=== PATIENT | male | born 1950 | race Caucasian/White ===

== ENCOUNTER 2018-07-13 06:16 | Inpatient (IN) ==
--- NOTE | 2018-06-08 15:59 | PAT Medication Instructions ---
Medication Instructions Date of Service June 08, 2018 Home Medications lisinopril 10 mg PO QAM DO NOT take the morning of surgery lisinopril 10 mg PO QAM Other Notes If you have any questions please call us at [phone] or [phone] or [phone] or [phone]
--- NOTE | 2018-06-11 10:12 | Anesthesiology Consultation ---
Date of Service June 11, 2018 Assessment & Plan (1) Encounter for pre-operative examination: Chart Review Chart Review: Acceptable Risk for Surgery and Patient seen in Pre Admission Testing Teaching & Discussion Pre-Anesthesia Teaching/Discussion Notes: Instructed NPO after midnight before surgery,except medications with 15 cc of water. Medication instructions provided according to the PAT guidelines. History Surgery Operation Date: 07/13/18 08:30 Proposed Procedures p Right Reverse Total Shoulder Arthroplasty - Baljit Murphy DO Height/Weight Height: 5 ft 9 in Weight: 106 kg Allergies Allergy/AdvReac Type Severity Reaction Status Date / Time Penicillins Allergy Mild UNKNOWN Unverified 06/11/18 10:29 REACTION Medications Home Medications Medication Instructions Recorded Confirmed Last Taken lisinopril 10 mg PO QAM 06/06/18 06/06/18 Unknown Past Medical History Medical History DJD (degenerative joint disease) Hypertension Obesity Past Family History Family History Mother Family history of diabetes mellitus Past Surgical History Surgical History Hx of tonsillectomy Hx of total knee replacement RIGHT Past Anesthesia History No Hx of Anesthesia Complications and No Family Hx of Anesthesia Complications History of PONV No Motion Sickness Screening History of Motion Sickness: No Social History Smoking Status: Former smoker Do You Dip or Chew Tobacco: Yes (REMOTE) Smoking End Date: QUIT 30+ YEARS AGO Hx Alcohol Use: Yes Alcohol type: beer alcohol intake frequency: holidays/special occasions only Hx Substance Use: No Exercise / Class Metabolic Activity II 4-5 Yardwork/Stairs/Walk up hill Review of Systems Right shoulder pain with RUE radiculopathy. Patient denies chest pain, shortness of breath, dyspnea on exertion, cough, wheezing, palpitations. Physical Exam Vital Signs VITALS BP 130/81 P 56 TEMP 97.8 SP02 93%RA RESP 18 Full neck and c-spine range of motion. Short neck. Full TMJ range of motion. TMD 3.5 finger breaths Mallampati Score 1 Dentition: intact Lungs: clear throughout to auscultation Cardiac: regular rate and rhythm, no murmurs noted Spine: normal Carotid arteries: negative bruit Extremities: no edema Testing Electrocardiogram Date: 06/11/18 SB at 55bpm. Chest X-Ray Date: 06/11/18 Findings: + NAD The heart is at the upper limits of normal in size. There is mild aortic tortuosity/ectasia. Echocardiogram Date: 12/29/15 EF 60-65%. No RWMA. No significant valvular disease. Laboratory Results 06/11/18 10:43 06/11/18 10:43 Blood Type A Positive 06/11/18 10:43 Antibody Screen NEGATIVE 06/11/18 10:43 PT 10.8 Seconds (9.0-12.0) 06/11/18 10:43 INR 1.1 (0.9-1.1) 06/11/18 10:43 APTT 28.0 Seconds (21.0-31.0) 06/11/18 10:43
--- NOTE | 2018-06-11 11:25 | XRay Report ---
XR chest Pre-admission PA/Lat CLINICAL HISTORY: Preoperative chest COMPARISON STUDY: 02/03/2015 FINDINGS: The heart is at the upper limits of normal in size. There is mild aortic tortuosity/ectasia . There is no failure. There is no focal pulmonary consolidation. There are no pleural effusions.[ IMPRESSION: No active disease in the chest. Electronically signed by: Alec Kumar M.D. 06/11/2018 11:24 AM
[2018-06-11 12:01] LABS: Basophils # (auto) 0.03 K/uL (0-0.2); Basophils % (auto) 0.5 %; Eosinophils # (auto) 0.27 K/uL (0-0.5); Eosinophils % (auto) 4.1 %; Hematocrit (blood only) 44.5 % (42-52); Hemoglobin 14.6 g/dL (14.0-18.0); Immature Granulocytes # (auto) 0.02 K/uL (0.00-0.02); Immature Granulocytes % (auto) 0.3 %; Lymphocytes # (auto) 1.97 K/uL (1.2-3.4); Lymphocytes % (auto) 30.2 %; Mean Corpuscular Hgb Conc 32.8 g/dL (32-36); Mean Platelet Volume 9.9 fL (7.4-10.4); Monocytes # (auto) 0.59 K/uL (0.11-0.59); Neutrophils # (auto) 3.65 K/uL (1.4-6.5); Neutrophils % (auto) 55.9 %; Platelet Count 274 K/uL (130-400); RDW Coefficient of Variation 13.9 % (11.5-14.5); RDW Standard Deviation 45.5 fL (36.4-46.3); White Blood Count 6.53 K/uL (4.8-10.8)
[2018-06-11 12:11] LABS: BUN Creatinine Ratio 24.4 (10-20); Calcium 9.1 mg/dl (8.5-10.1); Creatinine Clr Calc Pharmacy 72.7 ml/min; Est GFR (African American) 74.8; Est GFR (Non-African American) 64.6; Potassium 4.5 mmol/L (3.5-5.1)
[2018-06-11 12:12] LABS: INR 1.1 (0.9-1.1); Partial Thromboplastin Ratio 1.1; Prothrombin Time 10.8 Seconds (9.0-12.0)
--- NOTE | 2018-07-12 20:24 | History & Physical Report ---
Date of Service July 12, 2018 Assessment & Plan (1) Rotator cuff arthropathy of right shoulder: We will proceed with a right reverse shoulder arthroplasty. Postoperatively he will be placed in a sling and kept overnight for postoperative medical management. He plans to use [facility] upon discharge. Present on Admission?: Yes History of Present Illness Chief Complaint: Rotator cuff arthropathy of the right shoulder Primary Care Provider: Baljit Hutson is a pleasant 67-year-old male who is been having right shoulder pain for some time. He was diagnosed with a right rotator cuff tear in [address] Bowman with an MRI. He did not have surgery at that time. Over the past several months, his pain is gotten progressively worse. He is having a hard time lifting his arm above shoulder height. X-rays and clinical examination were diagnostic for rotator cuff arthropathy of the right shoulder. After failing conservative treatment, he has elected to proceed with a right reverse shoulder arthroplasty. Allergies Allergy/AdvReac Type Severity Reaction Status Date / Time Penicillins Allergy Mild UNKNOWN Unverified 06/11/18 10:29 REACTION Home Medications Home Medications Medication Instructions Recorded Confirmed Type lisinopril 10 mg PO QAM 06/06/18 06/06/18 History Past Med/Surg History Medical History DJD (degenerative joint disease) Hypertension Obesity Surgical History Hx of tonsillectomy Hx of total knee replacement RIGHT Family History Mother Family history of diabetes mellitus Social History Current Living Situation: Spouse Other Information That Helps Us Care for You: No Feels Safe at Home: Yes Safety Concerns: Feels Safe At This Time Smoking Status: Former smoker Do You Dip or Chew Tobacco: Yes (REMOTE) Smoking End Date: QUIT 30+ YEARS AGO Hx Alcohol Use: Yes Alcohol type: beer Alcohol Intake Frequency: holidays/ special occasions only Hx Substance Use: No Beliefs That Will Affect Care: None Preferred Language: Stateless Communication Ability: Effective Review of Systems All systems reviewed & are unremarkable except as noted in HPI & below Physical Exam 2 Constitutional: WD/WN, vitals as above Eyes: PERRL, conjunctivae normal, anicteric sclerae ENMT: external ear and nose normal, oropharynx normal Neck: trachea midline, no thyromegaly Respiratory: normal respiratory effort Cardiovascular: RRR, no murmur, no edema Gastrointestinal (Abdomen): normal bowel sounds, soft, nontender, no hepatosplenomegaly Musculoskeletal: Physical examination of the right shoulder reveals decreased range of motion and significant weakness. There is tenderness palpation along the anterior glenohumeral joint line. The right upper extremity is neurovascularly intact. Psychiatric: A+Ox3, euthymic affect Results & Data Diagnostic Findings Radiographs of the right shoulder show some signs of osteoarthritis with blunting of the greater tuberosity and some superior migration of the humeral head on the glenoid.
[~2018-07-13 06:16] MED LIST: ACETAMINOPHEN 500 MG TAB PO SCH; CEFAZOLIN - ALLERGY NOTED TO ORDERED MEDICATION SCH; CEFAZOLIN 2000MG 2,000 MG/15 ML SYR IV SCH; FAMOTIDINE 20 MG TAB PO SCH; GABAPENTIN 300 MG PO SCH; LR 15ML/HR IV SCH; LR 60ML/HR IV SCH; ROPIVACAINE 0.5% 5 MG/ML 30 ML VIAL ONE; ROPIVACAINE 0.5% HCL/PF 150 MG, BUPIVACAINE 0.5% MPF 30 ML, EPINEPHrine 30MG/30ML (OR U... INFIL SCH; TRANEXAMIC ACID 1,000 MG **IV Pre-op IV SCH
[2018-07-13] MEDS ORDERED: TRANEXAMIC ACID 1,000 MG **IV Intra-op IV SCH (06:30)
--- NOTE | 2018-07-13 06:50 | History & Physical Bridge Note ---
Date of Service July 13, 2018 History & Physical Bridge Note I have examined the patient, reviewed the History & Physical and in the interval since the performance of the History & Physical I have noted the following changes of clinical significance: no changes noted
[2018-07-13] MEDS ORDERED: POVIDONE-IODINE OP SOLN 30 ML BTL ONE (07:07)
[2018-07-13] MEDS ORDERED: ORTHO JOINT ANESTHETIC ONE (07:07)
[2018-07-13] MEDS ORDERED: BACITRACIN INJ 50,000 UNIT VIAL ONE (07:12)
[2018-07-13] MEDS ORDERED: MIDAZOLAM HCL 1 MG/ML 2ML VIAL ONE ×2 (07:22→07:23)
[2018-07-13] MEDS ORDERED: fentaNYL citrate 100 MCG/2 ML VIAL ONE (07:22)
[2018-07-13] MEDS ORDERED: ONDANSETRON INJ 2 MG/ML 2 ML VIAL ONE (07:22)
[2018-07-13] MEDS ORDERED: GLYCOPYRROLATE 0.2 MG/ML VIAL ONE (07:22)
[2018-07-13] MEDS ORDERED: LARYING-O-JET KIT (LTA) ONE (07:22)
[2018-07-13] MEDS ORDERED: DEXAMETHASONE SOD INJ 4 MG/ML VIAL ONE (07:22)
[2018-07-13] MEDS ORDERED: PROPOFOL IV EMULSION 10 MG/ML 20 ML VIAL IV ONE (07:22)
[2018-07-13] MEDS ORDERED: LIDOCAINE HCL 2% 2 ML VIAL/AMP(20MG/ML) INFIL ONE (07:22)
[2018-07-13] MEDS ORDERED: NEOSTIGMINE METHYLSULFATE 5 MG/5 ML SYR ONE (07:22)
[2018-07-13] MEDS ORDERED: BUPIVACAINE 0.5 % 5 MG/1 ML MPF 30ML VIAL ONE (07:51)
[2018-07-13] MEDS ORDERED: ATROPINE SULFATE 0.1 MG/ML 10ML SYR IV PRN (08:11)
[2018-07-13] MEDS ORDERED: LABETALOL HCL IV 5 MG/ML 20ML IV PRN (08:11)
[2018-07-13] MEDS ORDERED: ONDANSETRON INJ 2 MG/ML 2 ML VIAL IV PRN ×2 (08:11→12:17)
[2018-07-13] MEDS ORDERED: HYDROmorphone INJ 1 MG/ML SYRINGE IV PRN (08:11)
[2018-07-13] MEDS ORDERED: KETOROLAC TROMETHAMINE 15 MG/ML VIAL IV PRN (08:11)
[2018-07-13] MEDS ORDERED: ePHEDrine sulfate 50 MG/ML SYR ONE (08:53)
[2018-07-13] MEDS ORDERED: PHENYLEPHRINE 100MCG/ML 5ML SYR ONE (08:53)
[2018-07-13] MEDS ORDERED: ROCURONIUM BROMIDE 10 MG/ML 5 ML VIAL ONE (09:51)
--- NOTE | 2018-07-13 10:14 | Operative Report ---
Post Operative Report Pre & Post Diagnosis Operation Date: 07/13/18 08:30 Pre-Op Diagnosis: Chronic Rotator Cuff Tear Right Shoulder Post-Op Diagnosis: Chronic Rotator Cuff Tear Right Shoulder Procedure Operation Date: 07/13/18 08:30 Actual Procedures p Right Reverse Total Shoulder Arthroplasty(Right) - Baljit Murphy DO Surgeon Baljit Murphy DO Graphic Design Manager None Estimated Blood Loss 200 Findings Consistent with Post-Op Diagnosis Specimens Right humeral head Complications none Disposition Disposition: Recovery Room Indications Haresh is a pleasant 67-year-old male who is been dealing with chronic increasing right shoulder pain and weakness. MRI and clinical examination of the right shoulder have been diagnostic for rotator cuff arthropathy. After failing conservative treatment, he is elected proceed with a reverse right shoulder arthroplasty. Description of Procedure Implants used: I used a [employer] Comprehensive reverse total shoulder arthroplasty system with a size 11 press fit mini humeral stem, a standard humeral tray and a standard humeral bearing, a 25 mm mini baseplate with a 6.5 mm central screw and superior and inferior locking screws, and a size 36 mm eccentric glenosphere. The patient arrived at [facility] for the above procedure. There were seen in the preoperative holding area and the operative extremity was identified and signed. They were given a preoperative antibiotic and an interscalene nerve block. They were taken back to the operating room, laid on table in supine position, and put under general anesthesia. They were then put into the beachchair position. The shoulder was then prepped and draped in sterile fashion. A timeout was done and the patient in the operative extremity was properly identified. A deltopectoral approach was used. Dissection was taken down through the fascia and the deltoid was retracted laterally and the conjoined tendon was retracted medially. The anterior shoulder was exposed. The long head of the biceps tendon was tenodesed to the upper border of the pectoralis major. The subscapularis was then released off the lesser tuberosity with a centimeter of cuff tissue remaining. The inferior capsule was released and the humeral head was dislocated. A canal finding reamer was sent down the center of the humeral canal. Sequential reaming up to a size 11 reamer was done. Off that reamer, a proximal humeral resection guide was placed. The proximal humerus was resected at 135� of inclination and 25� of retroversion. Osteophytes were then removed and the glenoid was exposed. Time was spent doing a complete capsular and labral release. The glenoid guide was then placed in the inferior aspect of the glenoid. A 3.2 mm Steinmann pin was then placed into the glenoid vault at 10� of inclination. The glenoid baseplate was then reamed. The final size 25 mm mini baseplate was then impacted in the place. A 6.5 mm central screw was then placed followed by superior and inferior locking screws. A 36 mm eccentric glenoid sphere was then impacted into place. Surrounding soft tissues were then injected with 100 cc an orthopedic pain control cocktail. The proximal humerus was then exposed. Sequential broaching of the humerus up to a size 11 broach was done. Off that broach a standard humeral tray was trialed. The shoulder was then reduced , brought through a full range of motion and felt to be stable. The shoulder was then dislocated and the broach was removed. The final size 11 mini press- fit humeral stem was then impacted into place. A standard humeral bearing was then snapped onto a standard humeral tray and the ring-lock mechanism was engaged. The humeral tray was then impacted onto the humeral stem. The shoulder was once again reduced, brought through a full range of motion and felt to be stable. The subscapularis was then tenodesed back to the lesser tuberosity with transosseous FiberWire sutures and side to side sutures with the arm in 45� of external rotation. A dilute betadyne lavage was then done for 3 minutes. The joint was then irrigated with normal saline solution. Hemostasis was obtained. The skin was then closed with 2-0 Vicryl, 3-0V lock suture, and rick. A soft dressing and a regular arm sling was placed. The patient was then extubated and transferred to a hospital bed. They were taken to the postanesthesia care unit in stable condition. They tolerated the procedure well. I attest to the content of the Intraoperative Record and any orders documented therein. Any exceptions are noted below.
--- NOTE | 2018-07-13 11:27 | XRay Report ---
XR shoulder RT min 2V routine CLINICAL HISTORY: Post shoulder surgery postoperative evaluation COMPARISON: None. DISCUSSION: Right shoulder arthroplasty. Good contact between prosthetic and underlying bone. Expecte d soft tissue postoperative change. IMPRESSION: Anatomic alignment post right shoulder arthroplasty. The above report was generated using voice recognition software. It may contain grammatical, syntax or spelling errors. Electronically signed by: Peng Do M.D. 07/13/2018 11:25 AM
[2018-07-13] MEDS ORDERED: HYDROmorphone INJ 0.5 MG/0.5 ML SYR IV PRN (12:17)
[2018-07-13] MEDS ORDERED: BISACODYL 10 MG SUPP PR PRN (12:17)
[2018-07-13] MEDS ORDERED: METOCLOPRAMIDE HCL INJ 5 MG/ML 2 ML VIAL IV PRN (12:17)
[2018-07-13] MEDS ORDERED: MAGNESIUM HYDROXIDE SUSP 30 ML UDC PO PRN (12:17)
[2018-07-13] MEDS ORDERED: NALOXONE HCL 0.4 MG/1 ML VIAL/CARP IV PRN (12:17)
[2018-07-13] MEDS ORDERED: OXYCODONE HCL IR 5 MG TAB (IMMEDIATE RELEASE) PO PRN (12:17)
--- NOTE | 2018-07-13 12:35 | Anesthesiology Progress Note ---
Date of Service July 13, 2018 Anesthesia Post Procedure Vital Signs Vital Signs: Temp Pulse Pulse Resp BP BP Pulse Ox 07/13/18 11:45 70 13 129/73 95 07/13/18 11:35 36.6 C 68 17 133/73 93 07/13/18 11:25 58 L 16 142/72 H 93 07/13/18 11:15 67 16 142/75 H 97 07/13/18 11:05 66 14 162/77 H 97 07/13/18 10:55 67 17 145/78 H 98 07/13/18 10:45 71 22 148/94 H 97 07/13/18 10:35 58 L 19 146/73 H 100 07/13/18 10:27 36.0 C L 63 18 162/77 H 100 07/13/18 06:48 36.7 C 60 22 127/75 98 Pain Intensity Right Shoulder: Pain Intensity: 0 Notes Mental Status: alert / awake / arousable Patient Amnestic to Procedure: Yes Nausea / Vomiting: adequately controlled Pain: adequately controlled Airway Patency, RR, SpO2: stable & adequate BP & HR: stable & adequate Hydration State: stable & adequate Anesthetic Complications: no major complications apparent
[2018-07-13] MEDS: ACETAMINOPHEN 500 MG TAB PO SCH ×2 (14:24→21:53)
[2018-07-13] MEDS: KETOROLAC TROMETHAMINE 15 MG/ML VIAL IV SCH ×2 (14:25→19:35)
[2018-07-13] MEDS: CEFAZOLIN 2000MG 2,000 MG/15 ML SYR IV SCH (17:12)
[2018-07-13] MEDS: SODIUM CHLORIDE 0.9% 1000ML 1,000 ML IV SCH (17:25)
[2018-07-13] MEDS: DOCUSATE SODIUM 100 MG CAP PO SCH (20:44)
[2018-07-13] MEDS ORDERED: SENNA 8.6 MG TAB PO SCH (21:00)
[2018-07-14] MEDS: CEFAZOLIN 2000MG 2,000 MG/15 ML SYR IV SCH (00:55)
[2018-07-14] MEDS: KETOROLAC TROMETHAMINE 15 MG/ML VIAL IV SCH ×2 (00:55→07:35)
[2018-07-14] MEDS: SODIUM CHLORIDE 0.9% 1000ML 1,000 ML IV SCH (01:53)
[2018-07-14] MEDS: ACETAMINOPHEN 500 MG TAB PO SCH (05:49)
[2018-07-14 07:08] LABS: Hematocrit (blood only) 38.4 % (42-52); Hemoglobin 12.5 g/dL (14.0-18.0); Immature Granulocytes # (auto) 0.04 K/uL (0.00-0.02); Immature Granulocytes % (auto) 0.3 %; Lymphocytes # (auto) 0.64 K/uL (1.2-3.4); Lymphocytes % (auto) 5.2 %; Mean Corpuscular Hgb Conc 32.6 g/dL (32-36); Mean Corpuscular Volume 87.9 fL (80-100); Mean Platelet Volume 9.5 fL (7.4-10.4); Monocytes # (auto) 1.02 K/uL (0.11-0.59); Monocytes % (auto) 8.3 %; Neutrophils # (auto) 10.59 K/uL (1.4-6.5); Neutrophils % (auto) 86.2 %; Platelet Count 263 K/uL (130-400); RDW Coefficient of Variation 13.9 % (11.5-14.5); RDW Standard Deviation 45.1 fL (36.4-46.3); Red Blood Count 4.37 M/uL (4.7-6.1); White Blood Count 12.29 K/uL (4.8-10.8)
[2018-07-14 07:37] LABS: BUN Creatinine Ratio 16.7 (10-20); Creatinine Clr Calc Pharmacy 63.8 ml/min; Est GFR (African American) 65.1; Est GFR (Non-African American) 56.2; Potassium 4.7 mmol/L (3.5-5.1)
[2018-07-14] MEDS ORDERED: MULTIVITAMIN TAB PO SCH (09:00)
[2018-07-14] MEDS ORDERED: LISINOPRIL 10 MG TAB PO SCH (09:00)
[2018-07-14] MEDS: DOCUSATE SODIUM 100 MG CAP PO SCH (09:19)
--- NOTE | 2018-07-14 09:24 | Orthopedic Progress Note ---
Date of Service July 14, 2018 Assessment & Plan (1) Rotator cuff arthropathy of right shoulder: Overall he is doing very well. Is not have any pain in the shoulder. He is happy with his progress at this point. He will be seen by physical therapy today for range of motion exercises. He can be discharged home later today with [facility]. Present on Admission?: Yes Subjective Haresh was seen and examined at bedside this morning. Overall is doing very well. Is not having any pain in the right shoulder. His motor functions already back. He has no complaints. Physical Exam 2 Vital Signs (Past 24 Hours): Last Vital Signs Temp 36.6 C 07/14/18 07:58 Pulse 67 07/14/18 07:58 Resp 18 07/14/18 07:58 BP 147/75 H 07/14/18 07:58 Pulse Ox 93 07/14/18 07:58 Musculoskeletal: On physical examination of the right shoulder, the dressing is clean and dry. His radial, median, and ulnar nerves are all checked and intact his wrist. His axillary nerve is not checked yet. His sensations back. He is wearing a sling as instructed. Results & Data Laboratory Results H & H 06/11/18 07/14/18 Range/Units 10:43 06:48 Hgb 14.6 12.5 L (14.0-18.0) g/dL Hct 44.5 38.4 L (42-52) % Coagulation 06/11/18 Range/Units 10:43 INR 1.1 (0.9-1.1) Diagnostic Findings Postoperative x-rays of the right shoulder show the prosthesis to be in anatomic alignment without any evidence of fracture, dislocation, or loosening.
--- NOTE | 2018-07-14 09:26 | Discharge Summary ---
Date of Service July 14, 2018 Admission HPI Per Admitting Provider Haresh is a pleasant 67-year-old male who is been having right shoulder pain for some time. He was diagnosed with a right rotator cuff tear in [address] Bowman with an MRI. He did not have surgery at that time. Over the past several months, his pain is gotten progressively worse. He is having a hard time lifting his arm above shoulder height. X-rays and clinical examination were diagnostic for rotator cuff arthropathy of the right shoulder. After failing conservative treatment, he has elected to proceed with a right reverse shoulder arthroplasty. Specialty Data Orthopedic H & H 06/11/18 07/14/18 Range/Units 10:43 06:48 Hgb 14.6 12.5 L (14.0-18.0) g/dL Hct 44.5 38.4 L (42-52) % Coagulation 06/11/18 Range/Units 10:43 INR 1.1 (0.9-1.1) Discharge Data Consultations 07/13/18 12:17 Consult Case Management - Discharge Planning Routine Procedures Performed Operation Date: 07/13/18 08:30 Actual Procedures p Right Reverse Total Shoulder Arthroplasty(Right) - Baljit Murphy DO Hospital Course (1) Rotator cuff arthropathy of right shoulder: On July 13, 2018 Haresh arrived at [facility] and underwent a right reverse shoulder arthroplasty without complication. He had a general anesthetic and a right interscalene nerve block. Postoperatively he was placed in a sling and discharged to general orthopedic floors. His hospital course is uneventful. On postop day #1 his H&H was stable and his pain was well controlled. He was seen by physical therapy and able to do range of motion exercises. He was then discharged home with [facility]. He will follow-up with orthopedics in 2 weeks. Discharge Instructions Home Medications Medication Instructions Recorded Confirmed lisinopril 10 mg PO QAM 06/06/18 07/13/18 Previous Rx's Medication Instructions Recorded oxycodone 5 - 10 mg PO Q4H PRN #30 tab 07/14/18
--- NOTE | 2018-07-14 10:52 | Anesthesiology Progress Note ---
Date of Service July 14, 2018 Anesthesia Post Procedure Vital Signs Vital Signs: Temp Pulse Pulse Resp BP Pulse Ox 07/14/18 07:58 36.6 C 67 18 147/75 H 93 07/14/18 04:00 36.5 C 67 18 152/81 H 94 07/13/18 23:40 36.5 C 75 18 156/78 H 91 07/13/18 21:48 36.6 C 74 18 123/76 93 07/13/18 15:05 36.3 C L 82 20 145/88 H 94 07/13/18 14:05 78 18 152/92 H 95 07/13/18 13:06 74 16 143/79 H 94 07/13/18 12:38 65 18 139/68 94 07/13/18 12:05 36.4 C L 68 18 124/68 93 07/13/18 11:45 70 13 129/73 95 07/13/18 11:35 36.6 C 68 17 133/73 93 07/13/18 11:25 58 L 16 142/72 H 93 07/13/18 11:15 67 16 142/75 H 97 07/13/18 11:05 66 14 162/77 H 97 07/13/18 10:55 67 17 145/78 H 98 Pain Intensity Right Shoulder: Pain Intensity: 0 Notes Mental Status: alert / awake / arousable Patient Amnestic to Procedure: Yes Nausea / Vomiting: adequately controlled Pain: adequately controlled Airway Patency, RR, SpO2: stable & adequate BP & HR: stable & adequate Hydration State: stable & adequate Anesthetic Complications: no major complications apparent and Pt Satisfied with anesthetic care
== END 2018-07-14 12:12 | disposition home or self-care (01) | DRG 483 ==
LOC: ASU 06:16 → 3W 10:16

== ENCOUNTER 2021-08-13 10:10 | Inpatient (IN) ==
[2021-08-13 11:46] LABS: Basophils # (auto) 0.01 K/uL (0-0.2); Basophils % (auto) 0.2 %; Eosinophils # (auto) 0.09 K/uL (0-0.5); Eosinophils % (auto) 1.4 %; Hematocrit (blood only) 37.3 % (42-52); Hemoglobin 12.6 g/dL (14.0-18.0); Immature Granulocytes # (auto) 0.03 K/uL (0.00-0.02); Immature Granulocytes % (auto) 0.5 %; Lymphocytes % (auto) 18.3 %; Mean Corpuscular Hemoglobin 29.4 pg (25-34); Mean Corpuscular Hgb Conc 33.8 g/dL (32-36); Mean Corpuscular Volume 86.9 fL (80-100); Mean Platelet Volume 9.3 fL (7.4-10.4); Monocytes # (auto) 0.67 K/uL (0.11-0.59); Monocytes % (auto) 10.2 %; Neutrophils # (auto) 4.56 K/uL (1.4-6.5); Neutrophils % (auto) 69.4 %; Platelet Count 272 K/uL (130-400); RDW Coefficient of Variation 15.2 % (11.5-14.5); RDW Standard Deviation 48.3 fL (36.4-46.3); Red Blood Count 4.29 M/uL (4.7-6.1); White Blood Count 6.56 K/uL (4.8-10.8)
--- NOTE | 2021-08-13 12:02 | XRay Report ---
XR chest 1V portable CLINICAL HISTORY: assess vol status. L sided end inspiratory crackle TECHNIQUE: Single frontal radiograph of the chest was obtained. Comparison: Comparison is made to chest one view 07/18/2021 FINDINGS: Right reverse shoulder arthroplasty is seen. The aorta is tortuous. The remainder of the cardiomedias tinal silhouette is unremarkable. The lungs are clear. No evidence of pleural effusion or pneumothora x. IMPRESSION: No acute chest disease. ACT 112: Negative or not required by law. Electronically signed by: Vinicio Hyatt M.D. 08/13/2021 12:01 PM
[2021-08-13 12:04] LABS: INR 1.1 (0.9-1.1); Partial Thromboplastin Ratio 1.1; Partial Thromboplastin Time 29.9 Seconds (21.0-31.0); Prothrombin Time 11.3 Seconds (9.0-12.0)
[2021-08-13 12:06] LABS: Alanine Aminotransferase 19 U/L (7-52); Albumin Globulin Ratio 1.7 (0.9-2); Alkaline Phosphatase 44 U/L (34-104); Anion Gap 7 (3-11); Aspartate Aminotransferase 12 U/L (13-39); BUN Creatinine Ratio 19.1 (10-20); Bilirubin,Total 0.7 mg/dl (0.2-1.0); Blood Urea Nitrogen 25 mg/dl (6-23); Calcium 9.2 mg/dl (8.5-10.1); Carbon Dioxide 26 mmol/L (21-32); Chloride 104 mmol/L (98-107); Creatinine Clr Calc Pharmacy 57.9 ml/min; Est GFR (African American) 62.6 ml/min; Globulin 2.4 gm/dl (2.5-4.0); Glucose 111 mg/dl (70-99(Fasting)); Lipase 22 U/L (11-82); Potassium 4.4 mmol/L (3.5-5.1); Sodium 137 mmol/L (136-145); Total Protein 6.4 gm/dl (6.0-8.3)
[2021-08-13 12:07] LABS: Troponin I < 0.03 ng/ml (0-0.04)
[2021-08-13] MEDS ORDERED: SODIUM CHLORIDE 0.9% 1000ML 1,000 ML IV ONE (12:46)
[2021-08-13] MEDS ORDERED: ACETAMINOPHEN 1,000 MG/100 ML VIAL IV STA (12:46)
[2021-08-13] MEDS ORDERED: OPTIRAY 320 100ml IV ONE (13:15)
--- NOTE | 2021-08-13 13:55 | CT Scan Report ---
CT OF THE ABDOMEN AND PELVIS WITH CONTRAST CLINICAL HISTORY: Hematochezia. COMPARISON STUDY: CT of the abdomen and pelvis December 21, 2015. MRI of the abdomen December 29, 2015. TECHNIQUE: Following IV administration of 94 mL of Optiray, axial images of the abdomen and pelvis we re obtained from the lung bases to the proximal femurs. Images were reviewed in the axial, sagittal, and coronal planes. IV contrast was administered without complication. Automated exposure control wa s utilized for the study. A dose lowering technique was utilized adhering to the principles of ALARA . CT DOSE: 665.62 mGy.cm FINDINGS: Coronary artery calcification is incidentally noted. Note is made of multiple airspace opac ities within the lower lungs, including a 2.4 cm right lower lobe airspace opacity. No pneumatosis, f ree air or portal venous gas is present. A few subcentimeter hepatic lesions are too small to charact erize. The spleen, adrenal glands and pancreas are unremarkable. No biliary or pancreatic ductal dila tation. Water attenuation bilateral renal lesions reflect cysts. Previously described hypodense lesio ns were shown to represent initial cysts on previous MRI. The largest is a 3.8 cm lesion within the m idpole of the left kidney. There is no hydronephrosis. There is no evidence for a bowel obstruction. Note is made of moderate circumferential wall thickening of the splenic flexure of the colon with mil d pericolonic infiltration. No free air or abscess. No additional sites of bowel wall thickening are present. Appendix is not visualized. No intraluminal contrast is noted on this examination to suggest active bleed by CT. Prostate is enlarged. No suspicious osseous lesions. IMPRESSION: 1. Moderate circumferential wall thickening of the splenic flexure of the colon with mild pericolonic infiltration. This favors a nonspecific colitis. A nonemergent colonoscopy once symptoms resolve is recommended to exclude the possibility of an underlying lesion. No intraluminal contrast to suggest a ctive bleed by CT. 2. Multiple airspace opacities within the lower lungs which favor an infectious process, possibly res olving. ACT 112: Negative or not required by law. Electronically signed by: Rodrigo Penn M.D. 08/13/2021 1:53 PM
--- NOTE | 2021-08-13 14:08 | History & Physical Report ---
Date of Service August 13, 2021 Assessment & Plan (1) GI bleed: Plan: -Patient is currently stable. -Suspect this is LGI bleed, in the setting of 4-5 episodes of painless hematochezia today. Internal hemorrhoids vs polyps vs diverticular bleed, cannot rule out malignancy given age, however no ALARM symptoms reported. CT showed intraluminal wall thickening of the colon suggestive of nonspecific colitis. No intraluminal contrast to suggest active bleed. -Initial Hgb today 12.6, recheck 4 hours later--> 10.8. Was 14.5 on 07/26. -Follow hemoglobin Q4h, transfuse for Hgb <7 or for indication of massive bleed (ie hemodynamic changes) -[facility], who recommend trending Hgb, Bentyl prn for diarrhea/abdominal cramping, PO protonix. Plan for colonoscopy Monday, 08/16. -Clear liquids for now. -LR at 75 cc/hr. (2) Hypertension: Plan: -Continue lisinopril 10 mg as long as BP can tolerate it. -No evidence of DUSTIN today, continue to monitor renal function on BMP. (3) COVID-19: Plan: -Positive on 07/25, patient reports full recovery, negative COVID test today. Plan: -Admit to PCU. -SCDs for DVT ppx, defer chemoppx in setting of acute bleed. -Full Code. History of Present Illness Chief Complaint: rectal bleeding x 1 day Primary Care Provider: Baljit Boateng Patient is 70-year-old male with past medical history of osteoarthritis, hypertension, and COVID-19 infection 3 weeks ago who presents today with acute episodes of rectal bleeding. Patient states he woke up this morning with crampy abdominal pain and felt like he had to move his bowels. When he did, he noticed formed stool with bright red blood in the toilet bowl. Had 2 more episodes of this at home before presenting to the ED. Since he has been here, his stools have become more liquid in consistency, continuing to have bloody bowel movements approximately 2 here. He notes notes approximately 1 week ago an episode nausea followed by emesis after eating spaghetti. He was without abdominal pain at this time and denies any blood in his vomit. No recent episodes of this and otherwise feels well, no fever/chills, night sweats, weight loss, dysphagia, fatigue, chest pain, palpitations, shortness of breath, abdominal pain, melena, hematemesis, syncope, dizziness, weakness. He is not on any blood thinners. Has a history of polyps that were removed on colonoscopy 5 years ago, denies knowledge of hemorrhoids. No personal or family history of esophageal, stomach, or colon cancer. Upon presentation to ED, patient is hemodynamically stable, vital signs within normal limits. Labs remarkable for Hgb 12.6, down from 14.5 on 07/26, BUN 25, glucose 111, stool occult positive, GI panel negative. All other labs within normal limits. CTAP showed moderate circumferential wall thickening of the splenic flexure of the colon with mild pericolonic infiltration. No intraluminal contrast to suggest active bleed. Patient was diagnosed with COVID-19 infection on 07/25 at [facility], presented to the [facility] ED on 07/26 and received monoclonal antibodies. He has since recovered from his COVID-19 infection. COVID negative today. Allergies Allergy/AdvReac Type Severity Reaction Status Date / Time Penicillins Allergy Mild UNKNOWN Verified 08/13/21 11:16 REACTION Home Medications Medication Instructions Recorded Confirmed Type lisinopril 10 mg tablet 10 mg PO QAM 06/06/18 08/13/21 History Past Med/Surg History Medical History DJD (degenerative joint disease) Hypertension Obesity Surgical History Hx of tonsillectomy Hx of total knee replacement RIGHT Family History Mother Family history of diabetes mellitus Social History Smoking Status: Former smoker Tobacco Type: Cigarettes Second Hand Exposure: No; Do You Dip or Chew Tobacco: Yes; Tobacco Cessation Education Requested by Patient: No Hx Alcohol Use: No Hx Substance Use: No Preferred Language: Hebrew Communication Ability: Effective Pharmacology Associate Required: No Beliefs That Will Affect Care: None marital status: Current Living Situation: Spouse Other Information That Helps Us Care for You: No Feels Safe at Home: Yes Safety Concerns: Feels Safe At This Time Assistive Devices: None Review of Systems Review of Systems: Constitutional: No fever, sweats or chills Eyes: No diplopia, no worsening or blurred vision ENT: normal hearing, no trouble swallowing Respiratory: No cough, sputum, dyspnea at rest or on exertion Cardiovascular: No chest pain, tightness or palpitations Abdomen: abdominal cramping this morning, 4-5 episodes of painless hematochezia today; nausea with nonbloody emesis x1 ~1 week ago Musculoskeletal: No joint pain, calf pain, swelling Neurologic: No weakness, numbness/tingling, or balance problems Psychiatric: No anxiety or depression Skin: No rash or itch Physical Exam Physical Exam: General: awake, alert, no apparent distress Head: Normocephalic, atraumatic ENT: PERRL, EOMI, no pharyngeal exudate, mucous membranes moist Chest: Clear to auscultation, on room air, no adventitious breath sounds Cardiac: Regular rate and rhythm, no murmur, no JVD, normal peripheral pulses, good capillary refill Abdominal: NABS x 4 quadrants, soft, nontender to palpation, no rebound, guarding or tenderness Extremities: Normal inspection, no peripheral edema or erythema, calfs nontender to palpation Psych: Normal mood and affect Neuro: AAO x 3, strength intact bilaterally and rated 5/5, no motor deficits, speech is clear, no peripheral sensory deficits Skin: no rash or erythema Results & Data Results & Data ([facility]) Vital Signs (Past 12 Hours) Vital Signs Temp Pulse Resp BP Pulse Ox 08/13/21 12:01 70 18 96 08/13/21 10:13 36.8 C 73 16 155/97 H 98 Laboratory Results Abnormal lab results 08/13/21 08/13/21 08/13/21 Range/Units 11:34 11:34 12:12 RBC 4.29 L (4.7-6.1) M/uL Hgb 12.6 L (14.0-18.0) g/dL Hct 37.3 L (42-52) % RDW Std Deviation 48.3 H (36.4-46.3) fL RDW Coeff of Karla 15.2 H (11.5-14.5) % [place] # (Auto) 0.67 H (0.11-0.59) K/uL Immature Gran # (Auto) 0.03 H (0.00-0.02) K/uL BUN 25 H (6-23) mg/dl Glucose 111 H (70-99(Fasting)) mg/dl AST 12 L (13-39) U/L Globulin 2.4 L (2.5-4.0) gm/dl POC Stool Occult Blood Positive A (Negative) Diagnostic Findings Chest X-Ray 08/13/21 11:10 XR chest 1V portable CLINICAL HISTORY: assess vol status. L sided end inspiratory crackle TECHNIQUE: Single frontal radiograph of the chest was obtained. Comparison: Comparison is made to chest one view 07/18/2021 FINDINGS: Right reverse shoulder arthroplasty is seen. The aorta is tortuous. The remainder of the cardiomediastinal silhouette is unremarkable. The lungs are clear. No evidence of pleural effusion or pneumothorax. IMPRESSION: No acute chest disease. ACT 112: Negative or not required by law. Electronically signed by: Vinicio Hyatt M.D. 08/13/2021 12:01 PM Abdomen/Pelvis CT 08/13/21 11:16 CT OF THE ABDOMEN AND PELVIS WITH CONTRAST CLINICAL HISTORY: Hematochezia. COMPARISON STUDY: CT of the abdomen and pelvis December 21, 2015. MRI of the abdomen December 29, 2015. TECHNIQUE: Following IV administration of 94 mL of Optiray, axial images of the abdomen and pelvis were obtained from the lung bases to the proximal femurs. Images were reviewed in the axial, sagittal, and coronal planes. IV contrast was administered without complication. Automated exposure control was utilized for the study. A dose lowering technique was utilized adhering to the principles of ALARA. CT DOSE: 665.62 mGy.cm FINDINGS: Coronary artery calcification is incidentally noted. Note is made of multiple airspace opacities within the lower lungs, including a 2.4 cm right lower lobe airspace opacity. No pneumatosis, free air or portal venous gas is present. A few subcentimeter hepatic lesions are too small to characterize. The spleen, adrenal glands and pancreas are unremarkable. No biliary or pancreatic ductal dilatation. Water attenuation bilateral renal lesions reflect cysts. Previously described hypodense lesions were shown to represent initial cysts on previous MRI. The largest is a 3.8 cm lesion within the midpole of the left kidney. There is no hydronephrosis. There is no evidence for a bowel obstruction. Note is made of moderate circumferential wall thickening of the splenic flexure of the colon with mild pericolonic infiltration. No free air or abscess. No additional sites of bowel wall thickening are present. Appendix is not visualized. No intraluminal contrast is noted on this examination to suggest active bleed by CT. Prostate is enlarged. No suspicious osseous lesions. IMPRESSION: 1. Moderate circumferential wall thickening of the splenic flexure of the colon with mild pericolonic infiltration. This favors a nonspecific colitis. A nonemergent colonoscopy once symptoms resolve is recommended to exclude the possibility of an underlying lesion. No intraluminal contrast to suggest active bleed by CT. 2. Multiple airspace opacities within the lower lungs which favor an infectious process, possibly resolving. ECG Additional Comments: NSR, 68 BPM, RBBB, no ST segment or T wave changes Code Status & VTE Plan Code Status Full Code. Supervising Physician Co-Signing Physician Notes I supervised Hansa Lemos PA-C on the care of this patient. I interviewed and examined the patient independently of her. The plan is as written in her note except for any following changes/exceptions: None 70yo M w/ hx of HTN who presents with acute onset, painless BRBPR this morning. At least 4-5 episodes of significant volume. Most recent colonoscopy in 2019 with only a few polps. No major NSAID use or other anticoagulation. As per Ms. Lemos's note, will trend vitals and hgb. Good IV access with large-bore IVs. Blood consent signed on chart. Clear liquid diet. GI consulted: Will see tomorrow and tentatively plan for colonoscopy on Monday. Hemoglobin stable over last 2 checks. Will check again early in the morning, but hopefully this is sign that bleeding is over and he is now just evacuating old blood. PG Care Time/CCT Total # of Minutes Spent Total Time Spent with Patient: Total time spent is greater than 50% in coordination of care (as documented) at patient's floor/unit and/or counseling patient: Coding Level of Care Code 32615 Initial Inpt Care Lvl 2 Diagnoses GI bleed K92.2 Hypertension I10 COVID-19 U07.1
--- NOTE | 2021-08-13 14:15 | Emergency Department Note ---
Impression & Plan GI bleed, Hematochezia, Anemia ED Provider Note NAME: NABILA MACHUCA AGE: 70 SEX: M ARRIVES VIA: Walk-In INFORMANT: Patient ED PROVIDER(S): Chi Pete MD CHIEF COMPLAINT: Blood per rectum PLAN: Disposition: Admit MEDICAL DECISION MAKING: The patient is a pleasant 70 gentleman with a past medical history of htn and recent covid (07/25/21 [facility]) and monoclonal ab treatment (07/26/21 [facility]) who presents to the emergency department for evaluation of episodes of bright red hematochezia since this AM. He notes blood streaking on wiping and moderate amount of blood mixed in to the toilet bowl. He notes that the BMs this AM were loose/diarrhea. Denies diarrhea on previous days. His BM this AM was preceded by periumbilical and L abd pain, since resolved. Patient notes that he had similar abdominal pains on 07/29/21 and 08/11/21, w/ those episodes being preceded by eating spaghetti. On 08/11/21, he had several hours of emesis. He denies prior hx of hematochezia, but notes he may have had hemorrhoid in the past. Patient denies family hx of colon malignancy. Per [facility] records, last colonoscopy on 01/05/16 w/ 2 benign adenomatous polyps w/ 5 year f/u recommended. Patient states he has felt at baseline this week and has had decent appetite. His covid symptoms have resolved. On arrival, the patient is fatigued and uncomfortable but no acute distress, afebrile with stable vital signs. He appears clinically dry. His mild lower a bdominal discomfort without discrete tenderness. Of note, he did have a moderate sized episode of hematochezia in the emergency department. EKG without overt acute ischemia WBC and platelets within normal limits. H/H 12.6/37.3 decreased from a month ago when his hemoglobin was 14.5 though he has been as low as 4.5 in 2019. Chemistry without metabolic acidosis. Electrolytes without significant abnormality. COVID-19 RNA, NILESH test is negative today. Stool PCR is pending. Chest x-ray negative for acute cardiopulmonary process. CT of the abdomen pelvis demonstrates findings suggestive of nonspecific colitis. Given the patient's active hematochezia he agrees with plan for admission. Patient was consented for transfusion of blood products if it were to be required. However given he is hemodynamically stable with hemoglobin of 12.6 no indication for transfusion at this moment. Case was discussed with Hansa ROB PAC with Dr. Hollis [facility] hospitalist, who will evaluate the patient for admission. This patient was managed with the assistance of resident, Dr. Burdick. I discussed t he case with the resident, examined the patient, and confirm the findings and plan as documented in this note. Triage Nursing notes reviewed and agree them. Prior medical records reviewed Vital Signs: reviewed and remarkable for no significant abnormalities Differential diagnosis: Diverticulosis, AVM, coagulopathy, colitis, inflammatory bowel disease, malignancy, Talia-Franks tear, esophagitis, peptic ulcer disease, variceal bleed, gastritis, epistaxis, fissure, hemorrhoids, as well as other pathologies. ER treatment provided: See below. Diagnostics interpreted by me: ECG: Normal sinus rhythm, 68 bpm, right bundle branch block, no overt ST elevation. QTc 433, QRS 144 Cardiac Monitoring: An order for continuous cardiac monitoring was placed and demonstrated Normal sinus rhythm, 68 bpm, no ectopy. Laboratory studies: See below Imaging studies: See below Consultation(s): Hansa ROB PAC with Dr. Hollis [facility] hospitalist HPI: The patient is a pleasant 70 gentleman with a past medical history of htn and recent covid (07/25/21 [facility]) and monoclonal ab treatment (07/26/21 [facility]) who presents to the emergency department for evaluation of episodes of bright red hematochezia since this AM. He notes blood streaking on wiping and moderate amount of blood mixed in to the toilet bowl. He notes that the BMs this AM were loose/diarrhea. Denies diarrhea on previous days. His BM this AM was preceded by periumbilical and L abd pain, since resolved. Patient notes that he had similar abdominal pains on 07/29/21 and 08/11/21, w/ those episodes being preceded by eating spaghetti. On 08/11/21, he had several hours of emesis. He denies prior hx of hematochezia, but notes he may have had hemorrhoid in the past. Patient denies family hx of colon malignancy. Per [facility] records, last colonoscopy on 01/05/16 w/ 2 benign adenomatous polyps w/ 5 year f/u recommended. Patient states he has felt at baseline this week and has had decent appetite. His covid symptoms have resolved. ROS: See above HPI for pertinent positives & negatives. A total of 10 systems reviewed and were otherwise negative. VITALS:See Below PHYSICAL EXAMINATION: GENERAL: Awake, alert, fatigued-appearing, in no distress HENT: Normocephalic, atraumatic. Oropharynx with dry mucous membranes and otherwise unremarkable. EYES: Normal conjunctiva. Sclera non-icteric. NECK: Supple. No nuchal rigidity. FROM. No JVD. RESPIRATORY: Clear to auscultation. CARDIAC: Regular rate, normal rhythm. Extremities warm and well perfused. Pulses equal. ABDOMEN: Soft, non-distended. Mild lower abdominal discomfort without discrete tenderness to palpation. No rebound or guarding. No masses. RECTAL: Maroon colored stool that is Hemoccult positive per resident exam. No melena. MUSCULOSKELETAL: Chest examination reveals no tenderness. The back is symmetrical on inspection without obvious abnormality. There is no CVA tenderness to palpation. No joint edema. LOWER EXTREMITIES: Calves are equal size bilaterally and non-tender. No edema. No discoloration. NEURO: Normal sensorium. No sensory or motor deficits noted. SKIN: No rash or jaundice noted. Chi Pete MD Past Med/Surg History Medical History COVID-19 DJD (degenerative joint disease) Hypertension Obesity Surgical History Hx of tonsillectomy Hx of total knee replacement RIGHT Family History Mother Family history of diabetes mellitus Social History Smoking Status: Former smoker Tobacco Type: Cigarettes Second Hand Exposure: No; Do You Dip or Chew Tobacco: Yes; Tobacco Cessation Education Requested by Patient: No Hx Alcohol Use: No Hx Substance Use: No Preferred Language: Ukrainian Communication Ability: Effective Layout Worker Required: No Beliefs That Will Affect Care: None marital status: Current Living Situation: Spouse Other Information That Helps Us Care for You: No Feels Safe at Home: Yes Safety Concerns: Feels Safe At This Time Assistive Devices: None Allergies Allergies Allergy/AdvReac Type Severity Reaction Status Date / Time Penicillins Allergy Mild UNKNOWN Verified 08/13/21 11:16 REACTION Home Meds Home Medications Medication Instructions Recorded Confirmed lisinopril 10 mg tablet 10 mg PO QAM 06/06/18 08/13/21 Results & Data (ED) Vital Signs Vital Signs - 24 hr 08/13/21 10:13 08/13/21 12:01 08/13/21 14:24 Temperature 36.8 C Temperature Source Temporal Artery Scan Pulse Rate 73 70 Pulse Rate [Radial] 76 Respiratory Rate 16 18 18 Blood Pressure 155/97 H Blood Pressure [Left Arm] 137/86 Blood Pressure Mean 116 Blood Pressure Mean [Left Arm] 103 Pulse Oximetry 98 96 99 Oxygen Delivery Method Room Air Room Air Sepsis Recent Fever Within 48 Hours No Sepsis New/Unexplained Change in Mental Status No Sepsis Action Taken by Nursing No Action Required Laboratory Data Attestation: I reviewed the patient's lab results. Result diagrams: 08/13/21 19:37 08/13/21 11:34 Lab Results 08/13/21 08/13/21 08/13/21 Range/Units 11:28 11:34 11:34 WBC 6.56 (4.8-10.8) K/uL RBC 4.29 L (4.7-6.1) M/uL Hgb 12.6 L (14.0-18.0) g/dL Hct 37.3 L (42-52) % MCV 86.9 (80-100) fL MCH 29.4 (25-34) pg MCHC 33.8 (32-36) g/dL RDW Std Deviation 48.3 H (36.4-46.3) fL RDW Coeff of Karla 15.2 H (11.5-14.5) % Plt Count 272 (130-400) K/uL MPV 9.3 (7.4-10.4) fL Immature Gran % (Auto) 0.5 % Neut % (Auto) 69.4 % Lymph % (Auto) 18.3 % Willacy % (Auto) 10.2 % Eos % (Auto) 1.4 % Baso % (Auto) 0.2 % Neut # (Auto) 4.56 (1.4-6.5) K/uL Lymph # (Auto) 1.20 (1.2-3.4) K/uL Willacy # (Auto) 0.67 H (0.11-0.59) K/uL Eos # (Auto) 0.09 (0-0.5) K/uL Baso # (Auto) 0.01 (0-0.2) K/uL Immature Gran # (Auto) 0.03 H (0.00-0.02) K/uL PT 11.3 (9.0-12.0) Seconds INR 1.1 (0.9-1.1) APTT 29.9 (21.0-31.0) Seconds PTT Ratio 1.1 Sodium (136-145) mmol/L Potassium (3.5-5.1) mmol/L Chloride (98-107) mmol/L Carbon Dioxide (21-32) mmol/L Anion Gap (3-11) BUN (6-23) mg/dl Creatinine (0.6-1.4) mg/dl Est Cr Clr Drug Dosing ml/min Est GFR ( Amer) ml/min Est GFR (Non-Af Amer) ml/min BUN/Creatinine Ratio (10-20) Glucose (70-99(Fasting)) mg/dl Calcium (8.5-10.1) mg/dl Total Bilirubin (0.2-1.0) mg/dl AST (13-39) U/L ALT (7-52) U/L Alkaline Phosphatase (34-104) U/L Troponin I (0-0.04) ng/ml Total Protein (6.0-8.3) gm/dl Albumin (3.4-5.0) gm/dl Globulin (2.5-4.0) gm/dl Albumin/Globulin Ratio (0.9-2) Lipase (11-82) U/L POC Stool Occult Blood (Negative) Stl C. cayetanensis PCR (NotDetected) Stool Rotavirus A PCR (NotDetected) Stl Adenov F 40/41 PCR (NotDetected) Stool Astrovirus (PCR) (NotDetected) Stool Campylobacter PCR (NotDetected) Stl C. diff Tox A/B PCR (NotDetected) Stool Cryptosporidium PCR (NotDetected) Stl E.coli Shiga Tox PCR (NotDetected) Stl Enterotoxigenic E PCR (NotDetected) Stool EPEC (PCR) (NotDetected) Stool EAEC (PCR) (NotDetected) Stl E. histolytica PCR (NotDetected) Stool Giardia Lamblia PCR (NotDetected) Stool Salmonella PCR (NotDetected) Stool Sapovirus (PCR) (NotDetected) Stl P. shigelloides PCR (NotDetected) Stl Shigella/EIEC PCR (NotDetected) St Y.enterocolitica PCR (NotDetected) Stool Vibrio (PCR) (NotDetected) Stl Vibrio cholerae PCR (NotDetected) Stl Norovirus GI/GII PCR (NotDetected) SARS-CoV-2, RNA, NAAT (NEGATIVE) Blood Type A Positive Antibody Screen NEGATIVE 08/13/21 08/13/21 08/13/21 Range/Units 11:34 12:12 12:14 WBC (4.8-10.8) K/uL RBC (4.7-6.1) M/uL Hgb (14.0-18.0) g/dL Hct (42-52) % MCV (80-100) fL MCH (25-34) pg MCHC (32-36) g/dL RDW Std Deviation (36.4-46.3) fL RDW Coeff of Karla (11.5-14.5) % Plt Count (130-400) K/uL MPV (7.4-10.4) fL Immature Gran % (Auto) % Neut % (Auto) % Lymph % (Auto) % Willacy % (Auto) % Eos % (Auto) % Baso % (Auto) % Neut # (Auto) (1.4-6.5) K/uL Lymph # (Auto) (1.2-3.4) K/uL Willacy # (Auto) (0.11-0.59) K/uL Eos # (Auto) (0-0.5) K/uL Baso # (Auto) (0-0.2) K/uL Immature Gran # (Auto) (0.00-0.02) K/uL PT (9.0-12.0) Seconds INR (0.9-1.1) APTT (21.0-31.0) Seconds PTT Ratio Sodium 137 (136-145) mmol/L Potassium 4.4 (3.5-5.1) mmol/L Chloride 104 (98-107) mmol/L Carbon Dioxide 26 (21-32) mmol/L Anion Gap 7 (3-11) BUN 25 H (6-23) mg/dl Creatinine 1.31 (0.6-1.4) mg/dl Est Cr Clr Drug Dosing 57.9 ml/min Est GFR ( Amer) 62.6 ml/min Est GFR (Non-Af Amer) 54.0 ml/min BUN/Creatinine Ratio 19.1 (10-20) Glucose 111 H (70-99(Fasting)) mg/dl Calcium 9.2 (8.5-10.1) mg/dl Total Bilirubin 0.7 (0.2-1.0) mg/dl AST 12 L (13-39) U/L ALT 19 (7-52) U/L Alkaline Phosphatase 44 (34-104) U/L Troponin I < 0.03 (0-0.04) ng/ml Total Protein 6.4 (6.0-8.3) gm/dl Albumin 4.0 (3.4-5.0) gm/dl Globulin 2.4 L (2.5-4.0) gm/dl Albumin/Globulin Ratio 1.7 (0.9-2) Lipase 22 (11-82) U/L POC Stool Occult Blood Positive A (Negative) Stl C. cayetanensis PCR (NotDetected) Stool Rotavirus A PCR (NotDetected) Stl Adenov F 40/41 PCR (NotDetected) Stool Astrovirus (PCR) (NotDetected) Stool Campylobacter PCR (NotDetected) Stl C. diff Tox A/B PCR (NotDetected) Stool Cryptosporidium PCR (NotDetected) Stl E.coli Shiga Tox PCR (NotDetected) Stl Enterotoxigenic E PCR (NotDetected) Stool EPEC (PCR) (NotDetected) Stool EAEC (PCR) (NotDetected) Stl E. histolytica PCR (NotDetected) Stool Giardia Lamblia PCR (NotDetected) Stool Salmonella PCR (NotDetected) Stool Sapovirus (PCR) (NotDetected) Stl P. shigelloides PCR (NotDetected) Stl Shigella/EIEC PCR (NotDetected) St Y.enterocolitica PCR (NotDetected) Stool Vibrio (PCR) (NotDetected) Stl Vibrio cholerae PCR (NotDetected) Stl Norovirus GI/GII PCR (NotDetected) SARS-CoV-2, RNA, NAAT NEGATIVE (NEGATIVE) Blood Type Antibody Screen 08/13/21 Range/Units 13:02 WBC (4.8-10.8) K/uL RBC (4.7-6.1) M/uL Hgb (14.0-18.0) g/dL Hct (42-52) % MCV (80-100) fL MCH (25-34) pg MCHC (32-36) g/dL RDW Std Deviation (36.4-46.3) fL RDW Coeff of Karla (11.5-14.5) % Plt Count (130-400) K/uL MPV (7.4-10.4) fL Immature Gran % (Auto) % Neut % (Auto) % Lymph % (Auto) % Willacy % (Auto) % Eos % (Auto) % Baso % (Auto) % Neut # (Auto) (1.4-6.5) K/uL Lymph # (Auto) (1.2-3.4) K/uL Willacy # (Auto) (0.11-0.59) K/uL Eos # (Auto) (0-0.5) K/uL Baso # (Auto) (0-0.2) K/uL Immature Gran # (Auto) (0.00-0.02) K/uL PT (9.0-12.0) Seconds INR (0.9-1.1) APTT (21.0-31.0) Seconds PTT Ratio Sodium (136-145) mmol/L Potassium (3.5-5.1) mmol/L Chloride (98-107) mmol/L Carbon Dioxide (21-32) mmol/L Anion Gap (3-11) BUN (6-23) mg/dl Creatinine (0.6-1.4) mg/dl Est Cr Clr Drug Dosing ml/min Est GFR ( Amer) ml/min Est GFR (Non-Af Amer) ml/min BUN/Creatinine Ratio (10-20) Glucose (70-99(Fasting)) mg/dl Calcium (8.5-10.1) mg/dl Total Bilirubin (0.2-1.0) mg/dl AST (13-39) U/L ALT (7-52) U/L Alkaline Phosphatase (34-104) U/L Troponin I (0-0.04) ng/ml Total Protein (6.0-8.3) gm/dl Albumin (3.4-5.0) gm/dl Globulin (2.5-4.0) gm/dl Albumin/Globulin Ratio (0.9-2) Lipase (11-82) U/L POC Stool Occult Blood (Negative) Stl C. cayetanensis PCR Not Detected (NotDetected) Stool Rotavirus A PCR Not Detected (NotDetected) Stl Adenov F 40/41 PCR Not Detected (NotDetected) Stool Astrovirus (PCR) Not Detected (NotDetected) Stool Campylobacter PCR Not Detected (NotDetected) Stl C. diff Tox A/B PCR Not Detected (NotDetected) Stool Cryptosporidium PCR Not Detected (NotDetected) Stl E.coli Shiga Tox PCR Not Detected (NotDetected) Stl Enterotoxigenic E PCR Not Detected (NotDetected) Stool EPEC (PCR) Not Detected (NotDetected) Stool EAEC (PCR) Not Detected (NotDetected) Stl E. histolytica PCR Not Detected (NotDetected) Stool Giardia Lamblia PCR Not Detected (NotDetected) Stool Salmonella PCR Not Detected (NotDetected) Stool Sapovirus (PCR) Not Detected (NotDetected) Stl P. shigelloides PCR Not Detected (NotDetected) Stl Shigella/EIEC PCR Not Detected (NotDetected) St Y.enterocolitica PCR Not Detected (NotDetected) Stool Vibrio (PCR) Not Detected (NotDetected) Stl Vibrio cholerae PCR Not Detected (NotDetected) Stl Norovirus GI/GII PCR Not Detected (NotDetected) SARS-CoV-2, RNA, NAAT (NEGATIVE) Blood Type Antibody Screen Administered Medications Lactated Ringer's (Lr) 1,000 mls @ 75 mls/hr IV .[id number] GERTRUDIS Stop: 09/12/21 15:14 Last Infusion: 08/13/21 21:03 Dose: 75 mls/hr Documented by: [id number] Admin: 08/13/21 16:18 Dose: 125 mls/hr Documented by: [id number] Pantoprazole Sodium (Pantoprazole 40 Mg Tab) 40 mg PO DAILY GERTRUDIS Stop: 09/12/21 16:29 Last Admin: 08/13/21 16:47 Dose: 40 mg Documented by: [id number] Discontinued Medications Sodium Chloride (Nss 1000ml) 1,000 mls @ 999 mls/hr IV .[id number] ONE Stop: 08/13/21 13:46 Last Infusion: 08/13/21 14:25 Dose: 0 mls/hr Documented by: [id number] Admin: 08/13/21 13:00 Dose: 999 mls/hr Documented by: [id number] Acetaminophen (Ofirmev) 1,000 mg in 100 mls @ 400 mls/hr IV NOW STA Stop: 08/13/21 13:00 Last Admin: 08/13/21 13:01 Dose: Not Given Documented by: [id number] Ioversol (Optiray 320 100ml) 94 ml IV ONCE ONE Stop: 08/13/21 13:16 Last Admin: 08/13/21 13:15 Dose: 94 ml Documented by: [id number] Lisinopril (Lisinopril 10 Mg Tab) 10 mg PO NOW ONE Stop: 08/13/21 15:16 Last Admin: 08/13/21 16:11 Dose: Not Given Documented by: [id number] Imaging Data Radiologist's Impression: Chest X-Ray 08/13/21 11:10 XR chest 1V portable CLINICAL HISTORY: assess vol status. L sided end inspiratory crackle TECHNIQUE: Single frontal radiograph of the chest was obtained. Comparison: Comparison is made to chest one view 07/18/2021 FINDINGS: Right reverse shoulder arthroplasty is seen. The aorta is tortuous. The remainder of the cardiomediastinal silhouette is unremarkable. The lungs are clear. No evidence of pleural effusion or pneumothorax. IMPRESSION: No acute chest disease. ACT 112: Negative or not required by law. Electronically signed by: Vinicio Hyatt M.D. 08/13/2021 12:01 PM Abdomen/Pelvis CT 08/13/21 11:16 CT OF THE ABDOMEN AND PELVIS WITH CONTRAST CLINICAL HISTORY: Hematochezia. COMPARISON STUDY: CT of the abdomen and pelvis December 21, 2015. MRI of the abdomen December 29, 2015. TECHNIQUE: Following IV administration of 94 mL of Optiray, axial images of the abdomen and pelvis were obtained from the lung bases to the proximal femurs. Im ages were reviewed in the axial, sagittal, and coronal planes. IV contrast was administered without complication. Automated exposure control was utilized for the study. A dose lowering technique was utilized adhering to the principles of ALARA. CT DOSE: 665.62 mGy.cm FINDINGS: Coronary artery calcification is incidentally noted. Note is made of multiple airspace opacities within the lower lungs, including a 2.4 cm right lower lobe airspace opacity. No pneumatosis, free air or portal venous gas is present. A few subcentimeter hepatic lesions are too small to characterize. The spleen, adrenal glands and pancreas are unremarkable. No biliary or pancreatic ductal dilatation. Water attenuation bilateral renal lesions reflect cysts. Previously described hypodense lesions were shown to represent initial cysts on previous MRI. The largest is a 3.8 cm lesion within the midpole of the left kidney. There is no hydronephrosis. There is no evidence for a bowel obstruction. Note is made of moderate circumferential wall thickening of the splenic flexure of the colon with mild pericolonic infiltration. No free air or abscess. No additional sites of bowel wall thickening are present. Appendix is not visualized. No intraluminal contrast is noted on this examination to suggest active bleed by CT. Prostate is enlarged. No suspicious osseous lesions. IMPRESSION: 1. Moderate circumferential wall thickening of the splenic flexure of the colon with mild pericolonic infiltration. This favors a nonspecific colitis. A nonemergent colonoscopy once symptoms resolve is recommended to exclude the possibility of an underlying lesion. No intraluminal contrast to suggest active bleed by CT. 2. Multiple airspace opacities within the lower lungs which favor an infectious process, possibly resolving. ACT 112: Negative or not required by law. Electronically signed by: Rodrigo Penn M.D. 08/13/2021 1:53 PM Discharge Plan Visit Data Chief Complaint: Rectal Bleed Stated Complaint: RECTAL BLEED ED Provider: Chi Pete ED Midlevel Provider: Luc Burdick Discharge Problem: GI bleed, Hematochezia, Anemia Patient Disposition: Admitted As Inpatient Discharge Instructions Interventions: ED Discharge Assessment Last Done: 08/13/21 17:13 Resident Activity Tracking Resident Involvement: Resident Care Provided Care Provided: Adult ED Addendum August 13, 2021 20:11 Resident attestation: I participated in the care of this patient. Please see attending documentation.
[2021-08-13 14:34] LABS: Adenovirus F 40/41 PCR Not Detected (NotDetected); Astrovirus PCR Not Detected (NotDetected); Campylobacter PCR Not Detected (NotDetected); Clostridium diff Toxin A/B PCR Not Detected (NotDetected); Cryptosporidium PCR Not Detected (NotDetected); Cyclospora cayetanensis PCR Not Detected (NotDetected); Entamoeba histolytica PCR Not Detected (NotDetected); Enteroaggregative E.coli(EAEC) Not Detected (NotDetected); Enteropathogenic E.coli (EPEC) Not Detected (NotDetected); Enterotoxigenic E.coli (ETEC) Not Detected (NotDetected); Giardia lamblia PCR Not Detected (NotDetected); Norovirus GI/GII PCR Not Detected (NotDetected); Plesiomonas shigelloides PCR Not Detected (NotDetected); Rotavirus A PCR Not Detected (NotDetected); Salmonella PCR Not Detected (NotDetected); Sapovirus PCR Not Detected (NotDetected); Shiga-like Toxin E.coli (STEC) Not Detected (NotDetected); Shigella/Enteroinvasive E.coli Not Detected (NotDetected); Vibrio cholerae PCR Not Detected (NotDetected); Vibrio species PCR Not Detected (NotDetected); Yersinia enterocolitica PCR Not Detected (NotDetected)
[2021-08-13] MEDS ORDERED: lisinopril 10 MG TAB PO ONE (15:15)
[2021-08-13 15:43] LABS: Basophils # (auto) 0.01 K/uL (0-0.2); Basophils % (auto) 0.2 %; Eosinophils % (auto) 1.7 %; Hematocrit (blood only) 32.2 % (42-52); Hemoglobin 10.8 g/dL (14.0-18.0); Immature Granulocytes # (auto) 0.04 K/uL (0.00-0.02); Immature Granulocytes % (auto) 0.7 %; Lymphocytes # (auto) 1.76 K/uL (1.2-3.4); Mean Corpuscular Hemoglobin 28.9 pg (25-34); Mean Corpuscular Hgb Conc 33.5 g/dL (32-36); Mean Corpuscular Volume 86.1 fL (80-100); Mean Platelet Volume 9.2 fL (7.4-10.4); Monocytes # (auto) 0.52 K/uL (0.11-0.59); Monocytes % (auto) 8.6 %; Neutrophils # (auto) 3.63 K/uL (1.4-6.5); Neutrophils % (auto) 59.8 %; Platelet Count 237 K/uL (130-400); RDW Coefficient of Variation 15.3 % (11.5-14.5); RDW Standard Deviation 48.7 fL (36.4-46.3); Red Blood Count 3.74 M/uL (4.7-6.1); White Blood Count 6.06 K/uL (4.8-10.8)
[2021-08-13] MEDS: LACTATED RINGER'S 1,000 ML IV SCH (16:18)
[2021-08-13] MEDS ORDERED: DICYCLOMINE HCL 10 MG CAP PO PRN (16:20)
[2021-08-13] MEDS: PANTOprazole 40 MG TAB PO SCH (16:47)
[2021-08-13] MEDS ORDERED: POLYETHYLENE (MIRALAX) 17 GM PACK PO PRN (17:19)
[2021-08-13] MEDS ORDERED: ONDANSETRON INJ 2 MG/ML 2 ML VIAL IV PRN (17:19)
[2021-08-13] MEDS ORDERED: ACETAMINOPHEN 325 MG TAB PO PRN (17:19)
[2021-08-13 19:58] LABS: Basophils # (auto) 0.01 K/uL (0-0.2); Basophils % (auto) 0.2 %; Eosinophils # (auto) 0.17 K/uL (0-0.5); Eosinophils % (auto) 3.3 %; Hematocrit (blood only) 32.5 % (42-52); Hemoglobin 10.6 g/dL (14.0-18.0); Immature Granulocytes # (auto) 0.04 K/uL (0.00-0.02); Immature Granulocytes % (auto) 0.8 %; Lymphocytes # (auto) 1.68 K/uL (1.2-3.4); Lymphocytes % (auto) 32.3 %; Mean Corpuscular Hemoglobin 28.5 pg (25-34); Mean Corpuscular Hgb Conc 32.6 g/dL (32-36); Mean Corpuscular Volume 87.4 fL (80-100); Mean Platelet Volume 9.4 fL (7.4-10.4); Monocytes # (auto) 0.63 K/uL (0.11-0.59); Monocytes % (auto) 12.1 %; Neutrophils # (auto) 2.67 K/uL (1.4-6.5); Neutrophils % (auto) 51.3 %; Platelet Count 240 K/uL (130-400); RDW Coefficient of Variation 15.4 % (11.5-14.5); Red Blood Count 3.72 M/uL (4.7-6.1)
--- NOTE | 2021-08-13 22:39 | Electrocardiogram Report ---
Test Reason : Blood Pressure : / mmHG Vent. Rate : 068 BPM Atrial Rate : 068 BPM P-R Int : 184 ms QRS Dur : 154 ms QT Int : 408 ms P-R-T Axes : 016 -07 -01 degrees QTc Int : 433 ms Poor data quality, interpretation may be adversely affected Normal sinus rhythm Right bundle branch block Inferior infarct , age undetermined Abnormal ECG When compared with ECG of 26-JUL-2021 21:09, Right bundle branch block has replaced Non-specific intra-ventricular conduction delay Inferior infarct is now Present Confirmed by Fili Devries ([id number]) on 08/13/2021 10:39:15 PM Referred By: Baljit Boateng Confirmed By:Fili Devries
[2021-08-14 01:56] LABS: Basophils # (auto) 0.02 K/uL (0-0.2); Basophils % (auto) 0.5 %; Eosinophils # (auto) 0.18 K/uL (0-0.5); Eosinophils % (auto) 4.1 %; Hematocrit (blood only) 30.4 % (42-52); Hemoglobin 9.8 g/dL (14.0-18.0); Immature Granulocytes # (auto) 0.03 K/uL (0.00-0.02); Immature Granulocytes % (auto) 0.7 %; Lymphocytes # (auto) 1.54 K/uL (1.2-3.4); Lymphocytes % (auto) 34.7 %; Mean Corpuscular Hemoglobin 27.9 pg (25-34); Mean Corpuscular Hgb Conc 32.2 g/dL (32-36); Mean Corpuscular Volume 86.6 fL (80-100); Mean Platelet Volume 8.9 fL (7.4-10.4); Monocytes # (auto) 0.61 K/uL (0.11-0.59); Monocytes % (auto) 13.7 %; Neutrophils # (auto) 2.06 K/uL (1.4-6.5); Neutrophils % (auto) 46.3 %; Platelet Count 216 K/uL (130-400); RDW Coefficient of Variation 15.3 % (11.5-14.5); RDW Standard Deviation 48.4 fL (36.4-46.3); Red Blood Count 3.51 M/uL (4.7-6.1); White Blood Count 4.44 K/uL (4.8-10.8)
[2021-08-14 02:16] LABS: BUN Creatinine Ratio 16.8 (10-20); Creatinine Clr Calc Pharmacy 66.9 ml/min; Est GFR (African American) 74.8 ml/min; Est GFR (Non-African American) 64.6 ml/min
[2021-08-14] MEDS: LACTATED RINGER'S 1,000 ML IV SCH (02:41)
[2021-08-14] MEDS: lisinopril 10 MG TAB PO SCH (09:14)
[2021-08-14] MEDS: PANTOprazole 40 MG TAB PO SCH (09:14)
--- NOTE | 2021-08-14 14:01 | Gastrointestinal Consultation ---
Date of Consultation August 14, 2021 Assessment & Plan (1) Hematochezia: (2) GI bleed: (3) Anemia: acute GI bleed with hematochezia suspect diverticular bleeding vs. AVM recs: supportive care, clear liquid diet --prep with golytely starting tomorrow night at 6 pm --NPO post midnight monday night except for prep --colonoscopy monday to further evaluate Thank you for allowing me to participate in the care of this patient History of Present Illness Attending Physician: Arturo Escobar MD History of Present Illness 70 yo male with hx covid, HTN here with hematochezia. Started yesterday with abdominal pains then had painless hematochezia multiple episodes and came to ER.Currently no abd pains or other issues. Last colonoscopy 5 years ago with polyps removed. No family hx colon cancer. CBC and CMP reviewed. Allergies Allergy/AdvReac Type Severity Reaction Status Date / Time Penicillins Allergy Mild UNKNOWN Verified 08/13/21 11:16 REACTION Home Medications Medication Instructions Recorded Confirmed Type lisinopril 10 mg tablet 10 mg PO QA 06/06/18 08/13/21 History Patient History Medical History COVID-19 DJD (degenerative joint disease) Hypertension Obesity Surgical History Hx of tonsillectomy Hx of total knee replacement RIGHT Family History Mother Family history of diabetes mellitus Social History Smoking Status: Former smoker Tobacco Type: Cigarettes Second Hand Exposure: No; Do You Dip or Chew Tobacco: Yes; Tobacco Cessation Education Requested by Patient: No Hx Alcohol Use: No Hx Substance Use: No Preferred Language: Togolese Communication Ability: Effective Steam Plant Records Clerk Required: No Beliefs That Will Affect Care: None marital status: Current Living Situation: Spouse Other Information That Helps Us Care for You: No Feels Safe at Home: Yes Safety Concerns: Feels Safe At This Time Assistive Devices: None Review of Systems Constitutional: no fever, no chills and no weight loss Eyes: as per Subjective / HPI Ear, Nose, Mouth, Throat: as per Subjective / HPI Respiratory: no dyspnea and no dyspnea on exertion Cardiovascular: no chest pain and no palpitations Gastrointestinal: as per Subjective / HPI Musculoskeletal: no joint pain and no swelling Integumentary: no rash and no lesions Neurologic: no numbness and no paresthesia Psychiatric: no depression and no anxiety Endocrine: no fatigue Hematologic / Lymphatic: no easy bleeding and no easy bruising Physical Exam Constitutional: WD/WN, vitals as above Eyes: EOM intact bilaterally Neck: normal visual inspection Respiratory: normal respiratory effort, lungs clear to auscultation Cardiovascular: RRR, no murmur, no edema Gastrointestinal (Abdomen): Inspection/Auscultation: abdomen normal to inspection; abdomen not distended Percussion/Palpation: abdomen soft; abdomen nontender and no hepatosplenomegaly Musculoskeletal: Extremities: no cyanosis Gait: normal gait Skin: no rashes, warm and dry Neurologic: moves all extremities Psychiatric: A+Ox3, euthymic affect Results & Data ([facility]) Vital Signs (Past 12 Hours) Vital Signs Temp Pulse Resp BP Pulse Ox 08/14/21 11:45 36.6 C 53 L 18 141/76 H 97 08/14/21 07:48 36.8 C 58 L 20 149/79 H 96 08/14/21 03:22 36.7 C 56 L 18 137/74 95 PG Care Time/CCT Total # of Minutes Spent Total Time Spent with Patient: Total time spent is greater than 50% in coordination of care (as documented) at patient's floor/unit and/or counseling patient: Coding Level of Care Code 34885 Initial Inpt Care Lvl 3 Diagnoses Hematochezia K92.1 GI bleed K92.2 GI bleed type/associated pathology: unspecified gastrointestinal hemorrhage type Anemia D64.9 Anemia type: unspecified type (1) GI bleed GI bleed type/associated pathology: unspecified gastrointestinal hemorrhage type Qualified Code(s): K92.2 - Gastrointestinal hemorrhage, unspecified (2) Anemia Anemia type: unspecified type Qualified Code(s): D64.9 - Anemia, unspecified
--- NOTE | 2021-08-14 15:13 | Hospitalist Progress Note ---
Date of Service August 14, 2021 Assessment & Plan (1) GI bleed: Plan: -Patient is currently hemodynamically stable. -Suspect this is LGI bleed, in the setting of 4-5 episodes of painless hematochezia on day of admission. Internal hemorrhoids vs polyps vs diverticular bleed, cannot rule out malignancy given age, however no ALARM symptoms reported. CT showed intraluminal wall thickening of the colon suggestive of nonspecific colitis. No intraluminal contrast to suggest active bleed. -Initial Hgb 12.6 -> 9.8 with IV fluids. -CBC daily, stable for downgrade to med/tele -Appreciate GI consult planning on colonoscopy on Monday -Full liquids today, clears tomorrow, NPO @ midnight on Monday night -Stop IV fluids as drinking well. (2) Acute blood loss anemia: Plan: As above (3) Hypertension: Plan: -Continue lisinopril 10 mg daily (4) COVID-19: Plan: -Positive on 07/25, patient reports full recovery, negative COVID test on admission Plan: VTE prophylaxis - SCDs, no chemical prophylaxis in setting of acute GI bleed Code status - Full Code. Disposition - stable for downgrade to med/tele Admission and Anticipated Discharge Date Admission Date: August 13, 2021 Subjective No significant melena or bright red blood stool since admission. No abdominal pain, nausea or vomiting. Feels at his baseline. Drinking clear liquids well. With regards to anemia he denies any chest pain, shortness of breath or dizziness. Review of Systems Review of Systems: All systems reviewed & are unremarkable except as noted in Subjective Physical Exam Constitutional: WD/WN, vitals as above Eyes: + anicteric sclerae; normal pupil size Respiratory: normal respiratory effort, lungs clear to auscultation Cardiovascular: RRR, no murmur, no edema Gastrointestinal (Abdomen): Inspection/Auscultation: normal bowel sounds Percussion/Palpation: abdomen soft; abdomen nontender Skin: no rashes, warm and dry Neurologic: moves all extremities and awake; not confused Psychiatric: A+Ox3, euthymic affect Results & Data Results & Data ([facility]) Vital Signs (Past 12 Hours) Vital Signs Temp Pulse Resp BP Pulse Ox 08/14/21 11:45 36.6 C 53 L 18 141/76 H 97 08/14/21 07:48 36.8 C 58 L 20 149/79 H 96 08/14/21 03:22 36.7 C 56 L 18 137/74 95 PG Care Time/CCT Total # of Minutes Spent Total Time Spent with Patient: Total time spent is greater than 50% in coordination of care (as documented) at patient's floor/unit and/or counseling patient: Coding Level of Care Code 73699 Subseq Hosp Care Lvl 2 Diagnoses GI bleed K92.2 GI bleed type/associated pathology: unspecified gastrointestinal hemorrhage type Hypertension I10 COVID-19 U07.1 Acute blood loss anemia D62 (1) GI bleed GI bleed type/associated pathology: unspecified gastrointestinal hemorrhage type Qualified Code(s): K92.2 - Gastrointestinal hemorrhage, unspecified
[2021-08-15 07:30] LABS: Hematocrit (blood only) 31.9 % (42-52); Hemoglobin 10.4 g/dL (14.0-18.0); Mean Corpuscular Hemoglobin 28.7 pg (25-34); Mean Corpuscular Hgb Conc 32.6 g/dL (32-36); Mean Corpuscular Volume 87.9 fL (80-100); Mean Platelet Volume 9.1 fL (7.4-10.4); Platelet Count 220 K/uL (130-400); RDW Coefficient of Variation 15.3 % (11.5-14.5); RDW Standard Deviation 49.2 fL (36.4-46.3); Red Blood Count 3.63 M/uL (4.7-6.1); White Blood Count 4.09 K/uL (4.8-10.8)
[2021-08-15 08:05] LABS: BUN Creatinine Ratio 9.2 (10-20); Calcium 8.4 mg/dl (8.5-10.1); Creatinine Clr Calc Pharmacy 63.8 ml/min; Est GFR (African American) 70.3 ml/min; Est GFR (Non-African American) 60.7 ml/min; Potassium 4.3 mmol/L (3.5-5.1)
[2021-08-15] MEDS: PANTOprazole 40 MG TAB PO SCH (09:20)
[2021-08-15] MEDS: lisinopril 10 MG TAB PO SCH (09:20)
--- NOTE | 2021-08-15 18:07 | Hospitalist Progress Note ---
Date of Service August 15, 2021 Assessment & Plan (1) GI bleed: Plan: -Patient is currently hemodynamically stable. -Suspect this is LGI bleed, in the setting of 4-5 episodes of painless hematochezia on day of admission. Internal hemorrhoids vs polyps vs diverticular bleed, cannot rule out malignancy given age, however no ALARM symptoms reported. CT showed intraluminal wall thickening of the colon suggestive of nonspecific colitis. No intraluminal contrast to suggest active bleed. -Initial Hgb 12.6 -> 10.4 with IV fluids. -CBC daily, stable for downgrade to med/surg -Appreciate GI consult planning on colonoscopy on Monday -Clear liquids, NPO @ midnight (2) Acute blood loss anemia: Plan: As above (3) Hypertension: Plan: -Continue lisinopril 10 mg daily (4) COVID-19: Plan: -Positive on 07/25, patient reports full recovery, negative COVID test on admiss ion Plan: VTE prophylaxis - SCDs, no chemical prophylaxis in setting of acute GI bleed Code status - Full Code. Disposition - stable for downgrade to med/tele Admission and Anticipated Discharge Date Admission Date: August 13, 2021 Subjective Reports old blood in stool. Otherwise no abdominal pain, nausea, vomiting, shortness of breath, chest pain. Review of Systems Review of Systems: All systems reviewed & are unremarkable except as noted in Subjective Physical Exam Constitutional: WD/WN, vitals as above Eyes: + anicteric sclerae; normal pupil size Respiratory: normal respiratory effort, lungs clear to auscultation Cardiovascular: RRR, no murmur, no edema Gastrointestinal (Abdomen): Inspection/Auscultation: normal bowel sounds Percussion/Palpation: abdomen soft; abdomen nontender Skin: no rashes, warm and dry Neurologic: moves all extremities and awake; not confused Psychiatric: A+Ox3, euthymic affect Results & Data Results & Data ([facility]) Vital Signs (Past 12 Hours) Vital Signs Temp Pulse Pulse Pulse Resp BP Pulse Ox 08/15/21 15:28 164/83 H 08/15/21 14:46 167/83 H 08/15/21 14:34 36.4 C L 87 16 188/81 H 100 08/15/21 07:57 36.4 C L 57 L 16 149/87 H 98 03/20/22 07:31 50 L PG Care Time/CCT Total # of Minutes Spent Total Time Spent with Patient: Total time spent is greater than 50% in coordination of care (as documented) at patient's floor/unit and/or counseling patient: Coding Level of Care Code 80902 Subseq Hosp Care Lvl 1 Diagnoses GI bleed K92.2 GI bleed type/associated pathology: unspecified gastrointestinal hemorrhage type Acute blood loss anemia D62 Hypertension I10 COVID-19 U07.1 (1) GI bleed GI bleed type/associated pathology: unspecified gastrointestinal hemorrhage type Qualified Code(s): K92.2 - Gastrointestinal hemorrhage, unspecified
[2021-08-15] MEDS: LAVAGE SOLUTION 4000ML PO SCH (19:26)
[2021-08-16 05:51] LABS: Hematocrit (blood only) 32.7 % (42-52); Hemoglobin 10.8 g/dL (14.0-18.0); Mean Corpuscular Hemoglobin 28.8 pg (25-34); Mean Corpuscular Volume 87.2 fL (80-100); Mean Platelet Volume 9.1 fL (7.4-10.4); Platelet Count 245 K/uL (130-400); RDW Coefficient of Variation 15.3 % (11.5-14.5); RDW Standard Deviation 48.4 fL (36.4-46.3); Red Blood Count 3.75 M/uL (4.7-6.1)
[2021-08-16] MEDS: LAVAGE SOLUTION 4000ML PO SCH (05:53)
[2021-08-16 06:35] LABS: BUN Creatinine Ratio 9.6 (10-20); Calcium 8.6 mg/dl (8.5-10.1); Creatinine Clr Calc Pharmacy 66.6 ml/min; Est GFR (African American) 74.1 ml/min; Est GFR (Non-African American) 63.9 ml/min; Potassium 4.6 mmol/L (3.5-5.1)
[2021-08-16] MEDS: PANTOprazole 40 MG TAB PO SCH (08:23)
[2021-08-16] MEDS: lisinopril 10 MG TAB PO SCH (09:17)
--- NOTE | 2021-08-16 14:59 | Gastroenterology Progress Note ---
Date of Service August 16, 2021 Assessment & Plan (1) Hematochezia: (2) Abnormal CT of the abdomen: Plan: Abdominal pain followed by rectal bleeding with CT scan suggesting splenic flexure wall thickening is suggestive of ischemic colitis versus infectious. Also considered other hemorrhoidal or diverticular bleeding. Colonoscopy this afternoon by Dr. Tesfaye. Further recommendations to follow Admission and Anticipated Discharge Date Admission Date: August 13, 2021 Supervising Physician Co-Signing Physician Notes I performed a history and physical examination of the patient today, including specifically on physical exam - soft abdomen. I have discussed the patient's management with the advanced practitioner. Please refer to the nurse practitioner's note for the documented findings and plan of care. Colonoscopy today Patient was explained in detail regarding risks, benefits, limitations and alternatives of the above endoscopic procedure. Risks of intravenous sedation used for procedure were also explained. Risks include, but not limited to perforation, bleeding, infection, respiratory distress, cardiac arrest and . Patient is also aware about the possibility of missed lesion. Patient's questions were answered. The patient verbalized understanding the information and agreed to undergo the procedure. Subjective Blood clear during the colonoscopy prep. Most recent bowel movements clear liquid. No abdominal pain though did have significant amount of abdominal pain in the periumbilical area just prior to his first bloody bowel movement before admission. Awake alert oriented, walking around in the room. Awaiting colonoscopy this afternoon Review of Systems Review of Systems: ROS: Gen: Denies weakness, fevers, weight loss Eyes: No eye redness, or pain, no recent vision changes Resp: No SOB, no cough Cardio: No palpitations/irregular beats, no chest pain GI: No abdominal pain, no nausea/vomiting : Denies pain on urination Skin: No jaundice, itching or new rashes Physical Exam Constitutional: well developed and cooperative Eyes: PERRL, conjunctivae normal, anicteric sclerae Respiratory: normal respiratory effort, lungs clear to auscultation Cardiovascular: RRR, no murmur, no edema Gastrointestinal (Abdomen): normal bowel sounds, soft, nontender, no hepatosplenomegaly Skin: no rashes, warm and dry normal turgor Neurologic: PERRL, EOMI, accommodation nl, no face palsy, no dysarthria awake; not confused Psychiatric: A+Ox3, euthymic affect Results & Data ([facility]) Vital Signs (Past 12 Hours) Vital Signs Temp Pulse Resp BP Pulse Ox 08/16/21 14:46 36.5 C 63 14 156/84 H 100 08/16/21 07:35 36.4 C L 59 L 16 163/91 H 98 Laboratory Results WBC 5, Hb 10, HCT 32, plts 245, Na 137, K 4.6, Cl 105, CO2 26, BUN 11, Cr 1.14, glucose 107, Diagnostic Findings CTAP 08/13 with IV contrast 1. Moderate circumferential wall thickening of the splenic flexure of the colon with mild pericolonic infiltration. This favors a nonspecific colitis. A nonemergent colonoscopy once symptoms resolve is recommended to exclude the possibility of an underlying lesion. No intraluminal contrast to suggest active bleed by CT. 2. Multiple airspace opacities within the lower lungs which favor an infectious process, possibly resolving.
--- NOTE | 2021-08-16 15:29 | Hospitalist Progress Note ---
Date of Service August 16, 2021 Assessment & Plan (1) GI bleed: Plan: -Patient is currently hemodynamically stable. -Suspect this is LGI bleed, in the setting of 4-5 episodes of painless hematochezia on day of admission. Internal hemorrhoids vs polyps vs diverticular bleed, cannot rule out malignancy given age, however no ALARM symptoms reported. CT showed intraluminal wall thickening of the colon suggestive of nonspecific colitis. No intraluminal contrast to suggest active bleed. -Initial Hgb 12.6 -> 10.8 with IV fluids, stable over the last few days -Appreciate GI consult planning on colonoscopy on this afternoon -NPO pending colonoscopy (2) Acute blood loss anemia: Plan: As above (3) Hypertension: Plan: -Continue lisinopril 10 mg daily (4) COVID-19: Plan: -Positive on 07/25, patient reports full recovery, negative COVID test on admission Plan: VTE prophylaxis - SCDs, no chemical prophylaxis in setting of acute GI bleed Code status - Full Code. Disposition - continue on med/surg pending colonoscopy results Admission and Anticipated Discharge Date Admission Date: August 13, 2021 Subjective Stools now clear with colonoscopy prep. Otherwise no abdominal pain, nausea, vomiting, shortness of breath, chest pain. Awaiting colonoscopy later today Review of Systems Review of Systems: All systems reviewed & are unremarkable except as noted in HPI & below Physical Exam Constitutional: WD/WN, vitals as above Eyes: + anicteric sclerae; normal pupil size Respiratory: normal respiratory effort, lungs clear to auscultation Cardiovascular: RRR, no murmur, no edema Gastrointestinal (Abdomen): Inspection/Auscultation: normal bowel sounds Percussion/Palpation: abdomen soft; abdomen nontender Skin: no rashes, warm and dry Neurologic: moves all extremities and awake; not confused Psychiatric: A+Ox3, euthymic affect Results & Data Results & Data ([facility]) Vital Signs (Past 12 Hours) Vital Signs Temp Pulse Resp BP Pulse Ox 08/16/21 14:46 36.5 C 63 14 156/84 H 100 08/16/21 07:35 36.4 C L 59 L 16 163/91 H 98 PG Care Time/CCT Total # of Minutes Spent Total Time Spent with Patient: Total time spent is greater than 50% in coordination of care (as documented) at patient's floor/unit and/or counseling patient: Coding Level of Care Code 88110 Subseq Hosp Care Lvl 1 Diagnoses GI bleed K92.2 GI bleed type/associated pathology: unspecified gastrointestinal hemorrhage type Acute blood loss anemia D62 Hypertension I10 COVID-19 U07.1 (1) GI bleed GI bleed type/associated pathology: unspecified gastrointestinal hemorrhage type Qualified Code(s): K92.2 - Gastrointestinal hemorrhage, unspecified
--- NOTE | 2021-08-16 15:50 | Anesthesiology Consultation ---
Date of Service August 16, 2021 Assessment & Plan (1) Encounter for pre-operative examination: Chart Review Chart Review: Acceptable Risk for Surgery History Surgery Operation Date: 08/16/21 17:15 Proposed Procedures p Colonoscopy Dr Tesfaye - Adilene Tesfaye MD Height/Weight Height: 5 ft 9 in Weight: 95 kg Allergies Allergy/AdvReac Type Severity Reaction Status Date / Time Penicillins Allergy Mild UNKNOWN Verified 08/13/21 11:16 REACTION Medications Home Medications Medication Instructions Recorded Confirmed Last Taken lisinopril 10 mg tablet 10 mg PO QAM 06/06/18 08/13/21 08/12/21 Active Medications Generic Name Dose Route Start Last Admin Trade Name Freq PRN Reason Stop Dose Admin Lisinopril 10 mg 08/14/21 09:00 08/16/21 09:17 Lisinopril 10 Mg Tab PO 09/13/21 08:59 10 mg QAM GERTRUDIS Administration Ondansetron HCl 4 mg 08/13/21 17:19 08/15/21 23:08 Ondansetron Inj 2 Mg/Ml 2 Ml Vial IV 09/12/21 17:18 4 mg Q6H PRN Administration Nausea Pantoprazole Sodium 40 mg 08/13/21 16:30 08/16/21 08:23 Pantoprazole 40 Mg Tab PO 09/12/21 16:29 40 mg DAILY GERTRUDIS Administration Past Medical History Medical History (Updated 08/16/21 @ 15:49 by Francisco J Ordonez MD) Acute blood loss anemia COVID-19 DJD (degenerative joint disease) Hypertension Obesity Vertigo Past Family History Family History Mother Family history of diabetes mellitus Past Surgical History Surgical History Hx of tonsillectomy Hx of total knee replacement RIGHT Social History Smoking Status: Former smoker tobacco type: cigarettes Do You Dip or Chew Tobacco: Yes Hx Alcohol Use: No Alcohol type: beer alcohol intake frequency: holidays/special occasions only Hx Substance Use: No Physical Exam Vital Signs Last Vital Signs Temp 36.5 C 08/16/21 14:46 Pulse 63 08/16/21 14:46 Resp 14 08/16/21 14:46 BP 156/84 H 08/16/21 14:46 Pulse Ox 100 08/16/21 14:46 Testing Laboratory Results 08/16/21 05:35 08/16/21 05:35 PT 11.3 Seconds (9.0-12.0) 08/13/21 11:34 INR 1.1 (0.9-1.1) 08/13/21 11:34 APTT 29.9 Seconds (21.0-31.0) 08/13/21 11:34 Blood Type A Positive 08/13/21 11:28 Antibody Screen NEGATIVE 08/13/21 11:28 Electrocardiogram Date: 08/13/21 Findings: + NSR @ (68), + RBBB and + VT (inferior)
[2021-08-16] MEDS ORDERED: PROPOFOL IV EMULSION 10 MG/ML 20 ML VIAL IV ONE ×3 (16:34→16:54)
[2021-08-16] MEDS ORDERED: LIDOCAINE 2% 2 ML VIAL/AMP(20MG/ML) INFIL ONE (16:34)
[2021-08-16] MEDS ORDERED: ENDOSCOPIC MARKER 5 ML SYR TOP ONE ×2 (16:35)
--- NOTE | 2021-08-16 17:10 | GI REPORT ---
Patient Name: Haresh Douglas Procedure Date: 08/16/2021 4:20 PM Date of : 1950 Admit Type: Inpatient Age: 70 Gender: Male Attending MD: Adilene Tesfaye MD Procedure: Colonoscopy Providers: Adilene Tesfaye MD Referring MD: Baljit Boateng, Arturo Escobar Md Indications: Rectal bleeding, Abnormal CT of the GI tract Medicines: Propofol per Anesthesia Complications: No immediate complications. Estimated Blood Loss: Estimated blood loss: none. Procedure: Pre-Anesthesia Assessment: - Prior to the procedure, a History and Physical was performed, and patient medications, allergies and sensitivities were reviewed. The patient's tolerance of previous anesthesia was reviewed. - The risks and benefits of the procedure and the sedation options and risks were discussed with the patient. All questions were answered and informed consent was obtained. - Patient identification and proposed procedure were verified prior to the procedure by the physician and the nurse. The procedure was verified in the procedure room. - Pre-procedure physical examination revealed no contraindications to sedation. After I obtained informed consent, the scope was passed under direct vision. Throughout the procedure, the patient's blood pressure, pulse, and oxygen saturations were monitored continuously. The Scope was introduced through the anus with the intention of advancing to the cecum. The scope was advanced to the splenic flexure before the procedure was aborted. Medications were given. The colonoscopy was performed without difficulty. The patient tolerated the procedure well. The quality of the bowel preparation was good. Findings: The perianal and digital rectal examinations were normal. A severe stenosis measuring more than 5 cm (in length) x 4 mm (inner diameter) was found at the splenic flexure and was non-traversed despite using XP scope and ultrathing colonoscope. Biopsies were taken with a cold forceps for histology. Verification of patient identification for the specimen was done by the physician and nurse using the patient's name and date. Area was tattooed with an injection of 2 mL of Spot (carbon black). Scattered small-mouthed diverticula were found in the sigmoid colon. Non-bleeding internal hemorrhoids were found during retroflexion. The hemorrhoids were small. 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 Biopsied. Tattooed. - Diverticulosis in the sigmoid colon. - Non-bleeding internal hemorrhoids. Recommendation: - Return patient to [facility] for ongoing care. - Await pathology results. - Clear liquid diet. Adilene Tesfaye MD 08/16/2021 5:09:49 PM This report has been signed electronically. Note Initiated On: 08/16/2021 4:20 PM Number of Addenda: 0 I attest to the content of the Intraoperative Record and orders documented therein, exceptions below {[id number]}
--- NOTE | 2021-08-16 17:35 | Anesthesiology Progress Note ---
Date of Service August 16, 2021 Anesthesia Post Procedure Vital Signs Vital Signs: Temp Pulse Resp BP Pulse Ox 08/16/21 17:27 51 L 20 155/74 H 96 08/16/21 17:11 46 L 18 127/75 96 08/16/21 16:56 51 L 16 105/70 97 08/16/21 16:04 36.7 C 58 L 18 194/90 H 97 08/16/21 14:46 36.5 C 63 14 156/84 H 100 08/16/21 07:35 36.4 C L 59 L 16 163/91 H 98 08/15/21 23:37 36.6 C 72 18 137/82 97 Transfer of Care Handoff Completed per policy Notes Mental Status: alert / awake / arousable Patient Amnestic to Procedure: Yes Nausea / Vomiting: adequately controlled Pain: adequately controlled Airway Patency, RR, SpO2: stable & adequate BP & HR: stable & adequate Hydration State: stable & adequate Anesthetic Complications: no major complications apparent
[2021-08-17 06:26] LABS: Hematocrit (blood only) 31.8 % (42-52); Hemoglobin 10.4 g/dL (14.0-18.0); Mean Corpuscular Hemoglobin 28.8 pg (25-34); Mean Corpuscular Hgb Conc 32.7 g/dL (32-36); Mean Corpuscular Volume 88.1 fL (80-100); Mean Platelet Volume 9.2 fL (7.4-10.4); Platelet Count 223 K/uL (130-400); RDW Coefficient of Variation 15.5 % (11.5-14.5); Red Blood Count 3.61 M/uL (4.7-6.1); White Blood Count 4.34 K/uL (4.8-10.8)
[2021-08-17 06:44] LABS: BUN Creatinine Ratio 8.1 (10-20); Calcium 8.4 mg/dl (8.5-10.1); Chol HDL Ratio 5.7 (0-5); Creatinine Clr Calc Pharmacy 61.7 ml/min; Est GFR (African American) 67.6 ml/min; Est GFR (Non-African American) 58.3 ml/min
[2021-08-17] MEDS: PANTOprazole 40 MG TAB PO SCH (08:20)
[2021-08-17] MEDS: lisinopril 10 MG TAB PO SCH (08:20)
--- NOTE | 2021-08-17 13:54 | Discharge Summary ---
Date of Service August 17, 2021 Admission HPI Per Admitting Provider Patient is 70-year-old male with past medical history of osteoarthritis, hypertension, and COVID-19 infection 3 weeks ago who presents today with acute episodes of rectal bleeding. Patient states he woke up this morning with crampy abdominal pain and felt like he had to move his bowels. When he did, he noticed formed stool with bright red blood in the toilet bowl. Had 2 more episodes of this at home before presenting to the ED. Since he has been here, his stools have become more liquid in consistency, continuing to have bloody bowel movements approximately 2 here. He notes notes approximately 1 week ago an ep isode nausea followed by emesis after eating spaghetti. He was without abdominal pain at this time and denies any blood in his vomit. No recent episodes of this and otherwise feels well, no fever/chills, night sweats, weight loss, dysphagia, fatigue, chest pain, palpitations, shortness of breath, abdominal pain, melena, hematemesis, syncope, dizziness, weakness. He is not on any blood thinners. Has a history of polyps that were removed on colonoscopy 5 years ago, denies knowledge of hemorrhoids. No personal or family history of esophageal, stomach, or colon cancer. Upon presentation to ED, patient is hemodynamically stable, vital signs within normal limits. Labs remarkable for Hgb 12.6, down from 14.5 on 07/26, BUN 25, glucose 111, stool occult positive, GI panel negative. All other labs within normal limits. CTAP showed moderate circumferential wall thickening of the splenic flexure of the colon with mild pericolonic infiltration. No intraluminal contrast to suggest active bleed. Patient was diagnosed with COVID-19 infection on 07/25 at [facility], presented to the [facility] ED on 07/26 and received monoclonal antibodies. He has since recovered from his COVID-19 infection. COVID negative today. Principal Diagnosis Acute GI Bleed Discharge Exam Constitutional: WD/WN, vitals as above Eyes: + anicteric sclerae; normal pupil size Respiratory: normal respiratory effort, lungs clear to auscultation Cardiovascular: RRR, no murmur, no edema Gastrointestinal (Abdomen): Inspection/Auscultation: normal bowel sounds Percussion/Palpation: abdomen soft; abdomen nontender Skin: no rashes, warm and dry Neurologic: moves all extremities and awake; not confused Psychiatric: A+Ox3, euthymic affect Discharge Data Allergies Allergy/AdvReac Type Severity Reaction Status Date / Time Penicillins Allergy Mild UNKNOWN Verified 08/16/21 16:03 REACTION Consultations 08/13/21 13:51 ED Decision to Admit Stat 08/13/21 17:19 Consult Gastroenterology Routine Procedures Performed Operation Date: 08/16/21 17:15 Actual Procedures p Colonoscopy Biopsy Cytology - Adilene Tesfaye MD Ordered Studies 08/13/21 11:16 CT abd pelvis IV con only Urgent Hospital Course (1) GI bleed: -Patient is currently hemodynamically stable. -Suspect this is LGI bleed, in the setting of 4-5 episodes of painless hematochezia on day of admission. Internal hemorrhoids vs polyps vs diverticular bleed, cannot rule out malignancy given age, however no ALARM symptoms reported. CT showed intraluminal wall thickening of the colon suggestive of nonspecific colitis. No intraluminal contrast to suggest active bleed. 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 Biopsied. Tattooed. - Diverticulosis in the sigmoid colon. - Non-bleeding internal hemorrhoids. Awaiting pathology. Dr. Tesfaye will contact patient regarding pathology. He recommended a soft diet. This was explained to the patient and his . Hemoglobin has been stable. (2) Acute blood loss anemia: As above (3) Hypertension: -Continue lisinopril 10 mg daily (4) COVID-19: -Positive on 07/25, patient reports full recovery, negative COVID test on admission VTE prophylaxis - SCDs, no chemical prophylaxis in setting of acute GI bleed Code status - Full Code. Disposition - continue on med/surg pending colonoscopy results Total Time Total Time Spent Total Time Spent (In Minutes): 32 Discharge Plan Discharge Items Patient Disposition: Home - Self-Care Reason For Visit: RECTAL BLEEDING Discharge Diagnosis: GI bleed Activity: Resume your previous activity Non-emergency contact: Primary Care Provider Call non-emergency contact if: you have any medication questions Follow-up/Referrals: Baljit Boateng [Primary Care Provider] - ('s office will call you with a follow up appointment) Diet: Low Fiber Diet Texture: Dental soft (bite-sized) Addtl Attending Provider Instructions: You had a colonoscopy completed by Dr. Adilene Tesfaye You were found to have severe stricture at the splenic flexure. This area was biopsied. He recommended for the next few days to continue with a soft diet. A low fiber diet will also help in the short term to to help food to pass your digestive tract. Nehemiah Tesfaye anticipates that the biopsied tissue should come back within the next 2-3 days. He will give you a call with the results and will inform you of any other recommendations at that time. Pending Studies at Discharge: No Stand-Alone Forms: My [facility], Smoking Cessation Medications and DC Order Prescriptions: New polyethylene glycol 3350 [Miralax] 17 gram Powder In Packet 17 g PO DAILY PRN (Reason: constipation) Qty: 30 RF: 0 Continued lisinopril 10 mg Tablet 10 mg PO QAM RF: 0 Discharge Orders: Discharge Order (Routine); Ordered 08/17/21 Ordered By: Garland Rai Admission Data Admit Date/Time: 08/13/21 15:03 Attending Provider: Garland Rai Admit Provider: Don Hollis Primary Care Provider: Baljit Boateng Other Providers: Adilene Tesfaye ; Chay June Other Interventions: Discharge Summary Assessment (RN) Last Done: 08/17/21 14:57 Coding Level of Care Code D/C DAY MANAGEMENT >30 MINS Diagnoses GI bleed K92.2 GI bleed type/associated pathology: unspecified gastrointestinal hemorrhage type Acute blood loss anemia D62 Hypertension I10 COVID-19 U07.1
--- NOTE | 2021-08-24 07:03 | Coding Query ---
PATHOLOGY To promote full compliance with coding requirements relating to patient care, physician participation is requested in all cases of laboratory apparatus glass blower uncertainty. Please assist us with the question(s) below: Please review the Pathology report and please document any relevant diagnosis(es) below: Diagnosis(es): Colon adenocarcinoma Thank you Katy PADILLA
== END 2021-08-17 16:17 | disposition home or self-care (01) | DRG 374 ==
LOC: ED 10:10 → 2S 15:03 → SUATTDRO 15:03 → 2S 17:13 → 3E 08-15 14:27

== ENCOUNTER 2024-10-01 21:12 | Inpatient (IN) ==
[2024-10-01 21:44] LABS: Basophils # (auto) 0.07 K/uL (0.00-0.20); Basophils % (auto) 0.6 %; Eosinophils # (auto) 0.15 K/uL (0.00-0.50); Eosinophils % (auto) 1.3 %; Hematocrit (blood only) 31.9 % (42.0-52.0); Hemoglobin 10.5 g/dl (14.0-18.0); Immature Granulocytes # (auto) 0.04 K/uL (0.01-0.20); Immature Granulocytes % (auto) 0.4 %; Lymphocytes # (auto) 2.66 K/uL (1.20-3.40); Lymphocytes % (auto) 23.8 %; Mean Corpuscular Hemoglobin 29.6 pg (25.0-34.0); Mean Corpuscular Hgb Conc 32.9 g/dL (32.0-36.0); Mean Corpuscular Volume 89.9 fL (80.0-100.0); Mean Platelet Volume 10.7 fL (9.4-12.4); Monocytes # (auto) 1.32 K/uL (0.11-0.59); Monocytes % (auto) 11.8 %; Neutrophils # (auto) 6.94 K/uL (1.40-6.50); Neutrophils % (auto) 62.1 %; Platelet Count 516 K/uL (130-400); RDW Coefficient of Variation 16.2 % (11.5-14.5); RDW Standard Deviation 53.3 fL (36.4-46.3); Red Blood Count 3.55 M/uL (4.70-6.10); White Blood Count 11.18 K/ul (4.8-10.8)
[2024-10-01] MEDS: SODIUM CHLORIDE 0.9% 1,000 ML IV ONE (21:49)
[2024-10-01] MEDS ORDERED: SODIUM CHLORIDE 0.9% 100 ML IV PRN ×2 (21:49→23:24)
[2024-10-01 21:53] LABS: iSTAT Creatinine 1.3 mg/dl (0.6-1.3); iSTAT Hemoglobin 11.2 g/dl (14.0-18.0); iSTAT Ionized Calcium 1.13 mmol/l (1.12-1.32); iSTAT Potassium 3.9 mmol/L (3.3-5.0)
[2024-10-01] MEDS: OPTIRAY 320 100ml IV ONE (21:57)
[2024-10-01 21:59] LABS: Albumin Globulin Ratio 1.6 (0.9-2); Albumin Level 3.9 gm/dl (3.4-5.0); BUN Creatinine Ratio 18.3 (10-20); Bilirubin,Total 0.6 mg/dl (0.2-1.0); Creatinine Clr Calc Pharmacy 51.5 ml/min; Globulin 2.4 gm/dl (2.5-4.0); Potassium 4.1 mmol/L (3.5-5.1); Total Protein 6.3 gm/dl (6.0-8.3)
[2024-10-01 22:07] LABS: Troponin I High Sensitivity 7.6 pg/ml (0-20)
[2024-10-01 22:16] LABS: INR 1.1 (0.9-1.1); Partial Thromboplastin Ratio 1.1; Partial Thromboplastin Time 29 Seconds (21-31); Prothrombin Time 11.5 Seconds (9.0-12.0)
--- NOTE | 2024-10-01 22:37 | Gastrointestinal Consultation ---
Date of Consultation October 01, 2024 Assessment & Plan (1) GI bleed: 74-year-old with history of splenic flexure signet cell positive adenocarcinoma who s/p resection at [facility] with a partial left hemicolectomy, splenectomy and a audrey-pancreatectomy who then opted for herbal therapy and presents now with hematochezia and GI bleeding with acute blood loss. He is at a 5 g drop in his hemoglobin and appears to have active bleeding. I evaluated the CT and I do not see an obvious source lighting up on the CT. He does have diffuse intrahepatic metastasis with colon cancer present. I suspect his bleeding is from diverticulosis in his left colon. He has been on some herbal therapy with number oh kinase which is a plasmin inhibitor and a fiber inhibitor. He does not take any other anticoagulants per 's report. At this point I would treat him with FFP to see if we can reverse him if he does not get better he will need to get transferred to [facility] or [facility] given need for more advanced therapy including IR guided embolization. History of Present Illness Reason for Consultation: hematochezia and rectal bleeding. 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 Episodes of hematochezia and rectal bleeding. Patient was diagnosed with a sigmoid stricture/signet cell adenocarcinoma in 2021 when he presented with rectal bleeding and abdominal pain. Dr. Rocha's colonoscopy which showed a sigmoid stricture biopsies were positive for signet cell positive adenocarcinoma. Patient underwent a surgical resection at [facility] which included a splenectomy partial pancreatic resection and a left hemicolectomy. He opted for alternative medicine therapy afterwards and did not receive chemotherapy. He reports that he presents with persistent rectal bleeding that started over 24 hours ago. He now presents with a 5 g hemoglobin drop from baseline 14 to 15- 10.4. Patient has active bleeding while here with clots and blood. I saw him with this. He has been on some outpatient herbal medications including lumbarokinase which is a fibrin inhibitor and it prevents clot formation. I suspect based on his colonoscopy in past where he had diffuse sigmoid and descending diverticulosis that it is bleeding from diverticulosis. CT here shows diffuse intrahepatic metastasis of colon cancer. No ductal dilation. NO Obvious bleeding source noted in the colon. Allergies Allergy/AdvReac Type Severity Reaction Status Date / Time Penicillins Allergy Unknown HAPPENED Verified 10/01/24 23:24 A SMALL CHILD Home Medications Medication Instructions Recorded Confirmed Type lisinopril 10 mg tablet 10 mg PO QAM 06/06/18 10/01/24 History [place] 1 tab PO DAILY 10/01/24 10/01/24 History Mistletoe Extract 1 dose INJ 3XWK 10/01/24 10/01/24 History Patient History Family History Mother Family history of diabetes mellitus Social History Smoking Status: Former smoker Tobacco Type: Cigarettes Second Hand Exposure: No; Do You Dip or Chew Tobacco: Yes; Hx Alcohol Use: No Hx Substance Use: No Preferred Language: Prydeinig Communication Ability: Effective Food Service Director Required: No Beliefs That Will Affect Care: None marital status: Current Living Situation: Spouse Feels Safe at Home: Yes Assistive Devices: Hearing Aid - Left Review of Systems Review of Systems: All systems reviewed & are unremarkable except as noted in HPI & below Physical Exam Physical Exam: Physical Exam: General: Well nourished and well developed in NAD HEENT: EOMI, PERRL Neck: trachea midline, no lad Lungs: CTA b, bilateral bs present Heart: RRR, no M and no edema Abd: soft, NT/ND, NABS Musculoskeletal: no c/c/e, normal strength B Neuro: CN2-12 intact, normal gait, normal strength Psych: normal affect and mood, euthymic. Results & Data Vital Signs (Past 12 Hours) Vital Signs Temp Pulse Pulse Resp BP BP Pulse Ox 10/01/24 21:44 61 18 151/88 H 98 10/01/24 21:41 68 10/01/24 21:19 60 17 97 10/01/24 21:17 36.8 C 75 17 156/90 H 98 O2 Del Method 10/01/24 21:44 Room Air 10/01/24 21:41 10/01/24 21:19 Room Air 10/01/24 21:17 Room Air PG Care Time/CCT Total # of Minutes Spent Total Time Spent with Patient: Total time spent is greater than 50% in coordination of care (as documented) at patient's floor/unit and/or counseling patient: Coding Level of Care Code 75493 IN/OBS CONSULT LVL 4,60M Diagnoses GI bleed K92.2 GI bleed type/associated pathology: unspecified gastrointestinal hemorrhage type (1) GI bleed GI bleed type/associated pathology: unspecified gastrointestinal hemorrhage type Qualified Code(s): K92.2 - Gastrointestinal hemorrhage, unspecified
--- NOTE | 2024-10-01 22:57 | Emergency Department Note ---
Impression & Plan Rectal bleeding, Anemia, History of colon cancer, H/O splenectomy ED Provider Note NAME: NABILA MACHUCA AGE: 74 SEX: M : 1950 ARRIVES VIA: Walk-In INFORMANT: [Patient][] ED PROVIDER(S): [Tony Hensley MD] CHIEF COMPLAINT: Rectal bleed HISTORY OF PRESENT ILLNESS: The patient is a 74-year-old male with a history of previous rectal bleeding as a result of a colonic malignancy. He has undergone surgery. The patient states that several hours ago, he noticed blood in his stool. He has had 5 episodes of venous blood rectally. No real stool with his bowel movements. He has not been dizzy or lightheaded. He has no abdominal pain. No chest pain or dyspnea. He is not on any prescribed blood thinning agents. The patient presents for evaluation. PMHx/PSHx/Social Hx: See Below PHYSICAL EXAM: GENERAL: Patient is in no acute distress. HEENT: No acute trauma, normocephalic atraumatic, mucous membranes moist, no nasal congestion. NECK: No stridor, no adenopathy, no meningismus, trachea is midline. LUNGS: Clear to auscultation bilaterally, no wheeze, no rhonchi, breath sounds equal. HEART: Without murmurs gallops or rubs, regular rate and rhythm. ABDOMEN: Soft, nontender, no peritonitis. EXTREMITIES: No cyanosis, full range of motion of all the joints without pain or difficulty. NEUROLOGIC: Oriented x 3, no acute motor or sensory deficits, no focal weakness. SKIN: No jaundice, no diaphoresis. Rectal: Venous appearing blood noted. Heme positive. DIFFERENTIAL DIAGNOSIS: Lower GI bleeding, diverticular bleeding, anastomotic bleeding, anemia, among others. EMERGENCY DEPARTMENT PROCEDURES: MEDICAL DECISION MAKING: There is a mild leukocytosis, this could be consistent with infection or the stress of his current situation. The patient is anemic with a hemoglobin of 10.5. This is about a 5 point drop from last month. Platelet count was actually a bit high at 516. No coagulopathy. No renal failure or significant electrolyte abnormality. No concerning liver enzyme elevation. ECG showed a normal sinus rhythm, no ischemia. Cardiac enzyme testing x 1 was not consistent with acute cardiac injury. Abdominal and pelvis CT showed multiple findings, some old, some new but no active source of GI bleeding. On exam, the patient was initially without complaints but, was having bouts of venous appearing blood rectally. Patient was given a 500 cc saline bolus. Patient received IV Zofran for nausea that was developed during his stay. I did consult GI. The patient was seen by GI here in the department. The patient began feeling nauseated and had more rectal bleeding. His blood pressure dropped some and he was pale in appearance. The patient was ordered for 2 units of packed red blood cells to be transfused. His a blood consent was filled out and signed by the primary admitting team. The patient is clearly in need of a hospital stay. He has active ongoing GI bleeding and is going to require close monitoring and observation. He may require more than just 2 units of packed red blood cells. I did speak with the patient and family, I spoke with case management, the on- call hospitalist was consulted. In short, at this point, the source of the GI bleeding is unclear but clearly, this appears to be a lower GI bleed. Prior/Outside records/notes reviewed: None ECG per my interpretation: Indication was GI bleeding. The ECG shows a normal sinus rhythm with a rate of 63. There is no acute ST elevation, no PVCs. The QTc is 440. Continuous Cardiac Monitoring per my interpretation: An order was placed for continuous cardiac monitoring. The monitor shows a rate of 61 with normal sinus rhythm. Imaging/x-ray results per my interpretation: Chronic Medical/Social conditions affecting care: Advanced age, history of previous GI bleeding and colon cancer. Care/Management discussed with: On-call GI-Dr. Painter. Case management and the on-call hospitalist. Level of care consideration(s): After review of the information above and other included data: --I believe the patient requires escalation of care to admission Critical Care Note: I have personally spent 56 minutes of critical care time in the direct management of this patient. This includes bedside care, interpretation of diagnostic studies, and testing, discussion with consultants, patient, and family members, and other required patient management activities. This 56 minutes is in excess of all separately billable procedures. DISPOSITION: Admission Past Med/Surg History Problem List Symptomatic hypotension Adenocarcinoma Acute lower GI bleeding Vertigo (Acute) Acute blood loss anemia Abnormal CT of the abdomen Anemia (Acute) COVID-19 (Acute) Hematochezia (Acute) GI bleed (Acute) Hypertension (Chronic) Chronic knee pain (Chronic) Medication reaction (Acute) Osteoarthritis of right knee (Acute) Synovial cyst of popliteal space [Barker], right knee (Acute) Encounter for pre-operative examination Rotator cuff arthropathy of right shoulder Hx of total knee replacement RIGHT Hypertension Hx of tonsillectomy DJD (degenerative joint disease) Obesity Family History Mother Family history of diabetes mellitus Social History Smoking Status: Former smoker Tobacco Type: Cigarettes Second Hand Exposure: No; Do You Dip or Chew Tobacco: Yes; Hx Alcohol Use: No Hx Substance Use: No Preferred Language: Ethiopian Communication Ability: Effective Safety Physician Required: No Beliefs That Will Affect Care: None marital status: Current Living Situation: Spouse Feels Safe at Home: Yes Assistive Devices: Hearing Aid - Left Allergies Allergies Allergy/AdvReac Type Severity Reaction Status Date / Time Penicillins Allergy Unknown HAPPENED Verified 10/01/24 23:24 A SMALL CHILD Home Meds Home Medications Medication Instructions Recorded Confirmed lisinopril 10 mg tablet 10 mg PO QAM 06/06/18 10/01/24 [place] 1 tab PO DAILY 10/01/24 10/01/24 Mistletoe Extract 1 dose INJ 3XWK 10/01/24 10/01/24 Results & Data (ED) Vital Signs Vital Signs - 24 hr 10/01/24 21:17 10/01/24 21:19 10/01/24 21:41 Temperature 36.8 C Temperature Source Temporal Artery Scan Pulse Rate 75 60 68 Pulse Rate [Apical] Pulse Rhythm Regular Pulse Rhythm [Apical] Pulse Strength Normal Respiratory Rate 17 17 Respiratory Effort / Characteristics Non-Labored Spontaneous Respiratory Depth Normal Respiratory Pattern Regular Blood Pressure 156/90 H Blood Pressure [Right Arm] Blood Pressure Mean 112 Blood Pressure Mean [Right Arm] Blood Pressure Position Sitting Pulse Oximetry 98 97 Oxygen Delivery Method Room Air Room Air Sepsis Recent Fever Within 48 Hours No Sepsis New/Unexplained Change in Mental Status N/A Sepsis Action Taken by Nursing No Action Required 10/01/24 21:44 10/01/24 23:13 10/01/24 23:20 Temperature Temperature Source Pulse Rate Pulse Rate [Apical] 61 66 75 Pulse Rhythm Pulse Rhythm [Apical] Regular Regular Regular Pulse Strength Respiratory Rate 18 17 22 Respiratory Effort / Characteristics Non-Labored Spontaneous Non-Labored Spontaneous Non-Labored Spontaneous Respiratory Depth Normal Normal Normal Respiratory Pattern Regular Regular Regular Blood Pressure Blood Pressure [Right Arm] 151/88 H 124/76 75/49 L Blood Pressure Mean Blood Pressure Mean [Right Arm] 109 92 57 Blood Pressure Position Pulse Oximetry 98 99 100 Oxygen Delivery Method Room Air Room Air Room Air Sepsis Recent Fever Within 48 Hours Sepsis New/Unexplained Change in Mental Status Sepsis Action Taken by Nursing 10/01/24 23:50 10/02/24 00:00 10/02/24 00:05 Temperature 36.4 C L 36.6 C Temperature Source Oral Oral Pulse Rate 58 L 60 Pulse Rate [Apical] 59 L Pulse Rhythm Pulse Rhythm [Apical] Regular Pulse Strength Respiratory Rate 16 20 19 Respiratory Effort / Characteristics Non-Labored Spontaneous Respiratory Depth Normal Respiratory Pattern Regular Blood Pressure 162/81 H 136/76 Blood Pressure [Right Arm] 141/76 H Blood Pressure Mean 108 96 Blood Pressure Mean [Right Arm] 97 Blood Pressure Position Pulse Oximetry 96 94 97 Oxygen Delivery Method Room Air Sepsis Recent Fever Within 48 Hours Sepsis New/Unexplained Change in Mental Status Sepsis Action Taken by Retirement Medications Current Medication List: was personally reviewed by me Laboratory Data Attestation: I reviewed the patient's lab results. 10/01/24 21:31 10/01/24 21:31 Lab Results 10/01/24 10/01/24 Range/Units 21:31 21:41 WBC 11.18 H (4.8-10.8) K/ul RBC 3.55 L (4.70-6.10) M/uL Hgb 10.5 L (14.0-18.0) g/dl POC Hgb 11.2 L (14.0-18.0) g/dl Hct 31.9 L (42.0-52.0) % POC Hct 33 L (42-52) % MCV 89.9 (80.0-100.0) fL MCH 29.6 (25.0-34.0) pg MCHC 32.9 (32.0-36.0) g/dL RDW Std Deviation 53.3 H (36.4-46.3) fL RDW Coeff of Karla 16.2 H (11.5-14.5) % Plt Count 516 H (130-400) K/uL MPV 10.7 (9.4-12.4) fL Immature Gran % (Auto) 0.4 % Neut % (Auto) 62.1 % Lymph % (Auto) 23.8 % [place] % (Auto) 11.8 % Eos % (Auto) 1.3 % Baso % (Auto) 0.6 % Neut # (Auto) 6.94 H (1.40-6.50) K/uL Lymph # (Auto) 2.66 (1.20-3.40) K/uL [place] # (Auto) 1.32 H (0.11-0.59) K/uL Eos # (Auto) 0.15 (0.00-0.50) K/uL Baso # (Auto) 0.07 (0.00-0.20) K/uL Immature Gran # (Auto) 0.04 (0.01-0.20) K/uL PT 11.5 (9.0-12.0) Seconds INR 1.1 (0.9-1.1) APTT 29 (21-31) Seconds PTT Ratio 1.1 POC Sodium 139 (135-144) mmol/L Sodium 140 (136-145) mmol/L POC Potassium 3.9 (3.3-5.0) mmol/L Potassium 4.1 (3.5-5.1) mmol/L POC Chloride 101 (101-112) mmol/L Chloride 104 (98-107) mmol/L Carbon Dioxide 31 (21-32) mmol/L POC Total CO2 25 (24-31) mmol/L Anion Gap 5 (3-11) POC Anion Gap 18.0 (16-25) mmol/L POC BUN 23 H (7-18) mg/dl BUN 22 (6-23) mg/dl Creatinine 1.20 (0.6-1.4) mg/dl POC Creatinine 1.3 (0.6-1.3) mg/dl Est Cr Clr Drug Dosing 51.5 ml/min eGFR 62.67 BUN/Creatinine Ratio 18.3 (10-20) Glucose 126 H (70-99(Fasting)) mg/dl POC Glucose (other) 128 H (70-99) mg/dl Calcium 9.0 (8.6-10.3) mg/dl POC Ioniz Calcium Peggy 1.13 (1.12-1.32) mmol/l Total Bilirubin 0.6 (0.2-1.0) mg/dl AST 18 (13-39) U/L ALT 12 (7-52) U/L Alkaline Phosphatase 79 (34-104) U/L Troponin I High Sens 7.6 (0-20) pg/ml Total Protein 6.3 (6.0-8.3) gm/dl Albumin 3.9 (3.4-5.0) gm/dl Globulin 2.4 L (2.5-4.0) gm/dl Albumin/Globulin Ratio 1.6 (0.9-2) Blood Type A Positive Antibody Screen NEGATIVE Crossmatch See Detail Administered Medications Discontinued Medications Sodium Chloride (Nss) 1,000 mls @ 999 mls/hr IV .Q1H1M ONE Stop: 10/01/24 22:37 Last Infusion: 10/01/24 22:50 Dose: Infused Documented By: Admin: 10/01/24 21:49 Dose: 999 mls/hr Documented By: DENISA Sodium Chloride (Nss) 500 mls @ 999 mls/hr IV .Q31M ONE Stop: 10/01/24 23:53 Last Infusion: 10/01/24 23:45 Dose: Infused Documented By: Admin: 10/01/24 23:23 Dose: 999 mls/hr Documented By: MISBAH Ioversol (Optiray 320 100ml) 90 ml IV ONCE ONE Stop: 10/01/24 21:58 Last Admin: 10/01/24 21:57 Dose: 90 ml Documented By: MESHA Ondansetron HCl (Ondansetron Inj 2 Mg/Ml 2 Ml Vial) Confirm Administered Dose 4 mg .ROUTE .STK-MED ONE Stop: 10/01/24 23:24 Last Admin: 10/01/24 23:45 Dose: Not Given Documented By: MISBAH Ondansetron HCl (Ondansetron Inj 2 Mg/Ml 2 Ml Vial) 4 mg IV NOW STA Stop: 10/01/24 23:24 Last Admin: 10/01/24 23:23 Dose: 4 mg Documented By: MISBAH Imaging Data Radiologist's Impression: Abdomen/Pelvis CT 10/01/24 21:37 Exam(s): CT ABDOMEN + PELVIS With Contrast IV Amt: 90 ml optiray 320 EXAM: CT Abdomen and Pelvis With Intravenous Contrast CLINICAL HISTORY: rectal bleeding. TECHNIQUE: Axial computed tomography images of the abdomen and pelvis with intravenous contrast. CTDI is 19.45 mGy and DLP is 1007.49 mGy-cm. Automated exposure control was utilized for the study. A dose lowering technique was utilized adhering to the principles of ALARA. CONTRAST: Patient received 90 ml optiray 320 of IV contrast COMPARISON: 08/13/2021. FINDINGS: Lung bases: Coronary artery calcifications. No mass. No consolidation. ABDOMEN: Liver: Interval development of multiple solid masses throughout the liver, largest in the right lobe 3.8 x 4.1 cm. Gallbladder and bile ducts: Unremarkable. No calcified stones. No ductal dilation. Pancreas: Unremarkable. No mass. No ductal dilation. Spleen: Interval splenectomy. Adrenals: Unremarkable. No mass. Kidneys and ureters: Moderate bilateral hydronephrosis with severe bilateral hydroureter. No obstructing calculus. No renal or ureteral calcifications. Multiple bilateral renal cortical cysts. Multiple intermediate density bilateral renal masses versus complex cyst measuring up to 3.2 cm in the midpole of the left kidney. Stomach and bowel: Interval midline abdominal pelvic incision scar with interval development of a wide-mouth nonobstructing small bowel containing hernia. No obstruction or ileus. Status post left colon resection with anastomotic sutures at the splenic flexure. Mid transverse colon wall thickening to the splenic flexure. Collapsed left and proximal sigmoid colon with mild wall thickening. Distal left and sigmoid colon wall thickening. Distal rectal wall thickening. Multiple small enhancing vessels adjacent to the rectum, possibly varicosities. No evidence for diverticulitis. PELVIS: Appendix: No findings to suggest acute appendicitis. Bladder: Partially contracted with diffuse wall thickening. No mass. Reproductive: Enlarged heterogeneous prostate gland 5.9 x 4.8 cm. ABDOMEN and PELVIS: Intraperitoneal space: No free air. Small amount of pelvic free fluid. Bones/joints: No acute fracture. Degenerative changes of the spine. Soft tissues: Unremarkable. Vasculature: Atherosclerotic vascular calcifications. No abdominal aortic aneurysm. Lymph nodes: Unremarkable. No enlarged lymph nodes. IMPRESSION: Interval resection the splenic flexure site of previously demonstrated thickening. Interval splenectomy. Wall thickening of the mid to distal transverse colon to the anastomotic sutures with collapse of the colon distally. Mild wall left and sigmoid colon wall thickening. Considerations include nonspecific colitis versus recurrent or residual neoplasm. Ventral abdominal pelvic incision scar with associated nonobstructing bowel containing hernia. Distal rectal wall thickening. Multiple small enhancing vessels adjacent to the rectum, possibly varicosities. Small amount of ascites. Interval development of numerous liver masses, most suspicious for metastatic disease. Redemonstrated multiple simple and complex cyst versus solid masses, similar to the prior study. Recommend correlation to prior images to determine stability. Interval development of severe bilateral hydronephrosis and diffuse hydroureter without obstructing calculus. Partially contracted urinary bladder with diffuse wall thickening, possibly related to enlarged prostate gland. Otherwise no change. Electronically signed by: Minor Smith M.D. 10/02/24 00:24 AM Discharge Plan Visit Data Chief Complaint: Rectal Bleed Stated Complaint: RECTAL BLEED ED Provider: Tony Hensley Discharge Problem: Rectal bleeding, Anemia, History of colon cancer, H/O splenectomy Patient Disposition: Admitted As Inpatient Condition: Serious Forms Stand Alone Forms: [employer] Prescriptions Prescriptions: No Action lisinopril 10 mg Tablet 10 mg PO QAM [place] 1 tab PO DAILY Rx Instructions: UNKNOWN STRENGTH, UNABLE TO VERIFY. [place] Extract 1 dose INJ 3XWK Rx Instructions: DOSE AND STRENGTH UNKNOWN, UNABLE TO VERIFY. Referrals Referrals: Baljit Boateng [Primary Care Provider] - Discharge Problem: Anemia Qualifiers: Anemia type: unspecified type Qualified Code(s): D64.9 - Anemia, unspecified
[2024-10-01] MEDS: ONDANSETRON INJ 2 MG/ML 2 ML VIAL IV STA (23:23)
[2024-10-01] MEDS: SODIUM CHLORIDE 0.9% 500 ML IV ONE (23:23)
--- NOTE | 2024-10-01 23:36 | History & Physical Report ---
Date of Service October 01, 2024 Assessment & Plan (1) Acute lower GI bleeding: (2) Adenocarcinoma: (3) Symptomatic hypotension: Plan Patient is a 74-year-old male with past medical history of hypertension, OA, and colon cancer presented due to significant rectal bleeding that began at 6 PM. 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 He is now s/p partial left hemicolectomy, splenectomy, and Julio Cesar pancreatectomy resection at [facility] who has since opted for homeopathic treatment rather than chemoradiation. He is on Boluoke, mistletoe, and vitamin C. Patient had approximately a 5 point drop in his hemoglobin after several episodes of diffuse rectal bleeding along with associated symptomatic hypotension. Blood pressure has improved after IV fluids and patient has 2 units PRBC ordered and currently transfusing this unit. Will trial FFP to reduce the bleeding given patient is on fibrinolytic supplement, and feels tired reduce bleeding, patient will need transfer to tertiary care center for IR guided embolization. #lower GI bleed/Hx adenocarcinoma - Suspected TIC. Hgb dropped from 15.3 to 10.5, PLT stable, coag panel WNL. Patient is on Boluoke which is a fibrinolytic supplement. APCT shows concern for nonspecific colitis vs residual neoplasm and liver masses and small amount of ascites, otherwise postsurgical changes. Patient was initially unstable with symptomatic hypotension, reported 77/48. Hypotension resolved after IVF in ED. - Hemoccult pending however diffuse bright red blood in stool - 2 units PRBC ordered and transfusing; blood consents signed at bedside - Check H&H in between units and every 4 hours - 1U FFP ordered - if patient does not improve will need transferred to tertiary care center for IR guided embolization - Bowel rest, n.p.o., hold p.o. medications #HTN hypotensive on arrival - Holding lisinopril with hypotension and bowel rest VTE ppx: SCDs, defer chemical PPx with active bleeding Dispo: PCU versus transfer Admission and Anticipated Discharge Date Admission Date: 10/02/24 History of Present Illness Chief Complaint: rectal bleed Primary Care Provider: Baljit Boateng Patient is a 74-year-old male with past medical history of hypertension, OA, and colon cancer presented due to significant rectal bleeding that began at 6 PM. 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 He is now s/p partial left hemicolectomy, splenectomy, and Julio Cesar pancreatectomy resection at [facility] who has since opted for homeopathic treatment rather than chemoradiation. He is on Bolu[place], mistletoe, and vitamin C. Patient had approximately a 5 point drop in his hemoglobin after several episodes of diffuse rectal bleeding along with associated symptomatic hypotension. Blood pressure has improved after IV fluids and patient has 2 units PRBC ordered and currently transfusing this unit. Will trial FFP to reduce the bleeding given patient is on fibrinolytic supplement, and feels tired reduce bleeding, patient will need transfer to tertiary care center for IR guided embolization. Patient seen at bedside with his present. He stated approximately 6 PM the rectal bleeding started. In the ED he had an episode of symptomatic hypotension which he developed dizziness, weakness, and nausea; this is since resolved and p ressures have improved to 136/76 after IV fluids. He denies any abdominal pain, nausea, vomiting, current lightheadedness or dizziness. After surgical procedure noted above, patient has opted for homeopathic treatment with supplements first chemo and radiation. He follows with [facility] and a functional medicine provider in [place]. Patient stated that he has been following with functional medicine provider receiving the supplements to treat his cancer, recent PET scan did show a liver metastasis which patient believed was okay. Patient is agreeable with above. He denies any nicotine or alcohol use. He took his home medications this morning. He wishes to be full code. Blood consent form signed at bedside. Allergies Allergy/AdvReac Type Severity Reaction Status Date / Time Penicillins Allergy Unknown HAPPENED Verified 10/01/24 23:24 A SMALL CHILD Home Medications Medication Instructions Recorded Confirmed Type lisinopril 10 mg tablet 10 mg PO QAM 06/06/18 10/01/24 History Boluoke 1 tab PO DAILY 10/01/24 10/01/24 History Mistletoe Extract 1 dose INJ [id number] 10/01/24 10/01/24 History Past Med/Surg History Problem List (Updated 10/02/24 @ 00:35 by Aleah Boyd PA-C) Symptomatic hypotension Adenocarcinoma Acute lower GI bleeding Vertigo (Acute) Acute blood loss anemia Abnormal CT of the abdomen Anemia (Acute) COVID-19 (Acute) Hematochezia (Acute) GI bleed (Acute) Hypertension (Chronic) Chronic knee pain (Chronic) Medication reaction (Acute) Osteoarthritis of right knee (Acute) Synovial cyst of popliteal space [Barker], right knee (Acute) Encounter for pre-operative examination Rotator cuff arthropathy of right shoulder Hx of total knee replacement RIGHT Hypertension Hx of tonsillectomy DJD (degenerative joint disease) Obesity Family History Mother Family history of diabetes mellitus Social History Smoking Status: Former smoker Tobacco Type: Cigarettes Second Hand Exposure: No; Do You Dip or Chew Tobacco: Yes; Hx Alcohol Use: No Hx Substance Use: No Preferred Language: Israeli Communication Ability: Effective Loss Mitigation Specialist Required: No Beliefs That Will Affect Care: None marital status: Current Living Situation: Spouse Feels Safe at Home: Yes Assistive Devices: Hearing Aid - Left Review of Systems Review of Systems: see HPI Physical Exam Physical Exam: The patient is awake, alert and oriented 3, pale. HEENT- EOMI, mucous membranes dry. Hearing grossly intact. Heart-normal S1 and S2. No murmurs, rubs or gallops. Lungs-clear bilaterally, no respiratory distress, no accessory muscle use. Abdomen-normal bowel sounds and soft. No ascites noted. Non-tender. Extremities- no clubbing, cyanosis, or edema. Rheumatologic-normal range of motion. Psychiatric-anxious affect. Results & Data Results & Data Vital Signs (Past 12 Hours) Vital Signs Temp Pulse Pulse Resp BP BP Pulse Ox 10/01/24 23:13 66 17 124/76 99 10/01/24 21:44 61 18 151/88 H 98 10/01/24 21:41 68 10/01/24 21:19 60 17 97 10/01/24 21:17 36.8 C 75 17 156/90 H 98 O2 Del Method 10/01/24 23:13 Room Air 10/01/24 21:44 Room Air 10/01/24 21:41 10/01/24 21:19 Room Air 10/01/24 21:17 Room Air Laboratory Results reviewed CBC, CMP, PT/INR, type and screen, occult stool Diagnostic Findings reviewed AP CT Medications Administered ED1.5 mL NSS bolus, Zofran 4 Mg IV, 2 units PRBC ordered AdmissionFFP 1 unit ordered ECG Additional Comments: NSR, RBBB B Rate 63 QTc 440 Code Status & VTE Plan Code Status full code VTE Prophylaxis Plan VTE Prophylaxis will be ordered: Yes PG Care Time/CCT Total # of Minutes Spent Total Time Spent with Patient: Total time spent is greater than 50% in coordination of care (as documented) at patient's floor/unit and/or counseling patient: Coding Level of Care Code 33525 INT INP/OBS CARE 3/75MIN Diagnoses Acute lower GI bleeding K92.2 Adenocarcinoma C80.1 Symptomatic hypotension I95.9
[2024-10-01] MEDS: ONDANSETRON INJ 2 MG/ML 2 ML VIAL ONE (23:45)
[2024-10-02] MEDS ORDERED: SODIUM CHLORIDE 0.9% 100 ML IV PRN (00:02)
--- NOTE | 2024-10-02 00:25 | CT Scan Report ---
Exam(s): CT ABDOMEN + PELVIS With Contrast IV Amt: 90 ml optiray 320 EXAM: CT Abdomen and Pelvis With Intravenous Contrast CLINICAL HISTORY: rectal bleeding. TECHNIQUE: Axial computed tomography images of the abdomen and pelvis with intravenous contrast. CTDI is 19.45 mGy and DLP is 1007.49 mGy-cm. Automated exposure control was utilized for the study. A dose lowering technique was utilized adhering to the principles of ALARA. CONTRAST: Patient received 90 ml optiray 320 of IV contrast COMPARISON: 08/13/2021. FINDINGS: Lung bases: Coronary artery calcifications. No mass. No consolidation. ABDOMEN: Liver: Interval development of multiple solid masses throughout the liver, largest in the right lobe 3.8 x 4.1 cm. Gallbladder and bile ducts: Unremarkable. No calcified stones. No ductal dilation. Pancreas: Unremarkable. No mass. No ductal dilation. Spleen: Interval splenectomy. Adrenals: Unremarkable. No mass. Kidneys and ureters: Moderate bilateral hydronephrosis with severe bilateral hydroureter. No obstructing calculus. No renal or ureteral calcifications. Multiple bilateral renal cortical cysts. Multiple intermediate density bilateral renal masses versus complex cyst measuring up to 3.2 cm in the midpole of the left kidney. Stomach and bowel: Interval midline abdominal pelvic incision scar with interval development of a wide-mouth nonobstructing small bowel containing hernia. No obstruction or ileus. Status post left colon resection with anastomotic sutures at the splenic flexure. Mid transverse colon wall thickening to the splenic flexure. Collapsed left and proximal sigmoid colon with mild wall thickening. Distal left and sigmoid colon wall thickening. Distal rectal wall thickening. Multiple small enhancing vessels adjacent to the rectum, possibly varicosities. No evidence for diverticulitis. PELVIS: Appendix: No findings to suggest acute appendicitis. Bladder: Partially contracted with diffuse wall thickening. No mass. Reproductive: Enlarged heterogeneous prostate gland 5.9 x 4.8 cm. ABDOMEN and PELVIS: Intraperitoneal space: No free air. Small amount of pelvic free fluid. Bones/joints: No acute fracture. Degenerative changes of the spine. Soft tissues: Unremarkable. Vasculature: Atherosclerotic vascular calcifications. No abdominal aortic aneurysm. Lymph nodes: Unremarkable. No enlarged lymph nodes. IMPRESSION: Interval resection the splenic flexure site of previously demonstrated thickening. Interval splenectomy. Wall thickening of the mid to distal transverse colon to the anastomotic sutures with collapse of the colon distally. Mild wall left and sigmoid colon wall thickening. Considerations include nonspecific colitis versus recurrent or residual neoplasm. Ventral abdominal pelvic incision scar with associated nonobstructing bowel containing hernia. Distal rectal wall thickening. Multiple small enhancing vessels adjacent to the rectum, possibly varicosities. Small amount of ascites. Interval development of numerous liver masses, most suspicious for metastatic disease. Redemonstrated multiple simple and complex cyst versus solid masses, similar to the prior study. Recommend correlation to prior images to determine stability. Interval development of severe bilateral hydronephrosis and diffuse hydroureter without obstructing calculus. Partially contracted urinary bladder with diffuse wall thickening, possibly related to enlarged prostate gland. Otherwise no change. Electronically signed by: Minor Smith M.D. 10/02/24 00:24 AM
[2024-10-02 01:19] LABS: Hemoglobin 8.5 g/dl (14.0-18.0)
[2024-10-02] MEDS ORDERED: MELATONIN 3 MG TAB PO PRN (02:40)
[2024-10-02] MEDS ORDERED: ACETAMINOPHEN 325 MG TAB PO PRN (02:40)
[2024-10-02] MEDS ORDERED: ONDANSETRON INJ 2 MG/ML 2 ML VIAL IV PRN (02:40)
[2024-10-02 03:21] LABS: Basophils # (auto) 0.03 K/uL (0.00-0.20); Basophils % (auto) 0.3 %; Eosinophils # (auto) 0.02 K/uL (0.00-0.50); Eosinophils % (auto) 0.2 %; Hematocrit (blood only) 30.5 % (42.0-52.0); Hemoglobin 10.1 g/dl (14.0-18.0); Immature Granulocytes # (auto) 0.05 K/uL (0.01-0.20); Immature Granulocytes % (auto) 0.5 %; Lymphocytes # (auto) 1.27 K/uL (1.20-3.40); Lymphocytes % (auto) 12.5 %; Mean Corpuscular Hemoglobin 28.9 pg (25.0-34.0); Mean Corpuscular Hgb Conc 33.1 g/dL (32.0-36.0); Mean Corpuscular Volume 87.1 fL (80.0-100.0); Mean Platelet Volume 10.5 fL (9.4-12.4); Monocytes # (auto) 0.78 K/uL (0.11-0.59); Monocytes % (auto) 7.7 %; Neutrophils # (auto) 8.03 K/uL (1.40-6.50); Neutrophils % (auto) 78.8 %; Platelet Count 372 K/uL (130-400); RDW Coefficient of Variation 18.2 % (11.5-14.5); RDW Standard Deviation 58.1 fL (36.4-46.3); White Blood Count 10.18 K/ul (4.8-10.8)
[2024-10-02 04:06] LABS: Albumin Globulin Ratio 1.7 (0.9-2); Albumin Level 3.2 gm/dl (3.4-5.0); BUN Creatinine Ratio 20.4 (10-20); Bilirubin,Total 2.2 mg/dl (0.2-1.0); Creatinine Clr Calc Pharmacy 57.4 ml/min; Globulin 1.9 gm/dl (2.5-4.0); Magnesium 1.7 mg/dl (1.7-2.4); Potassium 4.7 mmol/L (3.5-5.1); Total Protein 5.1 gm/dl (6.0-8.3)
[2024-10-02] MEDS: LACTATED RINGER'S 1,000 ML IV SCH (04:39)
--- OUTSIDE RECORDS SUMMARY | 2024-10-02 05:36 | External Medical Summary | Summary of Care ---
Author Name Unknown Organization [facility] Address [address] [place] [address] Phone [phone] Care Team Providers Care Vp Corporate Development Name Role Phone Baljit Boatengger DO Primary Care Provider Reason for Visit * Reason Onset Date Comments Advice 05/21/2024 Encounter Details Date Type Department Care Team (Late st Contact Info) Description 05/21/2024 Telephone Urology, [facility] [address] [place] [address] Services, Scheduling [address] [place] [address] Advice Allergies Active Allergy Reactions Criticality Noted Date Comments Penicillins 02/06/2001 rash documented as of this encounter (statuses as of 08/21/2024) Medications Lisinopril-Alpine chlorothiazide 20-12.5 MG per tablet TAKE 1 TABLET DAILY. 30 Tab 5 6 Active Additional Information Patient not taking.Reported on 03/18/2024 Ascorbic Acid (VITAMIN C) 500 MG CAPSIndications: daily 1 Tablet . Active Multiple Vitamins-Mineral s (EMERGEN-C HEART HEALTH) PACKIndications: daily 1 Package . Active Fish Oil 1000 MG Oral Capsule Take 1 Capsule by mouth in the morning. Active Acetaminophen 325 MG Oral Tablet (Tylenol) Take by mouth 3 Tablets every 6 hours . 30 Tablet 2 Active Additional Information Patient not taking.Reported on 09/27/2022 Enoxaparin Sodium 40 MG/0.4ML Subcutaneous Solution (Lovenox) Inject under the skin 40 mg in the morning. 11.2 mL 2 Active Additional Information Patient not taking.Reported on 09/27/2022 traMADol HCl 50 MG Oral Tablet (Ultram) Take by mouth 1 Tablet every 6 hours as needed for Pain, Moderate or Pain, Severe. 10 Tablet 2 Active Additional Information Patient not taking.Reported on 09/27/2022 Aspirin 81 MG Oral Tablet Delayed Release (Aspirin 81) Take 1 Tablet by mouth in the morning. Active Lisinopril 10 MG Oral Tablet (Prinivil) Take 1 Tablet by mouth in the morning. Active documented as of this encounter (statuses as of 08/21/2024) Active Problems Problem Noted Date Diagnosed Date Metastatic adenocarcinoma 06/04/2024 Renal insufficiency 06/04/2024 Bilateral hydronephrosis 05/23/2024 Encounter for antineoplastic chemotherapy 2021 Iron deficiency anemia due to chronic blood loss 11/02/2021 Malignant neoplasm of splenic flexure 09/18/2021 Dyslipidemia, goal LDL below 130 09/03/2010 BMI 35-39 ISOLATED (SEE ACTUAL BMI) 11/09/2009 Overview (11/09/2009): Per Obesity Protocol, #19 HYPERTENSIVE HEART DZ 03/26/2009 Overview (03/26/2009): Per Heart Failure Taxonomy Protocol. documented as of this encounter (statuses as of 08/21/2024) Resolved Problems Problem Noted Date Diagnosed Date Resolved Date Hypertensive heart disease 1 Overview (03/26/2009): Per Heart Failure Taxonomy Protocol. Dyslipidemia, goal to be determined 09/03/2010 documented as of this encounter (statuses as of 08/21/2024) Immunizations Name Administration Dates Next Due HIB PRP-T, 4 Dose, PF, IM (Hiberix, ActHib) 08/28 Meningococcal B, OMV AJD, 2-Dose Series (BEXSERO ) 09/18/2021 Meningococcal MCV4O Conjugate Vaccine (Menveo) 0 09/18/2021 Pneumococcal Conjugate Vacc, 13 Valent (Prevnar) 09/18/2021 Pneumococcal Polysaccharide PPV23 (Pneumovax) Seasonal Influenza Vac., MDV, IM, 0.5 mL (Fluzon e) 04/17/2008 TD - Tetanus/Diptheria (ADULT) 04/01/2008 documented as of this encounter Social History Tobacco Use Types Packs/Day Years Used Date Smoking Tobacco: Former Cigarettes 0.5 5 Smokeless Tobacco: Former Chew Quit: 05/29/1969 Comments:quit - Alcohol Use Standard Drinks/Week Comments No 0 (1 standard drink = 0.6 oz pur e alcohol) Sex and Gender Information Value Date Recorded Sex Assigned at Male 07/24/2024 6:05 PM EST Legal Sex Male 5:16 AM EST Gender Identity Male 07/24/2024 6:05 PM EST Sexual Orientation Straight 07/24/2024 6: 05 PM EST documented as of this encounter Functional Status * Are you deaf or do you have serious difficulty hearing? Answer Date of Assessment Author No 09/16/2021 9:17 PM Kay Patel RN * Are you blind or do you have serious difficulty seeing, even when wearing glasses? Answer Date of Assessment Author No 09/16/2021 9:17 PM Kay Patel RN * Do you have serious difficulty walking or climbing stairs? (5 years old or older) Answer Date of Assessment Author No 09/16/2021 9:17 PM Kay Patel RN * Do you have difficulty dressing or bathing? (5 years old or older) Answer Date of Assessment Author No 09/16/2021 9:17 PM Kay Patel RN * Because of a physical, mental, or emotional condition, do you have difficulty doing errands alone such as visiting a doctor’s office or shopping? (15 years old or older) Answer Date of Assessment Author No 09/16/2021 9:17 PM Kay Patel RN documented as of this encounter Mental Status * Because of a physical, mental, or emotional condition, do you have serious difficulty concentrating, remembering, or making decisions? (5 years old or older) Answer Entry Date Author No 09/16/2021 9:17 PM Kay Patel D, RN documented in this encounter Miscellaneous Notes * Telephone Encounter - Mojgan Díaz OSA - 05/21/2024 1:02 PM EST Myg sent with appt date and time on 06/04 at 1:15pm. This will be at the [facility] office. * Telephone Encounter - Divya Davis LPN - 05/21/2024 12:11 PM EST Please move patient's 12/31/2024 up if possible. Thank you Monique * Telephone Encounter - Lory Nichole OSA - 05/21/2024 9:22 AM EST Pt's spouse requesting call back to verify that Provider is receiving labs he has drawn in [place]. Pt. had to cancel his apt on 05/27/24 due to going out of area for treatment and had to reschedule. Next available is 12/31/24 spouse enquiring if he should wait this long or can get in sooner. documented in this encounter Plan of Treatment Upcoming Encounters Date Type Department Care Team (Late st Contact Info) Description 08/26/2024 4:30 PM EDT Telemedicine Hematology/Oncology, [facility] [address] [place] [address] Rema Barraza CRNP [address] [place] [phone] 12/25/2024 2:45 PM EDT Office Visit Urology, [facility] [address] [place] [phone] Bart Hollis MD [address] [place] [phone] Scheduled Orders Name Type Priority Associated Diagnoses Orde r Schedule EKG EKG Routine Hydronephrosis, bilateral Expected: 05/24/2024 (Approximate), Expires: 06/24/2025 Scheduled Procedures Name Priority Associated Diagnoses Date/Ti me COLONOSCOPY FLEXIBLE PROXIMA L DIAGNOSTIC Recall History of colonic polyps Health Maintenance Due Date Last Done Comments COVID-19 Vaccine (#1) 1955 Hepatitis C Screening 1968 Zoster Vaccines (1 of 2) 08/23/1967 DTap/Tdap Vaccines (1 - Tdap) 04/02/2008 04/01/2008 Depression Screening 03/13/2015 03/13/2014 Influenza Vaccine (FLU shot) (#1) 2024 04/17/2008 Colonoscopy 09/30/2025 09/30/2022, 09/2022, 08/16/2021, Additional history exists MENINGOCOCCAL (MENACTRA/MENVEO) Aged Out 09/18/2021 No longer eligible based on patient's age to complete this topic Meningitis B Vaccine (Bexsero/Trumemba) Aged Out 09/18/2021 No longer eligible based on patient's age to complete this topic Pneumococcal Vaccine: 50+ Years Completed 09/18/2021, 03/13/2014 RETIRED - COLONOSCOPY-EVERY 5 YRS AGES 18-100 Discontinued 09/30/2022, 09/30/2022, 08/16/2021, Additional history exists HPV (Gardasil) Vaccine Aged Out No lo nger eligible based on patient's age to complete this topic Hepatitis B Vaccine Aged Out No longe r eligible based on patient's age to complete this topic documented as of this encounter Medical Devices Implanted Type Area Boilermaker Assembly And Erection Device Identifier Shelf Expiration Date Model / Serial / Lot Sureclip 16mm 235cm - [id number] Implanted:Qty: 1 on 09/30/2022 by Jeana Wayne MD at ENDOSCOPY [facility] MICRO TECH ENDOSCOPY 07/27/2024 [id number] / / [id number] documented as of this encounter Results * CULTURE, URINE, QUANTITATIVE (05/24/2024 10:07 AM EST) Culture Growth No significant growth 05/25/2024 11:49 AM EST [facility] Urine Urine specimen obtained by clean catch procedure / Unknown Non-blood Collection / Unknown 05/24/2024 10:07 AM EST 05/24/2024 10:07 AM EST Bart Hollis MD LAB MICRO - [facility]AL [facility] Final Result Performing Organization Address City/State/[facility] Co de Phone Number LABORATORY [facility] [address] [place] [address] documented in this encounter Visit Diagnoses Diagnosis Hydronephrosis, bilateral- Primary Hydronephrosis Urine culture positive Other nonspecific finding on examination of urine documented in this encounter Advance Directives * Full Code (Latest Code Status on File) Date Activated Date Inactivated Comments 09/16/2021 6:23 PM 09/19/2021 6:49 PM Question Answer Comments Discussion of Advance Directives occurred with: Not Discussed Does the patient have a Living Will? No Does the patient have Health Care Power of Attor michele? No Care Teams Vp Corporate Development Relationship Specialty Start Date End Date Baljit Boateng DO [address] [place] [address] PCP - General Family Medicine 12/31/15 documented as of this encounter
--- OUTSIDE RECORDS SUMMARY | 2024-10-02 05:36 | External Medical Summary | Summary of Care ---
Author Name Unknown Organization [facility] Address [address] [facility] [place] [address] Phone [phone] Care Team Providers Care Machine Farmworker Name Role Phone Baljit Boatengger Primary Care Provider Reason for Referral * Precert (Within 24 hrs (call dept; emergent)) - Authorized Specialty Diagnoses / Procedures Referred By Contac t Referred To Contact Radiology Diagnoses Malignant neoplasm of splenic flexure (HCC) Procedures PET CT SKULL BASE TO MID-THIGH FDG Rema Barraza CRNP [address] [place] [address] Phone: tel: fax: Referral ID Status Reason Start Date Expiration Date V isits Requested Visits Authorized [id number] Authorized 06/26/2024 999 999 Reason for Visit * Reason Comments Follow Up Encounter Details Date Type Department Care Team (Late st Contact Info) Description 06/26/2024 4:00 PM EST Office Visit Hematology/Oncology [facility] [place] [address] [place] [phone] Rema Barraza CRNP [address] [place] [phone] Malignant neoplasm of splenic flexure (HCC)* Allergies Active Allergy Reactions Criticality Noted Date Comments Penicillins 02/06/2001 rash documented as of this encounter (statuses as of 08/27/2024) Medications Lisinopril-[place] chlorothiazide 20-12.5 MG per tablet TAKE 1 TABLET DAILY. 30 Tab 5 6 Active Additional Information Patient not taking.Reported on 03/18/2024 Ascorbic Acid (VITAMIN C) 500 MG CAPSIndications: daily 1 Tablet . Active Multiple Vitamins-Mineral s (EMERGEN-C [place]) PACKIndications: daily 1 Package . Active Fish [...] Tablet by mouth in the morning. Active Quercetin 50 MG Oral Tablet Take by mouth. Act maureen Co Q-10 Plus Red Yeast Rice 60-600 MG Oral Capsule (Coenzyme Q10-Red Yeast Rice) Take by mouth. Activ e DIM-plus Oral Capsule Take by mouth. Activ e Berberine ES-5 200 MG Oral Capsule (Dihydroberberin e) Take by mouth. Activ e Grape Seed Extract 30 MG Oral Capsule Take by mouth. Ac tive Probiotic 10 Ultra Strength Oral Capsule Take by mouth. Ac tive Charcoal 200 MG Oral Capsule Take by mouth. Ac tive Caprylic Acid Liquid Use as directed. Active Shark Cartilage 740 MG Oral Capsule Take by mouth. Activ e documented as of this encounter (statuses as of 08/27/2024) Active Problems Problem Noted Date Diagnosed Date [...] as of this encounter (statuses as of 08/27/2024) Resolved Problems Problem Noted Date Diagnosed Date Resolved Date Hypertensive heart disease 1 Overview (03/26/2009): Per Heart Failure Taxonomy Protocol. Dyslipidemia, goal to be determined 09/03/2010 documented as of this encounter (statuses as of 08/27/2024) Immunizations Name Administration Dates Next Due HIB PRP-T, 4 Dose, PF, IM (Hiberix, ActHib) 08/28 Meningococcal B, OMV AJD, 2-Dose Series (BEXSERO ) 09/18/2021 Meningococcal MCV4O Conjugate Vaccine (Menveo) 0 09/18/2021 Pneumococcal Conjugate Vacc, 13 Valent (Prevnar) 09/18/2021 Pneumococcal Polysaccharide PPV23 (Pneumovax) Seasonal Influenza Vac., MDV, IM, 0.5 mL (Fluzon e) 04/17/2008 TD - Tetanus/Diptheria (ADULT) 04/01/2008 Tetanus Toxid Adsorbed 02/06/2001 documented as of this encounter Social History [...] PM EST documented as of this encounter Last Filed Vital Signs Vital Sign Reading Time Taken Comments Blood Pressure 158/80 06/26/2024 3:54 PM EST Pulse 64 06/26/2024 3:54 PM EST Temperature 36.3 °C (97.4 °F) 06/26/2024 3:54 PM ES T Respiratory Rate - - Oxygen Saturation 96% 06/26/2024 3:54 PM EST Inhaled Oxygen Concentration - - Weight 86.1 kg (189 lb 12.8 oz) 06/26/2024 3:54 PM EST Height - - Body Mass Index 28.03 03/05/2024 11:08 AM EDT documented in this encounter Functional Status * Are you deaf or do you have serious difficulty hearing? Answer Date of Assessment Author No 09/16/2021 9:17 PM EDT Kay Kolb RN * Are you blind or do you have serious difficulty seeing, even when wearing glasses? Answer Date of Assessment Author No 09/16/2021 9:17 PM EDT Kay Kolb RN * Do you have serious difficulty walking or climbing stairs? (5 years old or older) Answer Date of Assessment Author No 09/16/2021 9:17 PM EDT Kay Kolb RN * Do you have difficulty dressing or bathing? (5 years old or older) Answer Date of Assessment Author No 09/16/2021 9:17 PM EDT Kay Kolb RN * Because of a physical, mental, or emotional condition, do you have difficulty doing errands alone such as visiting a doctor’s office or shopping? (15 years old or older) Answer Date of Assessment Author No 09/16/2021 9:17 PM EDT Kay Kolb RN documented as of this encounter Mental Status * Because of a physical, mental, or emotional condition, do you have serious difficulty concentrating, remembering, or making decisions? (5 years old or older) Answer Entry Date Author No 09/16/2021 9:17 PM EDT Kay Kolb RN documented in this encounter Progress Notes * Rema Barraza CRNP - 06/26/2024 3:44 PM EST Hematology[facility] [address] [place] [address] Name: Haresh Douglas Date: 06/26/2024 CHIEF COMPLAINT: Haresh Douglas is a 73 year old male patient of Dr. Jimmy Perez here today for f/u visit From Patient chart confirmed history with patient. From Dr. Jimmy Perez note 03/05/2024 DIAGNOSIS: - Splenic flexure adenocarcinoma S/P resection, pathological T4a,N2b.( 01/11) - S/P splenectomy. No spleen involvement. - Normal preoperative CEA level - MSI stable -he declined for adjuvant chemotherapy treatment options. He was on alternative neuropathy medication treatment. He follows with Dr. Carlitos Maloney Alternative medicine practitioner in [place], [place]. Iron deficiency anemia received Ferric Derisomaltose (Monoferric) x1 dose on 11/19/2021. Bilateral hydronephrosis (January 2024. Liver lesions Toenail fungal infection on the right side. 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 CURRENT TREATMENT: Reports that he is getting IV Vitamin C and [place] (IV and weekly injections) near [place] Had been on hold x 3 weeks due to elevated kidney function. Has started back up on meds and wants to repeat imaging DIAGNOSTIC WORKUP: He was admitted between 08/13/2021-08/17/2021 for hematochezia.previous colonoscopy was in 2015. Hemoglobin level was around 14.5 earlier in late 06/2021,, dropped down to around 9.8 g/dL. CT scan of the abdomen and pelvis without contrast (08/13/2021: 1. Moderate circumferential wall thickening of the splenic flexure of the colon with mild pericolonic infiltration. This favors a nonspecific colitis. A nonemergent colonoscopy once symptoms resolve is recommended to exclude the possibility of an underlying lesion. No intraluminal contrast to suggest active bleed by CT. 2. Multiple airspace opacities within the lower lungs which favor an infectious process, possibly resolving. Colonoscopy (08/16/2021: - Severe stricture at the splenic flexure. Could not have complete colonoscopic evaluation. Colon, stricture, biopsy: - Invasive adenocarcinoma, signet-ring cell type - MSI stable (NANCY) CEA level --> 1.7 (08/30/2021). CT chest (09/03/2021). Scattered faint peripheral ground-glass opacities. Previously seen opacities at the lung bases are less prominent. Findings may be related to resolving infection. Mildly enlarged right hilar lymph node which may be reactive. Indeterminate bilateral renal lesions measuring higher than fluid density. Ultrasound is recommended for further evaluation. Underwent resection of the splenic flexure is a splenectomy on 09/16/[address] Resendez. Final pathology showed invasive Signet ring adenocarcinoma 8.5 cm, invading the retroperitoneum, tumor cells are present in the section of the mesentric margin. Head and proximal and distal margin negative - Extensive lymphovascular invasion noted - 7 out of 14 lymph nodes positive for metastatic disease - T4 a N2b.( 01/11) Splenectomy showed benign findings, one out of two lymph duyen positive for metastatic adenocarcinoma. OTHER IMPORTANT HISTORY: - Osteoarthritis - Hypertension - History of COVID-19 infection. (June 2021). - Impaired hearing INTERVAL HISTORY: He has come the clinic for the follow-up, accompanied by his in the office. He says that he is feeling well. He has bilateral knee pain but left knee is worse. No other pain. No weight loss noted. No change in energy level or appetite. Denies chest pain or shortness of breath. NO abdominal pain, cramping, constipation or diarrhea. No urinary issues. HISTORY OF PRESENT ILLNESS: Haresh Dougals is a 73 year old male with a history as outlined above. Currently here for f/u visit today. Continues to be see in [place]--getting alternative therapy. Reviewed last PET scan with pt and . Past Medical History: Diagnosis Date Dyslipidemia, goal to be determined Hypertensive heart disease Past Surgical History: Procedure Laterality Date COLONOSCOPY ? for breight red blood ? polyps COLONOSCOPY, DIAGNOSTIC (RECTUM) 01/04/2016 adenomatous polyps, repeat 5 yrs/COLONOSCOPY FLEXIBLE PROXIMAL DIAGNOSTIC performed by Jeana Wayne MD at [facility] COLONOSCOPY, DIAGNOSTIC (RECTUM) 08/16/2021 Severe stricture at the splenic flexure, diverticulosis / [facility] COLONOSCOPY, DIAGNOSTIC (RECTUM) 08/16/2021 invasive adenocarcinoma / [facility] COLONOSCOPY, DIAGNOSTIC (RECTUM) 09/30/2022 biopsies show adenomatous polps/recall 3 years/COLONOSCOPY FLEXIBLE PROXIMAL DIAGNOSTIC performed by Jeana Wayne MD at [facility] COLORECTAL CANCER SCREEN; COLON 05/14/2008 wnl LAPAROSCOPIC PART COLECTOMY W/COLOPROCTOSTOMY, COLOSTOMY N/A 09/16/2021 LAPAROSCOPIC PARTIAL COLECTOMY COLOPROCTOSTOMY AND COLOSTOMY performed by Pam Resendez MD at [place] [facility] REMOVE TONSILS & ADENOIDS, AGE 12+ VASECTOMY Social History Socioeconomic History Marital status: Spouse name: Not on file Number of children: Not on file Years of education: Not on file Highest education level: Not on file Occupational History Not on file Tobacco Use Smoking status: Former Current packs/day: 0.50 Average packs/day: 0.5 packs/day for 5.0 years (2.5 ttl pk-yrs) Types: Cigarettes Smokeless tobacco: Former Types: Chew Quit date: 05/29/1969 Tobacco comments: quit - s Vaping Use Vaping status: Never Used Substance and Sexual Activity Alcohol use: No Drug use: Never Sexual activity: Not on file Other Topics Concern Not on file Social History Narrative Not on file Social Needs Financial Resource Strain: Not on file Food Insecurity: Not on file Transportation Needs: Not on file Social Connections: Not on file Housing Stability: Not on file Review of patient's allergies indicates: Allergen Reactions Penicillins rash Current Outpatient Medications Medication Sig Dispense Refill Lisinopril-Hydrochlorothiazide 20-12.5 MG per tablet TAKE 1 TABLET DAILY. (Patient not taking: Reported on 03/18/2024) 30 Tab 5 Ascorbic Acid (VITAMIN C) 500 MG CAPS 1 Tablet . Multiple Vitamins-Minerals (EMERGEN-C HEART HEALTH) PACK 1 Package . Fish Oil 1000 MG Oral Capsule Take 1 Capsule by mouth in the morning. Acetaminophen 325 MG Oral Tablet (Tylenol) Take by mouth 3 Tablets every 6 hours . (Patient not taking: Reported on 01/17/2022) 30 Tablet 0 Enoxaparin Sodium 40 MG/0.4ML Subcutaneous Solution (Lovenox) Inject under the skin 40 mg in the morning. (Patient not taking: Reported on 01/17/2022) 11.2 mL 0 traMADol HCl 50 MG Oral Tablet (Ultram) Take by mouth 1 Tablet every 6 hours as needed for Pain, Moderate or Pain, Severe. (Patient not taking: Reported on 01/17/2022) 10 Tablet 0 Aspirin 81 MG Oral Tablet Delayed Release (Aspirin 81) Take 1 Tablet by mouth in the morning. Lisinopril 10 MG Oral Tablet (Prinivil) Take 1 Tablet by mouth in the morning. No current facility-administered medications for this visit. REVIEW OF SYSTEMS: See HPI - otherwise negative OBJECTIVE: Filed Vitals: 06/26/24 1554 BP: 158/80 Pulse: 64 Temp: 36.3 °C (97.4 °F) TempSrc: Tympanic SpO2: 96% Weight: 86.1 kg (189 lb 12.8 oz) Repeat bp 144/80 Wt Readings from Last 5 Encounters: 06/26/24 86.1 kg (189 lb 12.8 oz) 03/05/24 93.4 kg (206 lb) 02/27/24 94.9 kg (209 lb 3.2 oz) 08/15/23 99.7 kg (219 lb 14.2 oz) 05/09/23 99.5 kg (219 lb 6.4 oz) Weight loss from February noted PHYSICAL EXAM: ECOG: Performance Status 0 = 100% Normal Activity General Appearance: Normal - Healthy appearing patient in no acute distress HEENT: Normal - No oral or pharyngeal masses, ulceration or thrush noted, no sinus tenderness Lymph Nodes: Normal - No palpable lymph nodes in the neck or supraclavicular areas Lungs/Thorax: Normal - Clear to auscultation Heart: Normal - Regular rate and rhythm, normal S1, S2, no appreciable murmurs, rubs, gallops Pulses/Extremities: Normal - 2+ throughout and symmetrical, no edema Abdomen: Normal - Soft, nontender, bowel sounds present, no appreciable hepatosplenomegaly, no palpable masses Musculoskeletal: Normal - No pain on palpation over bony prominence, no joint or bony deformity Neurologic: Normal - Grossly intact LABS: Results for orders placed or performed in visit on 06/11/24 COMPREHENSIVE METABOLIC PANEL Result Value Ref Range BUN 22 (H) 6 - 20 mg/dL CREATININE 1.2 0.6 - 1.2 mg/dL EGFR 63 >=60 mL/min SODIUM 137 135 - 146 mmol/L POTASSIUM 5.1 3.5 - 5.1 mmol/L CHLORIDE 101 98 - 107 mmol/L CO2 25 22 - 32 mmol/L ANION GAP 11 7 - 15 mmol/L GLUCOSE 111 70 - 120 mg/dL Albumin 4.3 3.8 - 5.0 g/dL AST 21 10 - 50 U/L Alkaline Phosphatase 62 35 - 130 U/L Bilirubin, Total 0.8 <=1.2 mg/dL CALCIUM 9.8 8.4 - 10.2 mg/dL Protein 6.8 6.0 - 8.3 g/dL ALT 14 10 - 50 U/L IMAGING: PET 04/02/24 IMPRESSION 1. Hypermetabolic pancreatic body mass, consistent with malignancy, possibly pancreatic primary versus recurrence of colon malignancy. The mass abuts a loop of the jejunum. 2. Multiple hypermetabolic hepatic metastases. 3. Tiny but metabolically active nodules in the periphery of the umbilical hernia, concerning for tumor implants. 4. Additional probable tumor implant in the pelvis, just posterior to the seminal vessicles. Similar bilateral hydronephrosis could be related to implants near their insertion, but assessment is limited by excreted radiotracer. 5. Uptake near the pancreatic head, likely related to a small but enlarging peripancreatic lymph node, concerning for duyen metastasis. A mildly active left lower paratracheal lymph node is suspicious for the same. 6. Mild focal uptake associated with a 2.1 cm left thyroid nodule. Consider thyroid ultrasound, if clinically indicated. CT scan of the abdomen and pelvis done on 11/22/2021: -postoperative changes noted of previous partial colectomy and splenectomy. -postoperative changes noted in the distal pancreatic tail region. -bilateral indeterminate density kidney lesions which may be cyst or solid lesions. This requires MRI of the abdomen (with and without contrast ) for further evaluation. - mild pelvic lymphadenopathy (1.3 cm involving the right external iliac region), which was there in the previous imaging study done in 07/2021. MRI of the abdomen (12/17/2021: - The renal lesions of concern are compatible with hemorrhagic/proteinaceous cysts. No suspicious renal mass. MRI of the abdomen on 07/15/2022: - Decreased T1 signal involving the distal pancreas with mild associated parenchymal atrophy and minimal prominence of the distal main pancreatic duct (measuring 3 mm) when compared to the proximal pancreas. Findings unchanged from prior MRI and likely related to postoperative changes. -S/P splenectomy noted. CT scan of the chest, abdomen pelvis done on 12/09/2022: -no evidence of recurrent disease noted anywhere else. CT scan of the chest, abdomen and pelvis on 02/15/2024: - Few ill-defined hypodense lesions in the liver suspicious for metastatic disease. (Right of the liver lesion measuring 2.2 cm). few lesions are likely tiny cysts. - Minimal worsening of the pancreatic ductal dilatation. - New bilateral hydronephrosis and hydroureter left more than right. Probable soft tissue thickening involving the distal most portion of the ureters with surrounding stranding. -New sub cm lymph node in the right lower quadrant indeterminate. ASSESSMENT AND PLAN: 71-year-old male, a case of splenic flexure adenocarcinoma, S/P the resection, final pathology showed T4 8, N2b, 8/16lymph nodes positive for metastatic disease - Normal preoperative CEA level - MSI stable. - Also required a splenectomy when he had a surgery. - As per the patient she received vaccination before the discharge and her Primary care provider isgoing to arrange rest of the vaccination that are needed after the splenectomy. - declined adjuvant chemotherapy for treatment of colon cancer diagnosis - PET scan to be repeated in 2 months with cbc, cea, cmp (he is not getting treatment here) - Fax results to Dr. Carlitos Maloney Alternative medicine practitioner in [place], [place]. -Because of bilateral hydronephrosis, continue to see URSZULA Florentino documented in this encounter Nursing Notes * Arlene Abdul MED ASSIST - 06/26/2024 3:54 PM EST Patient identifed by name and birthdate Do you have any concerns about pain management for today's visit? Yes. Patient instructed to discuss pain concerns with provider during the visit today Living Will or Advance Directive for Health Care as noted on the problem list. [facility] is a way you can talk to your provider on line through e-mail. Would you like to sign up? I can activate it for you? ALREADY ACTIVE Filed Vitals: 06/26/24 1554 BP: 158/80 Pulse: 64 Temp: 36.3 °C (97.4 °F) TempSrc: Tympanic SpO2: 96% Weight: 86.1 kg (189 lb 12.8 oz) Patient was instructed to not get up on the exam table/exam chair until directed and assisted by their provider; patient is to remain seated in the chair/ wheelchair/ exam table/ exam chair for fall prevention and safety reasons. Patient is aware to have assistance to step down off exam table/exam chair with personnel. Patient voiced full comprehension of instructions. documented in this encounter Miscellaneous Notes * Result Encounter Note - Rema Barraza CRNP - 08/27/2024 2:19 PM EDT Attempted to call with results No answer Upcoming appt MSM * Result Encounter Note - Jimmy Perez MD - 2024 6:49 AM EDT - Disease progression noted in the abdomen (liver, mesentric lymphadenopathy, pelvis). Currently he is not on any systemic chemotherapy and so these findings perhaps expected with his current alternate type of medications. * Result Encounter Note - Rema Barraza CRNP - 08/20/2024 12:27 PM EDT Appt on 08/26/24 to discuss MSM documented in this encounter Plan of Treatment Upcoming Encounters Date Type Department Care Team (Late st Contact Info) Description 09/04/2024 5:00 PM EDT Telemedicine Hematology/Oncology [facility] [address] [facility] [place], [place] [phone] Rema Barraza CRNP [address] [place] [phone] 12/25/2024 2:45 PM EDT Office Visit Urology, [facility] [address] [place] [phone] Bart Hollis MD [address] [place] [address] Scheduled Procedures Name Priority Associated Diagnoses Date/Ti me COLONOSCOPY FLEXIBLE PROXIMA L DIAGNOSTIC Recall History of colonic polyps Health Maintenance Due Date Last Done Comments COVID-19 Vaccine (#1) 1955 Depression Screening 1960 Hepatitis C Screening 1966 Zoster Vaccines (1 of 2) 08/23/1967 DTap/Tdap Vaccines (1 - Tdap) 04/02/2008 04/01/2008 Influenza Vaccine (FLU shot) (Season Ended) 2025 04/17/2008 Colonoscopy 09/30/2025 09/30/2022, 09/2022, 08/16/2021, Additional [...] this encounter Medical Devices Implanted Type Area Manager Land Device Identifier Shelf Expiration Date Model / Serial / Lot Sureclip 16mm 235cm - [id number] Implanted:Qty: 1 on 09/30/2022 by Jeana Wayne MD at [facility] MICRO TECH ENDOSCOPY 07/27/2024 [id number] / / [id number] documented as of this encounter Procedures Procedure Name Priority Date/Time Associated Diagnosis Comments PET CT SKULL BASE TO MID-THIGH STAT 08/20/2024 10:00 AM EDT Malignant neoplasm of splenic flexure (HCC) documented in this encounter Results * PET CT SKULL BASE TO MID-THIGH FDG (08/20/2024 10:00 AM EDT) Anatomical Region Laterality Modality Body, Chest, Abdomen, Pelvis Pos itron Emission Tomography (PET) 08/20/2024 11:5 4 AM EDT Narrative 08/20/2024 11:51 AM EDT EXAM: PET CT SKULL BASE TO MID-THIGH FDG - 08/20/2024 - 08/20/2024 10:00 am HISTORY 73 y/o ,M,f/u cancer. Subsequent evaluation. COMPARISON: PET CT SKULL BASE TO MID-THIGH FDG, ACC: [id number], dated 2024-04-02 08:24:32; CT CHEST_ABDOMEN_PELVIS WITH IV CONTRAST WITH ORAL CONTRAST, ACC: [id number], dated 2024-02-15 10:10:04 TECHNIQUE: The patient's fasting blood glucose was 106 mg/dL. Approximately 60 minutes following intravenous injection of 12 mCi 06-byxdvg-3-deoxyglucose (FDG) within the right antecubital fossa, low dose noncontrast CT images were obtained at 5 mm slice thickness from the skull basethrough mid thighs. Then, emission PET images were obtained through the same region. The noncontrast CT was used for anatomic localization and photon attenuation correction of the PET scan. The standardized uptake values (SUV) reported below are maximum values within a region of interest. FINDINGS: BACKGROUND METABOLIC ACTIVITY - Lower limit, mediastinal blood pool: SUV 2.8. - Upper limit, liver: SUV 3.3. HEAD Symmetric activity within the visualized skull base. NECK Metabolically-active cervical lymph nodes: Absent. CHEST LINES DEVICES: Absent. LUNG Focal metabolic activity within lungs: Absent. METABOLICALLY-ACTIVE LYMPH NODES Mediastinal: Absent. Hilar: Absent. Axillary: Absent. MEDIASTINUM Normal heart size. No pericardial effusion. VESSELS Calcified coronary artery plaque burden: Moderate. Aortic valvular calcification: Absent. Thoracic aortic aneurysm: Absent. ABDOMEN LINES DEVICES: Absent. ABDOMINAL WALL/PERITONEUM: No ascites. INTRAPERITONEUM Metabolically-active intraperitoneal lymph nodes: - Interval increase in mesenteric lymphadenopathy extending into an umbilical hernia, current 2 cm, SUV 8.3; previous 1 cm, SUV 3; sagittal fused image 47. Liver: - Increase in new liver metastases. For example, left lobe metastasis, 4.7 x 3.7 cm hypodense spherical mass, SUV 13; axial fused image 72. - Increase in size of existing liver metastases. For example, 5.1 cm segment IV mass, SUV 10.2; previously 2 cm; series 3, image 71. Spleen: Splenectomy. Biliary: Unremarkable. Bowel: No small bowel dilatation or evidence for obstruction. Formed stool within large bowel. RETROPERITONEUM Metabolically-active retroperitoneal lymph nodes: Absent. Adrenal glands: Symmetric low metabolic activity throughout both adrenal glands. Pancreas: 5 x 3 cm mass within the body upstream ductal dilatation, current SUV 6.5; previous SUV 7.3. Kidneys: Photopenic cortical cysts bilaterally. Chronic moderate bilateral hydroureteronephrosis. Excreted radiotracer activity within the renal collecting systems, ureters and urinary bladder Abdominal aorta: No aneurysm. PELVIS Metabolically-active pelvic lymph nodes: Absent. Prostatomegaly, 6.4 cm (TV diameter) with bladder base elevation and diffuse wall thickening, suggests outlet obstruction. - Increase, 2 cm, SUV 7 soft tissue nodule in the midline pelvis between the seminal vesicles; previously 1 cm, SUV 3.4. MUSCULOSKELETAL Right shoulder reverse arthroplasty. Focal metabolic activity within bones: Absent. IMPRESSION: Progression of metastatic disease: 1. Increase in size and number of metabolically-active liver metastases. 2. Increase in metabolically-active mesenteric lymphadenopathy extending into an umbilical hernia. 3. Increase in size of 2 cm metabolically-active soft tissue nodule in the midline pelvis between the seminal vesicles. 4. Stable 5 x 3 cm metabolically-active mass within the pancreatic body. Procedure Note Oseas Alegria MD - 08/20/2024 EXAM: PET CT SKULL BASE TO MID-THIGH FDG - 08/20/2024 - 08/20/2024 10:00 am HISTORY 73 y/o ,M,f/u cancer. Subsequent evaluation. COMPARISON: PET CT SKULL BASE TO MID-THIGH FDG, ACC: [id number], dated :24:32; CT CHEST_ABDOMEN_PELVIS WITH IV CONTRAST WITH ORAL CONTRAST, ACC:[id number], dated 2024-02-15 10:10:04 TECHNIQUE: The patient's fasting blood glucose was 106 mg/dL. Approximately 60minutes following intravenous injection of 12 mCi 00-xddyyy-2-deoxyglucose(FDG) within the right antecubital fossa, low dose noncontrast CT imageswere obtained at 5 mm slice thickness from the skull basethrough midthighs. Then, emission PET images were obtained through the same region.The noncontrast CT was used for anatomic localization and photonattenuation correction of the PET scan. The standardized uptake values(SUV) reported below are maximum values within a region of interest. FINDINGS: BACKGROUND METABOLIC ACTIVITY - Lower limit, mediastinal blood pool: SUV 2.8. - Upper limit, liver: SUV 3.3. HEAD Symmetric activity within the visualized skull base. NECK Metabolically-active cervical lymph nodes: Absent. CHEST LINES DEVICES: Absent. LUNG Focal metabolic activity within lungs: Absent. METABOLICALLY-ACTIVE LYMPH NODES Mediastinal: Absent. Hilar: Absent. Axillary: Absent. MEDIASTINUM Normal heart size. No pericardial effusion. VESSELS Calcified coronary artery plaque burden: Moderate. Aortic valvular calcification: Absent. Thoracic aortic aneurysm: Absent. ABDOMEN LINES DEVICES: Absent. ABDOMINAL WALL/PERITONEUM: No ascites. INTRAPERITONEUM Metabolically-active intraperitoneal lymph nodes: - Interval increase in mesenteric lymphadenopathy extending into anumbilical hernia, current 2 cm, SUV 8.3; previous 1 cm, SUV 3; sagittalfused image 47. Liver: - Increase in new liver metastases. For example, left lobe metastasis,4.7 x 3.7 cm hypodense spherical mass, SUV 13; axial fused image 72. - Increase in size of existing liver metastases. For example, 5.1 cmsegment IV mass, SUV 10.2; previously 2 cm; series 3, image 71. Spleen: Splenectomy. Biliary: Unremarkable. Bowel: No small bowel dilatation or evidence for obstruction. Formedstool within large bowel. RETROPERITONEUM Metabolically-active retroperitoneal lymph nodes: Absent. Adrenal glands: Symmetric low metabolic activity throughout both adrenalglands. Pancreas: 5 x 3 cm mass within the body upstream ductal dilatation,current SUV 6.5; previous SUV 7.3. Kidneys: Photopenic cortical cysts bilaterally. Chronic moderatebilateral hydroureteronephrosis. Excreted radiotracer activity within therenal collecting systems, ureters and urinary bladder Abdominal aorta: No aneurysm. PELVIS Metabolically-active pelvic lymph nodes: Absent. Prostatomegaly, 6.4 cm (TV diameter) with bladder base elevation anddiffuse wall thickening, suggests outlet obstruction. - Increase, 2 cm, SUV 7 soft tissue nodule in the midline pelvis betweenthe seminal vesicles; previously 1 cm, SUV 3.4. MUSCULOSKELETAL Right shoulder reverse arthroplasty. Focal metabolic activity within bones: Absent. IMPRESSION: Progression of metastatic disease: 1. Increase in size and number of metabolically-active liver metastases. 2. Increase in metabolically-active mesenteric lymphadenopathy extendinginto an umbilical hernia. 3. Increase in size of 2 cm metabolically-active soft tissue nodule in themidline pelvis between the seminal vesicles. 4. Stable 5 x 3 cm metabolically-active mass within the pancreatic body. us Rema SEAMAN RAD NUCLEAR MED Final Res ult * (ABNORMAL) COMPREHENSIVE METABOLIC PANEL (07/26/2024 7:53 AM EST) BUN 21(H) 6 - 20 mg/dL 07/26/2024 5:03 PM EST [facility] CREATININE 1.2 0.6 - 1.2 mg/dL 07/26/2024 5:03 PM EST [facility] EGFR 66 >=60 mL/min 07/26/2024 5:03 PM EST [facility] Comment:eGFR is calculated b ased on the CKD-EPI 2020 equation. SODIUM 139 135 - 146 mmol/L 07/26/2024 5:03 PM EST [facility] POTASSIUM 4.4 3.5 - 5.1 mmol/L 07/26/2024 5:03 PM EST [facility] CHLORIDE 100 98 - 107 mmol/L 07/26/2024 5:03 PM EST [facility] CO2 23 22 - 32 mmol/L 07/26/2024 5:03 PM EST [facility] ANION GAP 16(H) 7 - 15 mmol/L 07/26/2024 5:03 PM EST [facility] GLUCOSE 94 70 - 120 mg/dL 07/26/2024 5:03 PM EST [facility] Albumin 4.4 3.8 - 5.0 g/dL 07/26/2024 5:03 PM EST [facility] AST 19 10 - 50 U/L 07/26/2024 5:03 PM EST [facility] Alkaline Phosphatase 64 35 - 130 U/L 07/26/2024 5:03 PM EST [facility] Bilirubin, Total 0.7 <=1.2 mg/dL 07/26/2024 5:03 PM EST [facility] CALCIUM 9.7 8.4 - 10.2 mg/dL 07/26/2024 5:03 PM EST [facility] Protein 6.6 6.0 - 8.3 g/dL 07/26/2024 5:03 PM EST [facility] ALT 16 10 - 50 U/L 07/26/2024 5:03 PM EST [facility] Blood Venous blood specimen / Unknown Venipuncture / Unknown 07/26/2024 7:53 AM EST 07/26/2024 7:53 AM EST Rema SEAMAN LAB BLOOD ORDERABLES Kimberly l Result Performing Organization Address City/[facility]/ZIP Co de Phone Number LAB[facility]ATORY [facility] [address] [place] [address] * CEA (07/26/2024 7:53 AM EST) CEA 2.3 <=5.2 ng/mL 07/26/2024 5:08 PM EST [facility] Blood Venous blood specimen / Unknown Venipuncture / Unknown 07/26/2024 7:53 AM EST 07/26/2024 7:53 AM EST Rema SEAMAN LAB BLOOD ORDERABLES Kimberly l Result [facility] [address] [place] [address] documented in this encounter Visit Diagnoses Diagnosis 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 No Does the patient have Health Care Power of Attor michele? No Care Teams Machine Farmworker Relationship Specialty Start Date End Date Baljit Boateng DO [address] [place] [address] PCP - General Family Medicine 12/31/15 documented as of this encounter
--- OUTSIDE RECORDS SUMMARY | 2024-10-02 05:36 | External Medical Summary | Summary of Care ---
Author Name Unknown Organization [facility] Address [address] [address] Phone [phone] Care Team Providers Care Game Farm Helper Name Role Phone Baljit Boatengger Primary Care Provider Reason for Referral * Precert (Within 24 hrs (call dept; emergent)) - Authorized Specialty Diagnoses / Procedures Referred By Contac t Referred To Contact Radiology Diagnoses Malignant neoplasm of splenic flexure (HCC) Liver lesion Procedures PET CT SKULL BASE TO MID-THIGH FDG Rema Barraza CRNP [address] [place] [address] Phone: tel: fax: Referral ID Status Reason Start Date Expiration Date V isits Requested Visits Authorized [id number] Authorized 09/05/2024 999 999 Reason for Visit * Reason Comments Follow Up Test results Encounter Details Date Type Department Care Team (Late st Contact Info) Description 09/04/2024 5:00 PM EDT Telemedicine Hematology/Oncology [employer] [address] [place] [address] Rema Barraza CRNP [address] [address] Malignant neoplasm of splenic flexure (HCC)*; Liver lesion Allergies Active Allergy Reactions Criticality Noted Date Comments Penicillins 02/06/2001 rash documented as of this encounter (statuses as of 09/18/2024) Medications Lisinopril-Darragh chlorothiazide 20-12.5 MG per tablet TAKE 1 [...] as of this encounter (statuses as of 09/18/2024) Active Problems Problem Noted Date Diagnosed Date [...] as of this encounter (statuses as of 09/18/2024) Resolved Problems Problem Noted Date Diagnosed Date Resolved Date Hypertensive heart disease 1 Overview (03/26/2009): Per Heart Failure Taxonomy Protocol. Dyslipidemia, goal to be determined 09/03/2010 documented as of this encounter (statuses as of 09/18/2024) Immunizations Name Administration Dates Next Due HIB [...] of Assessment Author No 09/16/2021 9:17 PM DEBORAHT Kay Kolb RN documented as of this encounter Mental Status * Because of a physical, mental, or emotional condition, do you have serious difficulty concentrating, remembering, or making decisions? (5 years old or older) Answer Entry Date Author No 09/16/2021 9:17 PM Kay Patel RN documented in this encounter Progress Notes * Rema Barraza CRNP - 09/04/2024 5:00 PM EDT Patient location: HOME. I was in a hospital or clinic location. After connecting through phone, patient was verified with two unique identifiers. Patient (or authorized legal sales representative printing supplies) was theninformed that this was a Telemedicine visit and being conducted confidentially over secure lines. Methods to assure confidentiality were taken. Patient acknowledged consent and understanding of privacy and security of the Telemedicine visit. The patient agreed to participate. Hematology/Oncology Outpatient [place] [address] [place] [address] Name: Haresh Douglas Date: 09/04/2024 CHIEF COMPLAINT: Haresh Douglas is a 73 [...] Dr. Carlitos Maloney Alternative medicine practitioner in [place], [place]. Iron deficiency anemia received Ferric Derisomaltose (Monoferric) x1 dose on 11/19/2021. Bilateral hydronephrosis (January 2024. Liver lesions Toenail fungal infection on the right side. 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 CURRENT TREATMENT: Reports that he is getting IV Vitamin C and Mistletoe (IV and weekly injections) near [place] DIAGNOSTIC WORKUP: He was admitted between 08/13/2021-08/17/2021 for hematochezia.previous colonoscopy was in 2016. Hemoglobin level was around 14.5 earlier in [...] COVID-19 infection. (June 2021). - Impaired hearing HISTORY OF PRESENT ILLNESS: Haresh Douglas is a 74 year old male with a history as outlined above. Currently here for f/u visit today to review recent PET scan. He continues to get treatment in [place]. Overall feeling well. See full ROS below. Past Medical History: Diagnosis Date Dyslipidemia, goal to be determined Hypertensive heart disease Past Surgical History: Procedure Laterality Date COLONOSCOPY ? for breight red blood ? polyps COLONOSCOPY, DIAGNOSTIC (RECTUM) 01/04/2016 adenomatous polyps, repeat 5 yrs/COLONOSCOPY FLEXIBLE PROXIMAL DIAGNOSTIC performed by Jeana Wayne MD at ENDOSCOPY [facility] COLONOSCOPY, DIAGNOSTIC (RECTUM) 08/16/2021 Severe stricture at the splenic flexure, diverticulosis / [facility] COLONOSCOPY, DIAGNOSTIC (RECTUM) 08/16/2021 invasive adenocarcinoma / [facility] COLONOSCOPY, DIAGNOSTIC (RECTUM) 09/30/2022 biopsies show adenomatous polps/recall 3 years/COLONOSCOPY FLEXIBLE PROXIMAL DIAGNOSTIC performed by Jeana Wayne MD at ENDOSCOPY [facility] COLORECTAL CANCER SCREEN; COLON 05/14/2008 wnl LAPAROSCOPIC PART COLECTOMY W/COLOPROCTOSTOMY, COLOSTOMY N/A 09/16/2021 LAPAROSCOPIC PARTIAL COLECTOMY COLOPROCTOSTOMY AND COLOSTOMY performed by Pam Resendez MD at [facility] REMOVE TONSILS & ADENOIDS, AGE 12+ VASECTOMY [...] Quit date: 05/29/1969 Tobacco comments: quit - Vaping Use Vaping status: Never Used Substance [...] CAPS 1 Tablet . Multiple Vitamins-Minerals (EMERGEN-C AwesomeTouch) PACK 1 Package . Fish Oil 1000 [...] 1 Tablet by mouth in the morning. Quercetin 50 MG Oral Tablet Take by mouth. Co Q-10 Plus Red Yeast Rice 60-600 MG Oral Capsule (Coenzyme Q10-Red Yeast Rice) Take by mouth. DIM-plus Oral Capsule Take by mouth. Berberine ES-5 200 MG Oral Capsule (Dihydroberberine) Take by mouth. Grape Seed Extract 30 MG Oral Capsule Take by mouth. Probiotic 10 Ultra Strength Oral Capsule Take by mouth. Charcoal 200 MG Oral Capsule Take by mouth. Caprylic Acid Liquid Use as directed. Shark Cartilage 740 MG Oral Capsule Take by mouth. No current facility-administered medications for this visit. REVIEW OF SYSTEMS: Review of Systems Constitutional: Negative for appetite change, chills, fatigue and fever. Eating small amounts, has lost weight, but has changed diet Unsure on weight loss HENT: Negative for mouth sores and trouble swallowing. Respiratory: Negative for chest tightness and shortness of breath. Cardiovascular: Negative for chest pain and leg swelling. Gastrointestinal: Positive for abdominal pain. Negative for blood in stool, constipation, diarrhea,nausea and vomiting. Mild abdominal pain on/off Genitourinary: Negative for difficulty urinating and hematuria. Musculoskeletal: Positive for gait problem. Skin: Negative. Neurological: Positive for gait problem. Negative for numbness. Uses a cane, left knee pain Psychiatric/Behavioral: Negative for depression and sleep disturbance. The patient is not nervous/anxious. OBJECTIVE: LABS: none IMAGING: PET 08/20/24 IMPRESSION: Progression of metastatic disease: 1. Increase in size and number of metabolically-active liver metastases. 2. Increase in metabolically-active mesenteric lymphadenopathy extending into an umbilical hernia. 3. Increase in size of 2 cm metabolically-active soft tissue nodule in the midline pelvis between the seminal vesicles. 4. Stable 5 x 3 cm metabolically-active mass within the pancreatic body. IMAGING: PET 04/02/24 IMPRESSION 1. Hypermetabolic pancreatic [...] right lower quadrant indeterminate. ASSESSMENT AND PLAN: a case of splenic flexure adenocarcinoma, S/P [...] - PET scan to be repeated in 6 months with cbc, cea, cmp (he is not getting treatment here) - Fax results to Dr. Carlitos Maloney Alternative medicine practitioner in [place], [place]. -Because of bilateral hydronephrosis, continue to see Dr. Hollis URSZULA Moreno I spent a total of 30-39 minutes (exact time 35 mins) on the date of service in preparation, delivery, and documentation of the care provided to Haresh Douglas excluding any time spent in the performance of separately billed services or time spent by another provider/QHP. documented in this encounter Plan of Treatment Upcoming Encounters Date Type Department Care Team (Late st Contact Info) Description 12/25/2024 2:45 PM EDT Office Visit Urology, [facility] [address] [place] [phone] Bart Hollis MD [address] [place] [address] [place] [address] 02/11/2025 10:45 AM EDT Imaging [facility] [address] [place] [phone] 02/20/2025 5:00 PM EDT Telemedicine Hematology/Oncology [facility] [address] [facility] [place] [phone] Rema Barraza CRNP [address] [facility] [place] [address] Scheduled Orders Name Type Priority Associated Diagnoses Orde r Schedule PET CT SKULL BASE TO MID-THIGH FDG Medical Imaging STAT Malignant neoplasm of splenic flexure (HCC) Liver lesion Ordered: 09/05/2024 Scheduled Procedures Name Priority Associated Diagnoses Date/Ti [...] this encounter Medical Devices Implanted Type Area Shipping Checker Device Identifier Shelf Expiration Date Model / Serial / Lot Sureclip 16mm 235cm - [id number] Implanted:Qty: 1 on 09/30/2022 by Jeana Wayne MD at ENDOSCOPY [facility] MICRO TECH ENDOSCOPY 07/27/2024 [id number] / / [id number] documented as of this encounter Visit Diagnoses Diagnosis Malignant neoplasm of splenic flexure (HCC)- Primary Malignant neoplasm of splenic flexure Liver lesion Other specified disorders of liver documented in this encounter Advance Directives * Full Code (Latest Code Status on File) Date Activated Date Inactivated Comments 09/16/2021 6:23 PM 09/19/2021 6:49 PM Question Answer Comments Discussion of Advance Directives occurred with: Not Discussed Does the patient have a Living Will? No Does the patient have Health Care Power of Attor michele? No Care Teams Game Farm Helper Relationship Specialty Start Date End Date Baljit Boateng DO [address] [place] [address] PCP - General Family Medicine 12/31/15 documented as of this encounter
--- OUTSIDE RECORDS SUMMARY | 2024-10-02 05:36 | External Medical Summary | Summary of Care ---
Author Name Unknown Organization [facility] Address [address] [facility] [place] [address] Phone [phone] Care Team Providers Care Building Drafting Officer Name Role Phone Baljit Boatengger Primary Care Provider Reason for Referral * Precert (Within 24 hrs (call dept; emergent)) - Authorized Specialty Diagnoses / Procedures Referred By Contac t Referred To Contact Radiology Diagnoses Malignant neoplasm of splenic flexure (HCC) Procedures PET CT SKULL BASE TO MID-THIGH FDG Rema Barraza CRNP [address] [address] Phone: tel: fax: Referral ID Status Reason Start Date Expiration Date V isits Requested Visits Authorized [id number] Authorized 06/26/2024 999 999 Reason for Visit * Reason Comments Follow Up Encounter Details Date Type Department Care Team (Late st Contact Info) Description 06/26/2024 4:00 PM EST Office Visit Hematology/Oncology [facility] [place] [address] [place] [phone] Rema Barraza CRNP [address] [place] [address] Malignant neoplasm of splenic flexure (HCC)* Allergies Active Allergy Reactions Criticality Noted Date Comments Penicillins 02/06/2001 rash documented as of this encounter (statuses as of 08/20/2024) Medications Lisinopril-Biola chlorothiazide 20-12.5 MG per tablet TAKE 1 TABLET DAILY. 30 Tab 5 6 Active Additional Information Patient not taking.Reported on 03/18/2024 Ascorbic Acid (VITAMIN C) 500 MG CAPSIndications: daily 1 Tablet . Active Multiple Vitamins-Mineral s (EMERGEN-C [employer]) PACKIndications: daily 1 Package . Active Fish [...] as of this encounter (statuses as of 08/20/2024) Active Problems Problem Noted Date Diagnosed Date [...] as of this encounter (statuses as of 08/20/2024) Resolved Problems Problem Noted Date Diagnosed Date Resolved Date Hypertensive heart disease 1 Overview (03/26/2009): Per Heart Failure Taxonomy Protocol. Dyslipidemia, goal to be determined 09/03/2010 documented as of this encounter (statuses as of 08/20/2024) Immunizations Name Administration Dates Next Due HIB [...] 3:44 PM EST [facility]ology[facility] [address] [place] [address] Name: Haresh Dogulas Date: 06/26/2024 CHIEF COMPLAINT: Haresh Douglas is [...] Dr. Carlitos Maloney Alternative medicine practitioner in [place], [place]. Iron deficiency anemia received Ferric Derisomaltose (Monoferric) x1 dose on 11/19/2021. Bilateral hydronephrosis (January 2024. Liver lesions Toenail fungal infection on the right side. 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 CURRENT TREATMENT: Reports that he is getting IV Vitamin C and Mistletoe (IV and weekly injections) near [place] Had been on hold x 3 weeks [...] urinary issues. HISTORY OF PRESENT ILLNESS: Haresh Douglas is a 73 year old male with a history as outlined above. Currently here for f/u visit today. Continues to be see in [place]--getting alternative therapy. Reviewed last PET scan with pt and . Past Medical History: Diagnosis Date Dyslipidemia, goal to be determined Hypertensive heart disease Past Surgical History: Procedure Laterality Date COLONOSCOPY ? for breight red blood ? polyps COLONOSCOPY, DIAGNOSTIC (RECTUM) 01/04/2016 adenomatous polyps, repeat 5 yrs/COLONOSCOPY FLEXIBLE PROXIMAL DIAGNOSTIC performed by Jeana Wayne MD at ENDOSCOPY [facility] COLONOSCOPY, DIAGNOSTIC (RECTUM) 08/16/2021 Severe stricture at the splenic flexure, diverticulosis / [facility] COLONOSCOPY, DIAGNOSTIC (RECTUM) 08/16/2021 invasive adenocarcinoma / [facility] COLONOSCOPY, DIAGNOSTIC (RECTUM) 09/30/2022 biopsies show adenomatous polps/recall 3 years/COLONOSCOPY FLEXIBLE PROXIMAL DIAGNOSTIC performed by Jeaan Wayne MD at ENDOSCOPY [facility] COLORECTAL CANCER SCREEN; COLON 05/14/2008 wnl LAPAROSCOPIC PART COLECTOMY W/COLOPROCTOSTOMY, COLOSTOMY N/A 09/16/2021 LAPAROSCOPIC PARTIAL COLECTOMY COLOPROCTOSTOMY AND COLOSTOMY performed by Pam Resendez MD at OR [facility] REMOVE TONSILS & ADENOIDS, AGE 12+ VASECTOMY [...] Dr. Carlitos Maloney Alternative medicine practitioner in [place], [place]. -Because of bilateral hydronephrosis, continue to [...] Description 08/26/2024 4:30 PM EDT Telemedicine Hematology/Oncology, [facility] [address] [facility] [place] [address] Rema Barraza CRNP [address] [facility] [place] [address] 12/25/2024 2:45 PM EDT Office Visit Urology, [facility] [address] [place] [phone] Bart Hollis MD [address] [address] Scheduled Procedures Name Priority Associated Diagnoses Date/Ti me COLONOSCOPY FLEXIBLE PROXIMA L DIAGNOSTIC Recall History of colonic polyps Health Maintenance Due Date Last Done Comments COVID-19 Vaccine (#1) 1955 Hepatitis C Screening 1966 Zoster Vaccines (1 of 2) 08/23/1967 DTap/Tdap Vaccines (1 - Tdap) 04/02/2008 04/01/2008 Depression Screening 03/13/2015 03/13/2014 Influenza Vaccine (FLU shot) (#1) 2024 04/17/2008 Colonoscopy 09/30/2025 09/30/2022, 05/09/2022, 08/16/2021, Additional history exists MENINGOCOCCAL (MENACTRA/MENVEO) Aged [...] this encounter Medical Devices Implanted Type Area Supervisor Type Disk Quality Control Device Identifier Shelf Expiration Date Model / Serial / Lot Sureclip 16mm 235cm - [id number] Implanted:Qty: 1 on 09/30/2022 by Jeana Wayne MD at ENDOSCOPY [facility] MICRO TECH ENDOSCOPY 07/27/2024 [id number] / / [id number] documented as of this encounter Procedures Procedure [...] CT SKULL BASE TO MID-THIGH FDG, ACC: [id number], dated 2024-04-02 08:24:32; CT CHEST_ABDOMEN_PELVIS WITH IV CONTRAST WITH ORAL CONTRAST, ACC: [id number], dated 2024-02-15 10:10:04 TECHNIQUE: The patient's fasting blood glucose was 106 mg/dL. Approximately 60 minutes following intravenous injection of 12 mCi 58-ghfsgg-2-deoxyglucose (FDG) within the right antecubital fossa, low [...] CT SKULL BASE TO MID-THIGH FDG, ACC: [id number], dated [id number]:24:32; CT CHEST_ABDOMEN_PELVIS WITH IV CONTRAST WITH ORAL CONTRAST, ACC:[id number], dated 2024-02-15 10:10:04 TECHNIQUE: The patient's fasting blood glucose was 106 mg/dL. Approximately 60minutes following intravenous injection of 12 mCi 97-owmepm-9-deoxyglucose(FDG) within the right antecubital fossa, low dose [...] mass within the pancreatic body. us Rema Barraza URSZULA RAD NUCLEAR MED Final Res ult * [...] LAB BLOOD ORDERABLES Kimberly l Result LABORATORY [facility] [address] [place] [address] * CEA (07/26/2024 7:53 AM EST) CEA 2.3 <=5.2 ng/mL 07/26/2024 5:08 PM EST LABORATORY [facility] Blood Venous blood specimen / Unknown Venipuncture / Unknown 07/26/2024 7:53 AM EST 07/26/2024 7:53 AM EST Rema SEAMAN LAB BLOOD ORDERABLES Kimberly l Result Performing Organization Address [facility] de Phone Number LABORATORY [facility] [address] [place] [address] documented in this encounter Visit Diagnoses Diagnosis [...] Power of Attor michele? No Care Teams Building Drafting Officer Relationship Specialty Start Date End Date Baljit Boateng DO [address] [place] [address] PCP - General Family Medicine 12/31/15 documented as of this encounter
--- OUTSIDE RECORDS SUMMARY | 2024-10-02 05:37 | External Medical Summary ---
Author Name Unknown Address Unknown Organization K01:LABORATORY [facility] [address] [place] [address] Laboratory Report Ordering Provider Test Date Status RADHA SALAS 07/26/2024 07:53:15 Final Cardiovascular Disease Risk Assessment
(Relative Risk)
<1.0 mg/L Low
1.0-3.0 mg/L Average
>3.0 mg/L High

*This table may not apply in certain inflammatory conditions. Observation Date Value Abnormality Reference (Units ) Status CRP, High-sensitivity 07/26/2024 07:53:15 3.83 Above high normal <=3.00 (mg/L) Final Performing Location LABORATORY [facility] - [address] [place] [address]
--- OUTSIDE RECORDS SUMMARY | 2024-10-02 05:37 | External Medical Summary ---
Author Name Unknown Address Unknown Organization [id number]:[facility] [address] [place] [address] Laboratory Report Ordering Provider Test Date Status BELEN KNOX 07/26/2024 07:53:15 Final Observation Date Value Abnormality Reference (Units ) Status CEA 07/26/2024 07:53:15 2.3 <=5.2 (ng/ mL) Final Performing Location [facility] - [address] [place] [address]
--- OUTSIDE RECORDS SUMMARY | 2024-10-02 05:37 | External Medical Summary ---
Author Name Unknown Address Unknown Organization [id number]:[facility] [place] - [address] [facility] [place] [address] Laboratory Report Ordering Provider Test Date Status BELEN KNOX 07/26/2024 07:53:15 Final Observation Date Value Abnormality Reference (Units ) Status SYNC LEUKOCYTES IN BLOOD BY AUTOMATED COUNT 07/26/2024 07:53:15 7.92 4.00-10.80 (K/uL) Final Segs 07/26/2024 07:53:15 63.1 40.0-75.0 (%) Final Lymphs % 07/26/2024 07:53:15 20.7 18.0-42.0 (%) Final Monos 07/26/2024 07:53:15 12.9 Above high normal 1.0-11.0 (%) Final Eosinophils 07/26/2024 07:53:15 1.9 0.0-6.0 (%) Final Basos 07/26/2024 07:53:15 1.0 0.0-2.0 (%) Final Immature Granulocyte, Percent 07/26/2024 07:53:15 0.4 0.0-2.0 (%) Final Absolute Segs 07/26/2024 07:53:15 5.00 1.80-7.70 (K/uL) Final Lymphs, absolute 07/26/2024 07:53:15 1.64 1.00-4.80 (K/ul) Final Monos, Abs 07/26/2024 07:53:15 1.02 0.00-1.10 (K/uL) Final Eos, Abs 07/26/2024 07:53:15 0.15 0.00-0.70 (K/uL) Final Basos, Abs 07/26/2024 07:53:15 0.08 0.00-0.20 (K/uL) Final Immature Granulocytes, Number 07/26/2024 07:53:15 0.03 0.00-0.20 (K/uL) Final Performing Location [facility] [place] - [address] [facility] [address]
--- OUTSIDE RECORDS SUMMARY | 2024-10-02 05:37 | External Medical Summary ---
Author Name Unknown Address Unknown Organization [id number]:[facility] [place] - [address] [facility] [facility] [address] [place] [address] Laboratory Report Ordering Provider Test Date Status MARITZARADHA 07/26/2024 07:53:15 Final Observation Date Value Abnormality Reference (Units ) Status Erythrocyte sedimentation rate by Photometric method 07/26/2024 07:53:15 14 <20 (mm/hour) Final Performing Location [facility] [place] [address] [place] [address]
--- OUTSIDE RECORDS SUMMARY | 2024-10-02 05:37 | External Medical Summary ---
Author Name Unknown Address Unknown Organization [id number][facility] - [address] [place] [address] Laboratory Report Ordering Provider Test Date Status RADHA SALAS 07/26/2024 07:53:15 Final Observation Date Value Abnormality Reference (Units ) Status LDH 07/26/2024 07:53:15 144 <=250 (U/L ) Final Performing Location [facility] - [address] [place] [address]
--- OUTSIDE RECORDS SUMMARY | 2024-10-02 05:37 | External Medical Summary ---
Author Name Unknown Address Unknown Organization [id number]:[facility] [place] - [address] [facility] [address] Laboratory Report Ordering Provider Test Date Status BELEN KNOX 07/26/2024 07:53:15 Final Observation Date Value Abnormality Reference (Units ) Status WBC, Total 07/26/2024 07:53:15 7.92 4.00-10.80 (K/uL) Final RBC 07/26/2024 07:53:15 4.35 4.50-5.25 (M/uL) Final Hemoglobin 07/26/2024 07:53:15 13.0 Below low normal 14.0-16.8 (g/dL) Final HCT 07/26/2024 07:53:15 42.0 40.0-48.4 (%) Final MCV 07/26/2024 07:53:15 96.6 82.0-99.5 (fL) Final MCH 07/26/2024 07:53:15 29.9 27.0-34.0 (pg) Final MCHC 07/26/2024 07:53:15 31.0 32.0-36.0 (g/dL) Final RDW 07/26/2024 07:53:15 15.1 11.5-15.5 (%) Final Platelets 07/26/2024 07:53:15 620 Above high normal 140-400 (K/uL) Final MPV 07/26/2024 07:53:15 11.4 6.6-11.1 (fL) Final Nucleated erythrocytes/100 leukocytes [Ratio] in Blood by Automated count 07/26/2024 07:53:15 0 <=0 (/100 WBCs) Final Performing Location [facility] [place] - [address] [facility] [address]
--- OUTSIDE RECORDS SUMMARY | 2024-10-02 05:37 | External Medical Summary | Summary of Care ---
Author Name Unknown Organization [facility] Address [address] [place] [address] Phone [phone] Care Team Providers Care Convertible Sofa Bedspring Tester Name Role Phone Baljit Boateng DO Primary Care Provider Reason for Visit * Reason Comments Outpatient Testing Encounter Details Date Type Department Care Team (Late st Contact Info) Description 07/26/2024 8:30 AM EST Laboratory Laboratory, [facility] [address] [place] [phone] [facility] [address] [place] [address] Malignant neoplasm of splenic flexure (HCC); Prerenal azotemia; Referral of patient without examination or treatment; Elevated C-reactive protein (CRP) Allergies Active Allergy Reactions Criticality Noted Date Comments Penicillins 02/06/2001 rash documented as of this encounter (statuses as of 08/02/2024) Medications Lisinopril-[place] chlorothiazide 20-12.5 MG per tablet TAKE 1 [...] as of this encounter (statuses as of 08/02/2024) Active Problems Problem Noted Date Diagnosed Date [...] as of this encounter (statuses as of 08/02/2024) Resolved Problems Problem Noted Date Diagnosed Date Resolved Date Hypertensive heart disease 1 Overview (03/26/2009): Per Heart Failure Taxonomy Protocol. Dyslipidemia, goal to be determined 09/03/2010 documented as of this encounter (statuses as of 08/02/2024) Immunizations Name Administration Dates Next Due HIB [...] Kay Kolb RN documented in this encounter Miscellaneous Notes * Result Encounter Note - Rema Barraza CRNP - 08/02/2024 9:13 AM EST Stable labs MSM documented in this encounter Plan of Treatment Upcoming Encounters Date Type Department Care Team (Late st Contact Info) Description 08/20/2024 8:45 AM EDT Imaging Radiology [address] 132 [facility] [place] [phone] 08/26/2024 4:30 PM EDT Telemedicine Hematology/Oncology, [facility] [address] [place] [address] Rema [facility]NP [facility] [phone] 12/25/2024 2:45 PM EDT Office Visit Urology, [facility] [address] [place] [address] Bart Hollis MD [address] [place] [address] Scheduled Procedures Name Priority Associated Diagnoses Date/Ti [...] this encounter Medical Devices Implanted Type Area [employer] Pilot Device Identifier Shelf Expiration Date Model / Serial / Lot Sureclip 16mm 235cm - [id number] Implanted:Qty: 1 on 09/30/2022 by Jeana Wayne MD at ENDOSCOPY [facility] MICRO TECH ENDOSCOPY 07/27/2024 [id number] / / [id number] documented as of this encounter Procedures Procedure Name Priority Date/Time Associated Diagnosis Comments DIFFERENTIAL, AUTOMATED Routine 07/26/2024 7:53 AM EST Malignant neoplasm of splenic flexure (HCC) CRP, HIGH SENSITIVITY (CARDIOVASCULAR RISK) Routine 07/26/2024 7:53 AM EST Prerenal azotemia Referral of patient without examination or treatment Elevated C-reactive protein (CRP) COMPREHENSIVE METABOLIC PANEL STAT 07/26/2024 7:53 AM EST Malignant neoplasm of splenic flexure (HCC) CBC Routine 07/26/2024 7:53 AM EST Malignant neoplasm of splenic flexure (HCC) LD Routine 07/26/2024 7:53 AM EST Prerenal azotemia Referral of patient without examination or treatment Elevated C-reactive protein (CRP) ERYTHROCYTE SEDIMENTATION RATE (ESR) Routine 07/26/2024 7:53 AM EST Prerenal azotemia Referral of patient without examination or treatment Elevated C-reactive protein (CRP) CBC Routine 07/26/2024 7:53 AM EST Malignant neoplasm of splenic flexure (HCC) CEA Routine 07/26/2024 7:53 AM EST Malignant neoplasm of splenic flexure (HCC) documented in this encounter Results * (ABNORMAL) DIFFERENTIAL, AUTOMATED (07/26/2024 7:53 AM EST) WBC 7.92 4.00 - 10.80 K/uL 07/26/2024 6:03 PM EST [facility] Neutrophils % 63.1 40.0 - 75.0 % 07/26/2024 6:03 PM EST [facility] Lymphocytes % 20.7 18.0 - 42.0 % 07/26/2024 6:03 PM EST [facility] Monocytes % 12.9(H) 1.0 - 11.0 % 07/26/2024 6:03 PM EST [facility] Eosinophils % 1.9 0.0 - 6.0 % 07/26/2024 6:03 PM EST [facility] Basophils % 1.0 0.0 - 2.0 % 07/26/2024 6:03 PM EST [facility] Immature Granulocytes % 0.4 0.0 - 2.0 % 07/26/2024 6:03 PM EST [facility] Absolute Neutrophils 5.00 1.80 - 7.70 K/uL 07/26/2024 6:03 PM EST [facility] Absolute Lymphocytes 1.64 1.00 - 4.80 K/ul 07/26/2024 6:03 PM EST [facility] Absolute Monocytes 1.02 0.00 - 1.10 K/uL 07/26/2024 6:03 PM EST [facility] Absolute Eosinophils 0.15 0.00 - 0.70 K/uL 07/26/2024 6:03 PM EST [facility] Absolute Basophils 0.08 0.00 - 0.20 K/uL 07/26/2024 6:03 PM EST [facility] Absolute Immature Granulocytes 0.03 0.00 - 0.20 K/uL 07/26/2024 6:03 PM EST [facility] Blood Venous blood specimen / Unknown Venipuncture / Unknown 07/26/2024 7:53 AM EST 07/26/2024 7:53 AM EST Rema SEAMAN LAB BLOOD ORDERABLES Kimberly chan Result [facility] [address] [place] [address] * (ABNORMAL) CBC (07/26/2024 7:53 AM EST) WBC 7.92 4.00 - 10.80 K/uL 07/26/2024 6:03 PM EST [facility] RBC 4.35 4.50 - 5.25 M/uL 07/26/2024 6:03 PM EST [facility] HGB 13.0(L) 14.0 - 16.8 g/dL 07/26/2024 6:03 PM EST [facility] HCT 42.0 40.0 - 48.4 % 07/26/2024 6:03 PM EST [facility] MCV 96.6 82.0 - 99.5 fL 07/26/2024 6:03 PM EST [facility] MCH 29.9 27.0 - 34.0 pg 07/26/2024 6:03 PM EST [facility] MCHC 31.0 32.0 - 36.0 g/dL 07/26/2024 6:03 PM EST [facility] RDW 15.1 11.5 - 15.5 % 07/26/2024 6:03 PM EST [facility] PLT 620(H) 140 - 400 K/uL 07/26/2024 6:03 PM EST LABORATORY [facility] [place] [place] MPV 11.4 6.6 - 11.1 fL 07/26/2024 6:03 PM EST LABORATORY [facility] [place] [place] nRBCs 0 <=0 /100 WBCs 07/26/2024 6:03 PM EST [facility] Blood Venous blood specimen / Unknown Venipuncture / Unknown 07/26/2024 7:53 AM EST 07/26/2024 7:53 AM EST Rema SEAMAN LAB BLOOD ORDERABLES Kimberly l Result Performing Organization Address City/[facility]/ZIP Co de Phone Number LABORATORY [facility] [place] [place] [address] [place] [address] * LD (07/26/2024 7:53 AM EST) LD 144 <=250 U/L 07/26/2024 5:0 3 PM EST [facility] Blood Venous blood specimen / Unknown Venipuncture / Unknown 07/26/2024 7:53 AM EST 07/26/2024 7:53 AM EST Yudy SEAMAN LAB BLOOD ORDERABLES F inal Result Performing Organization Address City/[facility] Co de Phone Number LABORATORY [facility] [place] [place] [address] [place] [address] * ERYTHROCYTE SEDIMENTATION RATE (ESR) (07/26/2024 7:53 AM EST) ESR 14 <20 mm/hour 07/26/2024 4:29 PM EST LABORATORY C Blood Venous blood specimen / Unknown Venipuncture / Unknown 07/26/2024 7:53 AM EST 07/26/2024 7:53 AM EST Yudy SEAMAN LAB BLOOD ORDERABLES F inal Result LABORATORY [facility] [place] [place] [address] [place] [address] * (ABNORMAL) CRP, HIGH SENSITIVITY (CARDIOVASCULAR RISK) (07/26/2024 7:53 AM EST) Pathologist [facility] CRP, High Sensitivity (Cardiovascular Risk) 3.83(H) <=3.00 mg/L 07/26/2024 5:03 PM EST LABORATORY [facility] [place] [place] Blood Venous blood specimen / Unknown Venipuncture / Unknown 07/26/2024 7:53 AM EST 07/26/2024 7:53 AM EST Narrative LABORATORY [facility] [place] [place] - 07/26/2024 5:03 PM EST Cardiovascular Disease Risk Assessment (Relative Risk) <1.0 mg/L Low 1.0-3.0 mg/L Average >3.0 mg/L High *This table may not apply in certain inflammatory conditions. Yudy ALLENNP LAB BLOOD ORDERABLES F inal Result LABORATORY [facility] [place] [place] [address] [place] [address] * (ABNORMAL) COMPREHENSIVE METABOLIC PANEL (07/26/2024 7:53 AM EST) [facility] BUN 21(H) 6 - 20 mg/dL 07/26/2024 5:03 PM EST LABORATORY [facility] [place] [place] CREATININE 1.2 0.6 - 1.2 mg/dL 07/26/2024 5:03 PM EST LABORATORY [facility] [place] [place] EGFR 66 >=60 mL/min 07/26/2024 5:03 PM EST LABORATORY [facility] [place] [place] Comment:eGFR is calculated b ased on the CKD-EPI 2020 equation. SODIUM 139 135 - 146 mmol/L 07/26/2024 5:03 PM EST [facility] POTASSIUM 4.4 3.5 - 5.1 mmol/L 07/26/2024 5:03 PM EST LABORATORY [facility] [place] [place] CHLORIDE 100 98 - 107 mmol/L 07/26/2024 5:03 PM EST LABORATORY GM CO2 23 22 - 32 mmol/L 07/26/2024 5:03 PM EST LABORATORY [facility] [place] [place] ANION GAP 16(H) 7 - 15 mmol/L [...] 7:53 AM EST 07/26/2024 7:53 AM EST us Rema SEAMAN LAB BLOOD ORDERABLES Kimberly l Result LABORATORY [facility] [place] [place] [address] [place] [address] * CEA (07/26/2024 7:53 AM EST) CEA 2.3 <=5.2 ng/mL 07/26/2024 5:08 PM EST LABORATORY [facility] [place] [place] Blood Venous blood specimen / Unknown Venipuncture / Unknown 07/26/2024 7:53 AM EST 07/26/2024 7:53 AM EST Rema SEAMAN LAB BLOOD ORDERABLES Kimberly l Result LABORATORY [facility] [place] [place] [address] [place] [address] documented in this encounter Visit Diagnoses Diagnosis Malignant neoplasm of splenic flexure (HCC) Malignant neoplasm of splenic flexure Prerenal azotemia Other symptoms involving urinary system Referral of patient without examination or treatment Elevated C-reactive protein (CRP) documented in this encounter Advance Directives * Full Code (Latest Code Status on File) Date Activated Date Inactivated Comments 09/16/2021 6:23 PM 09/19/2021 6:49 PM Question Answer Comments Discussion of Advance Directives occurred with: Not Discussed Does the patient have a Living Will? No Does the patient have Health Care Power of Attor michele? No Care Teams Convertible Sofa Bedspring Tester Relationship Specialty Start Date End Date Baljit Boateng DO [address] [facility] [place] [address] PCP - General Family Medicine 12/31/15 documented as of this encounter
--- OUTSIDE RECORDS SUMMARY | 2024-10-02 05:37 | External Medical Summary | Summary of Care ---
Author Name Unknown Organization [facility] Address [address] [place] [address] Phone [phone] Care Team Providers Care Practical Nurse Clinical Coordinator Name Role Phone Baljit Boateng DO Primary Care Provider Reason for Visit * Reason Comments Outpatient Testing Encounter Details Date Type Department Care Team (Late st Contact Info) Description 07/26/2024 8:30 AM EST Laboratory Laboratory, [facility] [address] [place] [phone] [facility] [address] [place] [address] Malignant neoplasm of splenic flexure (HCC); Prerenal azotemia; Referral of patient without examination or treatment; Elevated C-reactive protein (CRP) Allergies Active Allergy Reactions Criticality Noted Date Comments Penicillins 02/06/2001 rash documented as of this encounter (statuses as of 07/26/2024) Medications Lisinopril-[place] chlorothiazide 20-12.5 MG per tablet TAKE 1 [...] as of this encounter (statuses as of 07/26/2024) Active Problems Problem Noted Date Diagnosed Date [...] as of this encounter (statuses as of 07/26/2024) Resolved Problems Problem Noted Date Diagnosed Date Resolved Date Hypertensive heart disease 1 Overview (03/26/2009): Per Heart Failure Taxonomy Protocol. Dyslipidemia, goal to be determined 09/03/2010 documented as of this encounter (statuses as of 07/26/2024) Immunizations Name Administration Dates Next Due HIB [...] Kay Kolb RN documented in this encounter Plan of Treatment Upcoming Encounters Date Type Department Care Team (Late st Contact Info) Description 08/20/2024 8:45 AM EDT Imaging Radiology [facility] [address] [facility] 132 [facility] [place] [phone] 08/28/2024 5:00 PM EDT Telemedicine Hematology/Oncology [facility] [phone] Rema Barraza CRNP 400 [facility] [place] [address] 12/25/2024 2:45 PM EDT Office Visit Urology, [facility] [address] [place] [address] Bart Hollis MD [address] [place] [phone] Pending Results Name Type Priority Associated Diagnoses Date /Time CEA Lab Routine Malignant neoplasm of splenic flexure (HCC) 07/26/2024 7:53 AM EST COMPREHENSIVE METABOLIC PANEL Lab STAT Malignant neoplasm of splenic flexure (HCC) 07/26/2024 7:53 AM EST CBC WITH WBC DIFFERENTIAL Lab Routine Malignant neoplasm of splenic flexure (HCC) 07/26/2024 7:53 AM EST CRP, HIGH SENSITIVITY (CARDIOVASCULAR RISK) Lab Routine Prerenal azotemia Referral of patient without examination or treatment Elevated C-reactive protein (CRP) 07/26/2024 7:53 AM EST ERYTHROCYTE SEDIMENTATION RATE (ESR) Lab Routine Prerenal azotemia Referral of patient without examination or treatment Elevated C-reactive protein (CRP) 07/26/2024 7:53 AM EST LD Lab Routine Prerenal azotemia Referral of patient without examination or treatment Elevated C-reactive protein (CRP) 07/26/2024 7:53 AM EST CBC Lab Routine Malignant neoplasm of splenic flexure (HCC) 07/26/2024 7:53 AM EST DIFFERENTIAL, AUTOMATED Lab Routine Malignant neoplasm of splenic flexure (HCC) 07/26/2024 7:53 AM EST Scheduled Procedures Name Priority Associated Diagnoses Date/Ti me COLONOSCOPY FLEXIBLE PROXIMA L DIAGNOSTIC Recall History of colonic polyps Health Maintenance Due Date Last Done Comments COVID-19 Vaccine (#1) 1955 Hepatitis C Screening 1966 Zoster Vaccines (1 of 2) 08/23/1967 DTap/Tdap Vaccines (1 - Tdap) 04/02/2008 04/01/2008 Depression Screening 03/13/2015 03/13/2014 Influenza Vaccine (FLU shot) (#1) 2024 04/17/2008 Colonoscopy 09/30/2025 09/30/2022, 0509/2022, 08/16/2021, Additional history exists MENINGOCOCCAL (MENACTRA/MENVEO) Aged [...] this encounter Medical Devices Implanted Type Area Negative Assembler Device Identifier Shelf Expiration Date Model / Serial / Lot Sureclip 16mm 235cm - [id number] Implanted:Qty: 1 on 09/30/2022 by Jeana Wayne MD at ENDOSCOPY [facility] MICRO TECH ENDOSCOPY 07/27/2024 [id number] / / [id number] documented as of this encounter Visit Diagnoses [...] Power of Attor michele? No Care Teams Practical Nurse Clinical Coordinator Relationship Specialty Start Date End Date Baljit Boateng DO [address] [place] [address] PCP - General Family Medicine 12/31/15 documented as of this encounter
--- OUTSIDE RECORDS SUMMARY | 2024-10-02 05:37 | External Medical Summary | Summary of Care ---
Author Name Unknown Organization [facility] Address [address] [place] [address] Phone [phone] Care Team Providers Care Recreation Activities Coordinator Name Role Phone Baljit Boateng DO Primary Care Provider Reason for Visit * Reason Comments Outpatient Testing Encounter Details Date Type Department Care Team (Late st Contact Info) Description 07/26/2024 8:30 AM EST Laboratory Laboratory, [facility] [address] [place] [phone] [facility] [address] [place] [address] Malignant neoplasm of splenic flexure (HCC); Prerenal azotemia; Referral of patient without examination or treatment; Elevated C-reactive protein (CRP) Allergies Active Allergy Reactions Criticality Noted Date Comments Penicillins 02/06/2001 rash documented as of this encounter (statuses as of 07/26/2024) Medications Lisinopril-[place] chlorothiazide 20-12.5 MG per tablet TAKE 1 [...] Description 08/20/2024 8:45 AM EDT Imaging Radiology [facility]st [facility] 132 [facility] [place] [phone] 08/28/2024 5:00 PM EDT Telemedicine Hematology/Oncology [facility] [phone] Rema Barraza CRNP 400 [facility] [place] [address] 12/25/2024 2:45 PM EDT Office Visit Urology, [facility] [address] [place] [address] Bart Hollis MD [address] [place] [address] Pending Results Name Type Priority Associated Diagnoses [...] this encounter Medical Devices Implanted Type Area Vendor Management Associate Device Identifier Shelf Expiration Date Model / Serial / Lot Sureclip 16mm 235cm - [id number] Implanted:Qty: 1 on 09/30/2022 by Jeana Wayne MD at ENDOSCOPY [facility] MICRO TECH ENDOSCOPY 07/27/2024 [id number] / / [id number] documented as of this encounter Visit Diagnoses [...] Power of Attor michele? No Care Teams Recreation Activities Coordinator Relationship Specialty Start Date End Date Baljit Boateng DO [address] [place] [address] PCP - General Family Medicine 12/31/15 documented as of this encounter
--- OUTSIDE RECORDS SUMMARY | 2024-10-02 05:37 | External Medical Summary | Summary of Care ---
Author Name Unknown Organization [facility] Address [address] [place] [address] Phone [phone] Care Team Providers Care Junior Art Director Name Role Phone Baljit Boatengger DO Primary Care Provider Reason for Visit * Reason Onset Date Comments Advice 05/01/2024 Encounter Details Date Type Department Care Team (Late st Contact Info) Description 05/01/2024 Telephone Hematology/Oncology [facility] [place] 200 [facility] [place] [phone] Jimmy Perez MD 200 [facility] [place] [address] Advice Allergies Active Allergy Reactions Criticality Noted Date Comments Penicillins 02/06/2001 rash documented as of this encounter (statuses as of 08/01/2024) Medications Lisinopril-[place] chlorothiazide 20-12.5 MG per tablet TAKE 1 [...] 40 mg in the morning. 11.2 mL Active Additional Information Patient not taking.Reported on [...] as of this encounter (statuses as of 08/01/2024) Active Problems Problem Noted Date Diagnosed Date [...] as of this encounter (statuses as of 08/01/2024) Resolved Problems Problem Noted Date Diagnosed Date Resolved Date Hypertensive heart disease 1 Overview (03/26/2009): Per Heart Failure Taxonomy Protocol. Dyslipidemia, goal to be determined 09/03/2010 documented as of this encounter (statuses as of 08/01/2024) Immunizations Name Administration Dates Next Due HIB [...] encounter Miscellaneous Notes * Telephone Encounter - Suhail De Los Santos OSA - 05/01/2024 1:34 PM EST Patient's , Pam is calling and is requesting a call back from the front office manager. documented in this encounter Plan of Treatment Upcoming Encounters Date Type Department Care Team (Late st Contact Info) Description 08/20/2024 8:45 AM EDT Imaging Radiology [address] 132 [facility] [place] [phone] 08/26/2024 4:30 PM EDT Telemedicine Hematology/Oncology, [facility] 400 [place] [address] Rema Barraza CRNP [address] [place] [address] 12/25/2024 2:45 PM EDT Office Visit Urology, [facility] 132 [facility] [place] [address] Bart Hollis MD 27 [place] [address] Scheduled Procedures Name Priority Associated Diagnoses Date/Ti [...] this encounter Medical Devices Implanted Type Area Music Cataloguer Device Identifier Shelf Expiration Date Model / Serial / Lot Sureclip 16mm 235cm - [id number] Implanted:Qty: 1 on 09/30/2022 by Jeana Wayne MD at ENDOSCOPY [facility] MICRO TECH ENDOSCOPY 07/27/2024 [id number] / / [id number] documented as of this encounter Advance Directives * Full Code (Latest Code Status on File) Date Activated Date Inactivated Comments 09/16/2021 6:23 PM 09/19/2021 6:49 PM Question Answer Comments Discussion of Advance Directives occurred with: Not Discussed Does the patient have a Living Will? No Does the patient have Health Care Power of Attor michele? No Care Teams Junior Art Director Relationship Specialty Start Date End Date Baljit Boateng DO [address] [place] [address] PCP - General Family Medicine 12/31/15 documented as of this encounter
[2024-10-02 08:01] LABS: Hematocrit (blood only) 28.3 % (42.0-52.0); Hemoglobin 9.5 g/dl (14.0-18.0)
--- NOTE | 2024-10-02 08:31 | Hospitalist Progress Note ---
Date of Service October 02, 2024 Assessment & Plan (1) Acute lower GI bleeding: (2) Adenocarcinoma: (3) Symptomatic hypotension: Plan Patient is a 74-year-old male with past medical history of hypertension, OA, and colon cancer presented due to significant rectal bleeding that began at 6 PM. 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 He is now s/p partial left hemicolectomy, splenectomy, and Julio Cesar pancreatectomy resection at [facility] who has since opted for homeopathic treatment rather than chemoradiation. He is on [place], mistletoe, and vitamin C. Patient had approximately a 5 point drop in his hemoglobin after several episodes of diffuse rectal bleeding along with associated symptomatic hypotension. Blood pressure has improved after IV fluids and patient has 2 units PRBC ordered and currently transfusing this unit. Will trial FFP to reduce the bleeding given patient is on fibrinolytic supplement, and feels tired reduce bleeding, patient will need transfer to tertiary care center for IR guided embolization. #lower GI bleed/Hx adenocarcinoma - Suspected TIC. Hgb dropped from 15.3 to 10.5, PLT stable, coag panel WNL. Patient is on [place] which is a fibrinolytic supplement. APCT shows concern for nonspecific colitis vs residual neoplasm and liver masses and small amount of ascites, otherwise postsurgical changes. Patient was initially unstable with symptomatic hypotension, reported 77/48. Hypotension resolved after IVF in ED. - Hemoccult pending however diffuse bright red blood in stool - 2 units PRBC ordered and transfusing; blood consents signed at bedside - Check H&H in between units and every 4 hours - 1U FFP ordered transferred to tertiary care center for IR guided embolization has been on hold since patient is stable for now - Bowel rest, n.p.o., hold p.o. medications #HTN hypotensive on arrival - Holding lisinopril with hypotension and bowel rest VTE ppx: SCDs, defer chemical PPx with active bleeding Dispo: PCU versus transfer Admission and Anticipated Discharge Date Admission Date: October 02, 2024 Subjective Pt was seen and evaluated, chart reviewed. No BM since arrival to the ICU. Suggests last output w/ blood was while in the ED. Some abdominal discomfort w/ positional changes. Otherwise denies pain. No nausea/vomiting. HGB 9.5 S/P 2 units RBC, 1 FFP BUN 22/REGIONAL SERVICE MANAGER 1 CTAP 2024: Interval resection the splenic flexure site of previously demonstrated thickening. Interval splenectomy. Wall thickening of the mid to distal transverse colon to the anastomotic sutures with collapse of the colon distally. Mild wall left and sigmoid colon wall thickening. Considerations include nonspecific colitis versus recurrent or residual neoplasm. Ventral abdo evens pelvic incision scar with associated nonobstructing bowel containing hernia. Distal rectal wall thickening. Multiple small enhancing vessels adjacent to the rectum, possibly varicosities. Small amount of ascites. Interval development of numerous liver masses, most suspicious for metastatic disease. Redemonstrated multiple simple and complex cyst versus solid masses, similar to the prior study. Recommend correlation to prior images to determine stability. Interval development of severe bilateral hydronephrosis and diffuse hydroureter without obstructing calculus. Partially contracted urinary bladder with diffuse wall thickening, possibly related to enlarged prostate gland. Otherwise no change. Colonoscopy 2022: - Two 3 to 5 mm polyps in the transverse colon and in the ascending colon, removed with a cold snare. Resected and retrieved.The examination was otherwise normal. Colonoscopy 2021: - Severe stricture at the splenic flexure of unclear etiology, r/o malignancy Vs healing after prior ischemic colitis. Biopsied. Tattooed. - Diverticulosis in the sigmoid colon. - Non-bleeding internal hemorrhoids. Patient report no more bleeding . GI will do flexible sigmoidoscopy Physical Exam Physical Exam: Constitutional: WD/WN, vitals as a juana Respiratory: normal respiratory effort Cardiovascular: Rate/Rhythm: regul ar rate and regula r rhythm Gastrointestinal ( Abdomen): normal bowel sound s, soft, nontender , no hepatosplenom egaly Skin: no rashes, warm an d dry Results & Data Results & Data Vital Signs (Past 12 Hours) Vital Signs Temp Pulse Pulse Resp BP BP Pulse Ox 10/02/24 08:00 10/02/24 08:00 57 L 10/02/24 07:00 36.7 C 58 L 18 179/85 H 97 10/02/24 06:30 166/83 H 10/02/24 06:18 57 L 18 97 10/02/24 06:00 57 L 12 98 10/02/24 06:00 36.7 C 55 L 15 166/83 H 98 10/02/24 05:53 36.6 C 55 L 16 152/76 H 97 10/02/24 05:40 36.7 C 55 L 16 152/76 H 98 10/02/24 05:00 152/76 H 10/02/24 05:00 152/76 H 10/02/24 04:57 55 L 16 95 10/02/24 04:40 36.9 C 55 L 19 134/72 99 10/02/24 04:38 134/72 10/02/24 04:38 134/72 10/02/24 04:36 59 L 17 97 10/02/24 04:10 36.7 C 57 L 18 160/70 H 10/02/24 04:03 55 L 17 97 10/02/24 04:00 160/70 H 10/02/24 03:58 140/80 10/02/24 03:58 140/80 10/02/24 03:57 55 L 17 98 10/02/24 03:55 36.7 C 56 L 18 137/90 10/02/24 03:40 137/90 10/02/24 03:39 58 L 16 10/02/24 03:39 37.1 C 58 L 18 137/90 96 10/02/24 03:00 129/67 10/02/24 03:00 129/67 10/02/24 03:00 54 L 15 10/02/24 02:57 36.4 C 55 L 16 145/87 H 97 10/02/24 02:12 59 L 20 99 10/02/24 02:05 36.7 C 56 L 19 138/78 97 10/02/24 02:00 138/78 10/02/24 02:00 138/78 10/02/24 01:45 150/88 H 10/02/24 01:45 150/88 H 10/02/24 01:30 59 L 19 154/87 H 97 10/02/24 01:22 36.7 C 59 L 19 144/78 H 96 10/02/24 01:15 58 L 20 144/78 H 97 10/02/24 01:15 59 L 19 144/78 H 98 10/02/24 01:02 36.6 C 59 L 13 146/83 H 97 10/02/24 01:00 60 19 146/83 H 97 10/02/24 00:50 124/69 10/02/24 00:50 36.6 C 64 20 124/69 97 10/02/24 00:45 59 L 16 133/73 97 10/02/24 00:30 60 17 149/77 H 95 10/02/24 00:20 36.6 C 60 20 149/77 H 95 10/02/24 00:15 57 L 20 130/69 95 10/02/24 00:05 36.6 C 60 19 136/76 97 10/02/24 00:00 57 L 14 141/76 H 95 10/02/24 00:00 59 L 20 141/76 H 94 10/01/24 23:50 36.4 C L 58 L 16 162/81 H 96 10/01/24 23:45 60 15 162/81 H 96 10/01/24 23:30 63 18 148/77 H 98 10/01/24 23:21 73 18 99/67 L 100 10/01/24 23:20 55 L 22 75/49 L 100 10/01/24 23:20 75 22 75/49 L 100 10/01/24 23:15 66 17 124/76 99 10/01/24 23:13 66 17 124/76 99 10/01/24 23:00 61 16 155/81 H 97 10/01/24 22:31 55 L 15 151/80 H 98 10/01/24 22:09 54 L 19 97 10/01/24 21:44 61 18 151/88 H 98 10/01/24 21:41 68 10/01/24 21:31 61 17 151/88 H 98 10/01/24 21:19 60 17 97 10/01/24 21:17 36.8 C 75 17 156/90 H 98 O2 Del Method O2 Flow Rate 10/02/24 08:00 Nasal Cannula 3 10/02/24 08:00 10/02/24 07:00 Room Air 10/02/24 06:30 10/02/24 06:18 10/02/24 06:00 10/02/24 06:00 Room Air 10/02/24 05:53 10/02/24 05:40 10/02/24 05:00 10/02/24 05:00 10/02/24 04:57 10/02/24 04:40 10/02/24 04:38 10/02/24 04:38 10/02/24 04:36 10/02/24 04:10 10/02/24 04:03 10/02/24 04:00 10/02/24 03:58 10/02/24 03:58 10/02/24 03:57 10/02/24 03:55 10/02/24 03:40 10/02/24 03:39 10/02/24 03:39 10/02/24 03:00 10/02/24 03:00 10/02/24 03:00 10/02/24 02:57 Room Air 10/02/24 02:12 10/02/24 02:05 Room Air 10/02/24 02:00 10/02/24 02:00 10/02/24 01:45 10/02/24 01:45 10/02/24 01:30 Room Air 10/02/24 01:22 10/02/24 01:15 Room Air 10/02/24 01:15 10/02/24 01:02 10/02/24 01:00 Room Air 10/02/24 00:50 10/02/24 00:50 10/02/24 00:45 Room Air 10/02/24 00:30 Room Air 10/02/24 00:20 10/02/24 00:15 Room Air 10/02/24 00:05 10/02/24 00:00 Room Air 10/02/24 00:00 Room Air 10/01/24 23:50 10/01/24 23:45 Room Air 10/01/24 23:30 Room Air 10/01/24 23:21 Room Air 10/01/24 23:20 Room Air 10/01/24 23:20 Room Air 10/01/24 23:15 Room Air 10/01/24 23:13 Room Air 10/01/24 23:00 Room Air 10/01/24 22:31 Room Air 10/01/24 22:09 Room Air 10/01/24 21:44 Room Air 10/01/24 21:41 10/01/24 21:31 Room Air 10/01/24 21:19 Room Air 10/01/24 21:17 Room Air PG Care Time/CCT Total # of Minutes Spent Total Time Spent with Patient: Total time spent is greater than 50% in coordination of care (as documented) at patient's floor/unit and/or counseling patient: Coding Level of Care Code 97325 SUB INP/OBS CARE 3/50MIN Diagnoses Acute lower GI bleeding K92.2 Adenocarcinoma C80.1 Symptomatic hypotension I95.9 Time Spent (min) 50
--- NOTE | 2024-10-02 09:38 | Gastroenterology Progress Note ---
Date of Service October 02, 2024 Assessment & Plan (1) Acute lower GI bleeding: Plan: 74 year old male with history of dyslipidemia, renal insufficiency, splenic flexure adenocarcinoma s/p resection on IV Vitamin C and Mistletoe managed through Dr. Carlitos Maloney Alternative medicine practitioner in [place], [place] w/ known metastatic diseased admitted w/ rectal bleeding. CT w/ resection the splenic flexure site, some wall thickening of the mid to distal transverse colon to the anastomotic, mild wall left and sigmoid colon wall thickening, rectal wall thickening w/ small enhancing vessels adjacent to the rectum, numerous liver masses No episodes of rectal bleeding since admission to the ICU and he remained hemodynamically stable. Will discuss w/ attending but if remains hemodynamically stable will start liquids today and plan for colonoscopy tomorrow after a golytely prep. If bleeding returns and is hemodynamically unstable recommend stat CTA / GI bleeding scan at that time w/ a transfer to a center w/ IR capability. I spent a total of 40 minutes on the date of service in review of patient's record, and previously obtained information in person and appropriate medical visit, discussion and education of plan, with patient and/or caregiver, placing orders for tests/referral/procedures as medically necessary and documentation of pertinent clinical information in patient's medical records for their visit today. Admission and Anticipated Discharge Date Admission Date: October 02, 2024 Supervising Physician Co-Signing Physician Notes I personally saw and examined the patient. I have reviewed the chart and agree with the documentation provided by the INFRASTRUCTURE CONSULTANT including discussion about the assessment, treatment and plan. Briefly, no further bleeding overnight just old blood that was dark per patient. There were just some clots with it as well. Hemoglobin has stayed at 9.[address] is unrevealing as far as active bleeding site. There is some colitis noted and enhancing vessels adjacent to the rectum and of course know numerous liver masses. Differential for his bleeding is diverticular versus hemorrhoidal versus rectal varices versus ischemic colitis or another colonic mass, versus brisk upper GI bleeding. PPI twice daily for now and prep and we will take a look via an EGD and colonoscopy tomorrow Subjective Pt was seen and evaluated, chart reviewed. No BM since arrival to the ICU. Suggests last output w/ blood was while in the ED. Some abdominal discomfort w/ positional changes. Otherwise denies pain. No nausea/vomiting. HGB 9.5 S/P 2 units RBC, 1 FFP BUN 22/ASSOCIATE PROGRAM MANAGER 1 CTAP 2024: Interval resection the splenic flexure site of previously demonstrated thickening. Interval splenectomy. Wall thickening of the mid to distal transverse colon to the anastomotic sutures with collapse of the colon distally. Mild wall left and sigmoid colon wall thickening. Considerations include nonspecific colitis versus recurrent or residual neoplasm. Ventral abdominal pelvic incision scar with associated nonobstructing bowel containing hernia. Distal rectal wall thickening. Multiple small enhancing vessels adjacent to the rectum, possibly varicosities. Small amount of ascites. Interval development of numerous liver masses, most suspicious for metastatic disease. Redemonstrated multiple simple and complex cyst versus solid masses, similar to the prior study. Recommend correlation to prior images to determine stability. Interval development of severe bilateral hydronephrosis and diffuse hydroureter without obstructing calculus. Partially contracted urinary bladder with diffuse wall thickening, possibly related to enlarged prostate gland. Otherwise no change. Colonoscopy 2022: - Two 3 to 5 mm polyps in the transverse colon and in the ascending colon, removed with a cold snare. Resected and retrieved.The examination was otherwise normal. Colonoscopy 2021: - Severe stricture at the splenic flexure of unclear etiology, r/o malignancy Vs healing after prior ischemic colitis. Biopsied. Tattooed. - Diverticulosis in the sigmoid colon. - Non-bleeding internal hemorrhoids. Review of Systems Review of Systems: All other findings negative except as noted in HPI. Physical Exam Constitutional: WD/WN, vitals as above Respiratory: normal respiratory effort Cardiovascular: Rate/Rhythm: regular rate and regular rhythm Gastrointestinal (Abdomen): normal bowel sounds, soft, nontender, no hepatosplenomegaly Skin: no rashes, warm and dry Results & Data Results & Data Vital Signs (Past 12 Hours) Vital Signs Temp Pulse Pulse Resp BP BP Pulse Ox 10/02/24 08:00 10/02/24 08:00 57 L 10/02/24 07:00 98.1 F 58 L 18 179/85 H 97 10/02/24 06:30 166/83 H 10/02/24 06:18 57 L 18 97 10/02/24 06:00 57 L 12 98 10/02/24 06:00 98.1 F 55 L 15 166/83 H 98 10/02/24 05:53 97.9 F 55 L 16 152/76 H 97 10/02/24 05:40 98.1 F 55 L 16 152/76 H 98 10/02/24 05:00 152/76 H 10/02/24 05:00 152/76 H 10/02/24 04:57 55 L 16 95 10/02/24 04:40 98.4 F 55 L 19 134/72 99 10/02/24 04:38 134/72 10/02/24 04:38 134/72 10/02/24 04:36 59 L 17 97 10/02/24 04:10 98.1 F 57 L 18 160/70 H 10/02/24 04:03 55 L 17 97 10/02/24 04:00 160/70 H 10/02/24 03:58 140/80 10/02/24 03:58 140/80 10/02/24 03:57 55 L 17 98 10/02/24 03:55 98.1 F 56 L 18 137/90 10/02/24 03:40 137/90 10/02/24 03:39 58 L 16 10/02/24 03:39 98.7 F 58 L 18 137/90 96 10/02/24 03:00 129/67 10/02/24 03:00 129/67 10/02/24 03:00 54 L 15 10/02/24 02:57 97.6 F 55 L 16 145/87 H 97 10/02/24 02:12 59 L 20 99 10/02/24 02:05 98.1 F 56 L 19 138/78 97 10/02/24 02:00 138/78 10/02/24 02:00 138/78 10/02/24 01:45 150/88 H 10/02/24 01:45 150/88 H 10/02/24 01:30 59 L 19 154/87 H 97 10/02/24 01:22 98.1 F 59 L 19 144/78 H 96 10/02/24 01:15 58 L 20 144/78 H 97 10/02/24 01:15 59 L 19 144/78 H 98 10/02/24 01:02 97.9 F 59 L 13 146/83 H 97 10/02/24 01:00 60 19 146/83 H 97 10/02/24 00:50 124/69 10/02/24 00:50 97.8 F 64 20 124/69 97 10/02/24 00:45 59 L 16 133/73 97 10/02/24 00:30 60 17 149/77 H 95 10/02/24 00:20 98 F 60 20 149/77 H 95 10/02/24 00:15 57 L 20 130/69 95 10/02/24 00:05 98 F 60 19 136/76 97 10/02/24 00:00 57 L 14 141/76 H 95 10/02/24 00:00 59 L 20 141/76 H 94 10/01/24 23:50 97.5 F L 58 L 16 162/81 H 96 10/01/24 23:45 60 15 162/81 H 96 10/01/24 23:30 63 18 148/77 H 98 10/01/24 23:21 73 18 99/67 L 100 10/01/24 23:20 55 L 22 75/49 L 100 10/01/24 23:20 75 22 75/49 L 100 10/01/24 23:15 66 17 124/76 99 10/01/24 23:13 66 17 124/76 99 10/01/24 23:00 61 16 155/81 H 97 10/01/24 22:31 55 L 15 151/80 H 98 10/01/24 22:09 54 L 19 97 10/01/24 21:44 61 18 151/88 H 98 10/01/24 21:41 68 O2 Del Method O2 Flow Rate 10/02/24 08:00 Nasal Cannula 3 10/02/24 08:00 10/02/24 07:00 Room Air 10/02/24 06:30 10/02/24 06:18 10/02/24 06:00 10/02/24 06:00 Room Air 10/02/24 05:53 10/02/24 05:40 10/02/24 05:00 10/02/24 05:00 10/02/24 04:57 10/02/24 04:40 10/02/24 04:38 10/02/24 04:38 10/02/24 04:36 10/02/24 04:10 10/02/24 04:03 10/02/24 04:00 10/02/24 03:58 10/02/24 03:58 10/02/24 03:57 10/02/24 03:55 10/02/24 03:40 10/02/24 03:39 10/02/24 03:39 10/02/24 03:00 10/02/24 03:00 10/02/24 03:00 10/02/24 02:57 Room Air 10/02/24 02:12 10/02/24 02:05 Room Air 10/02/24 02:00 10/02/24 02:00 10/02/24 01:45 10/02/24 01:45 10/02/24 01:30 Room Air 10/02/24 01:22 10/02/24 01:15 Room Air 10/02/24 01:15 10/02/24 01:02 10/02/24 01:00 Room Air 10/02/24 00:50 10/02/24 00:50 10/02/24 00:45 Room Air 10/02/24 00:30 Room Air 10/02/24 00:20 10/02/24 00:15 Room Air 10/02/24 00:05 10/02/24 00:00 Room Air 10/02/24 00:00 Room Air 10/01/24 23:50 10/01/24 23:45 Room Air 10/01/24 23:30 Room Air 10/01/24 23:21 Room Air 10/01/24 23:20 Room Air 10/01/24 23:20 Room Air 10/01/24 23:15 Room Air 10/01/24 23:13 Room Air 10/01/24 23:00 Room Air 10/01/24 22:31 Room Air 10/01/24 22:09 Room Air 10/01/24 21:44 Room Air 10/01/24 21:41 Laboratory Results 10/02/24 10/02/24 10/02/24 Range/Units 07:48 03:05 03:05 WBC (4.8-10.8) K/ul RBC (4.70-6.10) M/uL Hgb 9.5 L Cancelled (14.0-18.0) g/dl POC Hgb (14.0-18.0) g/dl Hct 28.3 L Cancelled 30.5 L (42.0-52.0) % POC Hct (42-52) % MCV 87.1 (80.0-100.0) fL MCH 28.9 (25.0-34.0) pg MCHC 33.1 (32.0-36.0) g/dL RDW Std Deviation 58.1 H (36.4-46.3) fL RDW Coeff of Karla 18.2 H (11.5-14.5) % Plt Count 372 (130-400) K/uL MPV 10.5 (9.4-12.4) fL Immature Gran % (Auto) 0.5 % Neut % (Auto) 78.8 % Lymph % (Auto) 12.5 % Piute % (Auto) 7.7 % Eos % (Auto) 0.2 % Baso % (Auto) 0.3 % Neut # (Auto) 8.03 H (1.40-6.50) K/uL Lymph # (Auto) 1.27 (1.20-3.40) K/uL [place] # (Auto) 0.78 H (0.11-0.59) K/uL Eos # (Auto) 0.02 (0.00-0.50) K/uL Baso # (Auto) 0.03 (0.00-0.20) K/uL Immature Gran # (Auto) 0.05 (0.01-0.20) K/uL PT (9.0-12.0) Seconds INR (0.9-1.1) APTT (21-31) Seconds PTT Ratio POC Sodium (135-144) mmol/L Sodium 141 (136-145) mmol/L POC Potassium (3.3-5.0) mmol/L Potassium 4.7 (3.5-5.1) mmol/L POC Chloride (101-112) mmol/L Chloride 108 H (98-107) mmol/L Carbon Dioxide 29 (21-32) mmol/L POC Total CO2 (24-31) mmol/L Anion Gap 4 (3-11) POC Anion Gap (16-25) mmol/L POC BUN (7-18) mg/dl BUN 22 (6-23) mg/dl Creatinine 1.08 (0.6-1.4) mg/dl POC Creatinine (0.6-1.3) mg/dl Est Cr Clr Drug Dosing 57.4 ml/min eGFR 71.12 BUN/Creatinine Ratio 20.4 H (10-20) Glucose 141 H (70-99(Fasting)) mg/dl POC Glucose (other) (70-99) mg/dl Calcium 8.0 L (8.6-10.3) mg/dl POC Ioniz Calcium Peggy (1.12-1.32) mmol/l Magnesium 1.7 (1.7-2.4) mg/dl Total Bilirubin 2.2 H D (0.2-1.0) mg/dl AST 14 (13-39) U/L ALT 10 (7-52) U/L Alkaline Phosphatase 62 (34-104) U/L Troponin I High Sens (0-20) pg/ml Total Protein 5.1 L (6.0-8.3) gm/dl Albumin 3.2 L (3.4-5.0) gm/dl Globulin 1.9 L (2.5-4.0) gm/dl Albumin/Globulin Ratio 1.7 (0.9-2) POC Stool Occult Blood Blood Type Antibody Screen Crossmatch 10/02/24 10/02/24 10/01/24 Range/Units 03:05 00:25 21:41 WBC 10.18 (4.8-10.8) K/ul RBC 3.50 L (4.70-6.10) M/uL Hgb 10.1 L 8.5 L (14.0-18.0) g/dl POC Hgb 11.2 L (14.0-18.0) g/dl Hct 26.0 L (42.0-52.0) % POC Hct 33 L (42-52) % MCV (80.0-100.0) fL MCH (25.0-34.0) pg MCHC (32.0-36.0) g/dL RDW Std Deviation (36.4-46.3) fL RDW Coeff of Karla (11.5-14.5) % Plt Count (130-400) K/uL MPV (9.4-12.4) fL Immature Gran % (Auto) % Neut % (Auto) % Lymph % (Auto) % Pi[place] % (Auto) % Eos % (Auto) % Baso % (Auto) % Neut # (Auto) (1.40-6.50) K/uL Lymph # (Auto) (1.20-3.40) K/uL [place] # (Auto) (0.11-0.59) K/uL Eos # (Auto) (0.00-0.50) K/uL Baso # (Auto) (0.00-0.20) K/uL Immature Gran # (Auto) (0.01-0.20) K/uL PT (9.0-12.0) Seconds INR (0.9-1.1) APTT (21-31) Seconds PTT Ratio POC Sodium 139 (135-144) mmol/L Sodium (136-145) mmol/L POC Potassium 3.9 (3.3-5.0) mmol/L Potassium (3.5-5.1) mmol/L POC Chloride 101 (101-112) mmol/L Chloride (98-107) mmol/L Carbon Dioxide (21-32) mmol/L POC Total CO2 25 (24-31) mmol/L Anion Gap (3-11) POC Anion Gap 18.0 (16-25) mmol/L POC BUN 23 H (7-18) mg/dl BUN (6-23) mg/dl Creatinine (0.6-1.4) mg/dl POC Creatinine 1.3 (0.6-1.3) mg/dl Est Cr Clr Drug Dosing ml/min eGFR BUN/Creatinine Ratio (10-20) Glucose (70-99(Fasting)) mg/dl POC Glucose (other) 128 H (70-99) mg/dl Calcium (8.6-10.3) mg/dl POC Ioniz Calcium Peggy 1.13 (1.12-1.32) mmol/l Magnesium (1.7-2.4) mg/dl Total Bilirubin (0.2-1.0) mg/dl AST (13-39) U/L ALT (7-52) U/L Alkaline Phosphatase (34-104) U/L Troponin I High Sens (0-20) pg/ml Total Protein (6.0-8.3) gm/dl Albumin (3.4-5.0) gm/dl Globulin (2.5-4.0) gm/dl Albumin/Globulin Ratio (0.9-2) POC Stool Occult Blood Blood Type Antibody Screen Crossmatch 10/01/24 10/01/24 Range/Units 21:31 21:19 WBC 11.18 H (4.8-10.8) K/ul RBC 3.55 L (4.70-6.10) M/uL Hgb 10.5 L (14.0-18.0) g/dl POC Hgb (14.0-18.0) g/dl Hct 31.9 L (42.0-52.0) % POC Hct (42-52) % MCV 89.9 (80.0-100.0) fL MCH 29.6 (25.0-34.0) pg MCHC 32.9 (32.0-36.0) g/dL RDW Std Deviation 53.3 H (36.4-46.3) fL RDW Coeff of Karla 16.2 H (11.5-14.5) % Plt Count 516 H (130-400) K/uL MPV 10.7 (9.4-12.4) fL Immature Gran % (Auto) 0.4 % Neut % (Auto) 62.1 % Lymph % (Auto) 23.8 % Piute % (Auto) 11.8 % Eos % (Auto) 1.3 % Baso % (Auto) 0.6 % Neut # (Auto) 6.94 H (1.40-6.50) K/uL Lymph # (Auto) 2.66 (1.20-3.40) K/uL [place] # (Auto) 1.32 H (0.11-0.59) K/uL Eos # (Auto) 0.15 (0.00-0.50) K/uL Baso # (Auto) 0.07 (0.00-0.20) K/uL Immature Gran # (Auto) 0.04 (0.01-0.20) K/uL PT 11.5 (9.0-12.0) Seconds INR 1.1 (0.9-1.1) APTT 29 (21-31) Seconds PTT Ratio 1.1 POC Sodium (135-144) mmol/L Sodium 140 (136-145) mmol/L POC Potassium (3.3-5.0) mmol/L Potassium 4.1 (3.5-5.1) mmol/L POC Chloride (101-112) mmol/L Chloride 104 (98-107) mmol/L Carbon Dioxide 31 (21-32) mmol/L POC Total CO2 (24-31) mmol/L Anion Gap 5 (3-11) POC Anion Gap (16-25) mmol/L POC BUN (7-18) mg/dl BUN 22 (6-23) mg/dl Creatinine 1.20 (0.6-1.4) mg/dl POC Creatinine (0.6-1.3) mg/dl Est Cr Clr Drug Dosing 51.5 ml/min eGFR 62.67 BUN/Creatinine Ratio 18.3 (10-20) Glucose 126 H (70-99(Fasting)) mg/dl POC Glucose (other) (70-99) mg/dl Calcium 9.0 (8.6-10.3) mg/dl POC Ioniz Calcium Peggy (1.12-1.32) mmol/l Magnesium (1.7-2.4) mg/dl Total Bilirubin 0.6 (0.2-1.0) mg/dl AST 18 (13-39) U/L ALT 12 (7-52) U/L Alkaline Phosphatase 79 (34-104) U/L Troponin I High Sens 7.6 (0-20) pg/ml Total Protein 6.3 (6.0-8.3) gm/dl Albumin 3.9 (3.4-5.0) gm/dl Globulin 2.4 L (2.5-4.0) gm/dl Albumin/Globulin Ratio 1.6 (0.9-2) POC Stool Occult Blood Pending Blood Type A Positive Antibody Screen NEGATIVE Crossmatch See Detail PG Care Time/CCT Total # of Minutes Spent Total Time Spent with Patient: Total time spent is greater than 50% in coordination of care (as documented) at patient's floor/unit and/or counseling patient: Coding Level of Care Code 50566 SUB INP/OBS CARE 2/35MIN Diagnoses Acute lower GI bleeding K92.2
[2024-10-02 12:45] LABS: Hematocrit (blood only) 28.1 % (42.0-52.0); Hemoglobin 9.4 g/dl (14.0-18.0)
[2024-10-02 16:20] LABS: Hematocrit (blood only) 29.6 % (42.0-52.0); Hemoglobin 9.9 g/dl (14.0-18.0)
[2024-10-02] MEDS: PANTOprazole 40 MG in DEXTROSE 5% MINI-B 100 ML IV SCH (16:25)
[2024-10-02] MEDS: PANTOprazole 80 MG in DEXTROSE 5% 100 ML IV ONE (16:25)
[2024-10-02] MEDS: PANTOPRAZOLE BOLUS/DRIP IV STA (17:03)
[2024-10-02] MEDS: LAVAGE SOLUTION 4000ML PO SCH (18:10)
[2024-10-02] MEDS: lisinopril 10 MG TAB PO STA (20:08)
[2024-10-02 21:09] LABS: Hematocrit (blood only) 29.6 % (42.0-52.0)
[2024-10-03 05:17] LABS: Basophils # (auto) 0.08 K/uL (0.00-0.20); Basophils % (auto) 0.7 %; Eosinophils # (auto) 0.24 K/uL (0.00-0.50); Eosinophils % (auto) 2.1 %; Hematocrit (blood only) 27.1 % (42.0-52.0); Hemoglobin 9.2 g/dl (14.0-18.0); Immature Granulocytes # (auto) 0.05 K/uL (0.01-0.20); Immature Granulocytes % (auto) 0.4 %; Lymphocytes # (auto) 2.49 K/uL (1.20-3.40); Lymphocytes % (auto) 22.2 %; Mean Corpuscular Hemoglobin 29.4 pg (25.0-34.0); Mean Corpuscular Hgb Conc 33.9 g/dL (32.0-36.0); Mean Corpuscular Volume 86.6 fL (80.0-100.0); Mean Platelet Volume 11.3 fL (9.4-12.4); Monocytes # (auto) 1.44 K/uL (0.11-0.59); Monocytes % (auto) 12.8 %; Neutrophils # (auto) 6.91 K/uL (1.40-6.50); Neutrophils % (auto) 61.8 %; Platelet Count 389 K/uL (130-400); RDW Coefficient of Variation 18.6 % (11.5-14.5); RDW Standard Deviation 58.4 fL (36.4-46.3); Red Blood Count 3.13 M/uL (4.70-6.10); White Blood Count 11.21 K/ul (4.8-10.8)
[2024-10-03 05:35] LABS: Albumin Globulin Ratio 1.7 (0.9-2); Albumin Level 3.2 gm/dl (3.4-5.0); BUN Creatinine Ratio 14.6 (10-20); Bilirubin,Total 0.8 mg/dl (0.2-1.0); Calcium 8.2 mg/dl (8.6-10.3); Creatinine Clr Calc Pharmacy 64.5 ml/min; Globulin 1.9 gm/dl (2.5-4.0); Total Protein 5.1 gm/dl (6.0-8.3)
--- NOTE | 2024-10-03 08:01 | Electrocardiogram Report ---
Test Reason : Blood Pressure : */* mmHG Vent. Rate : 63 BPM Atrial Rate : 63 BPM P-R Int : 176 ms QRS Dur : 112 ms QT Int : 430 ms P-R-T Axes : 49 67 8 degrees QTcB Int : 440 ms Normal sinus rhythm Incomplete right bundle branch block Borderline ECG When compared with ECG of 13-Aug-2021 12:11, Incomplete right bundle branch block has replaced Right bundle branch block Criteria for Inferior infarct are no longer Present Confirmed by Fili Devries ([id number]) on 10/03/2024 8:01:16 AM Referred By: REFERRED SELF Confirmed By: Fili Devries
--- NOTE | 2024-10-03 09:13 | Gastroenterology Progress Note ---
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 Carlitos Maloney Alternative medicine practitioner in [place], [place] w/ known metastatic diseased admitted w/ rectal bleeding. CT w/ resection the splenic flexure site, some wall thickening of the mid to distal transverse colon to the anastomotic, mild wall left and sigmoid colon wall thickening, rectal wall thickening w/ small enhancing vessels adjacent to the rectum, numerous liver masses Maintain NPO status for EGD/Colonoscopy today. We appreciate assistance in the management of any serological abnormality and corrections to include: hemoglobin >7, INR <2, platelets >50,000, potassium levels >3.5 but <5.3, and sodium levels within 5 points of the reference range prior to endoscopic evaluation. Admission and Anticipated Discharge Date Admission Date: October 02, 2024 Supervising Physician Co-Signing Physician Notes I personally saw and examined the patient. I have reviewed the chart and agree with the documentation provided by the [employer] including discussion about the assessment, treatment and plan. Briefly, old blood came out that was dark to black. Plan for EGD: Today given his history of metastatic colon cancer with bleeding and anemia Subjective Pt was seen and evaluated, chart reviewed. Tolerating bowel prep. Is NPO now. He had some bleeding initially w/ the bowel prep. Documentation suggests this AM stools were non-bloody, loose and watery. HGB 9.2 BUN 14 On PPI Review of Systems Review of Systems: All other findings negative except as noted in HPI. Physical Exam Constitutional: WD/WN, vitals as above Respiratory: normal respiratory effort Cardiovascular: Rate/Rhythm: regular rate and regular rhythm Gastrointestinal (Abdomen): normal bowel sounds, soft, nontender, no hepato splenomegaly Skin: no rashes, warm and dry Results & Data Results & Data Vital Signs (Past 12 Hours) Vital Signs Temp Pulse Pulse Resp BP Pulse Ox O2 Del Method 10/03/24 04:00 97.7 F 52 L 16 161/81 H 96 Room Air 10/03/24 02:00 49 L 16 159/58 H 96 Room Air 10/03/24 01:00 97.7 F 50 L 16 182/85 H 95 Room Air 10/02/24 23:59 49 L Laboratory Results 10/03/24 10/02/24 10/02/24 Range/Units 04:20 19:49 16:00 WBC 11.21 H (4.8-10.8) K/ul RBC 3.13 L (4.70-6.10) M/uL Hgb 9.2 L 10.0 L 9.9 L (14.0-18.0) g/dl Hct 27.1 L 29.6 L 29.6 L (42.0-52.0) % MCV 86.6 (80.0-100.0) fL MCH 29.4 (25.0-34.0) pg MCHC 33.9 (32.0-36.0) g/dL RDW Std Deviation 58.4 H (36.4-46.3) fL RDW Coeff of Karla 18.6 H (11.5-14.5) % Plt Count 389 (130-400) K/uL MPV 11.3 (9.4-12.4) fL Immature Gran % (Auto) 0.4 % Neut % (Auto) 61.8 % Lymph % (Auto) 22.2 % [place] % (Auto) 12.8 % Eos % (Auto) 2.1 % Baso % (Auto) 0.7 % Neut # (Auto) 6.91 H (1.40-6.50) K/uL Lymph # (Auto) 2.49 (1.20-3.40) K/uL [place] # (Auto) 1.44 H (0.11-0.59) K/uL Eos # (Auto) 0.24 (0.00-0.50) K/uL Baso # (Auto) 0.08 (0.00-0.20) K/uL Immature Gran # (Auto) 0.05 (0.01-0.20) K/uL Sodium 140 (136-145) mmol/L Potassium 4.0 (3.5-5.1) mmol/L Chloride 104 (98-107) mmol/L Carbon Dioxide 32 (21-32) mmol/L Anion Gap 4 (3-11) BUN 14 (6-23) mg/dl Creatinine 0.96 (0.6-1.4) mg/dl Est Cr Clr Drug Dosing 64.5 ml/min eGFR 81.92 BUN/Creatinine Ratio 14.6 (10-20) Glucose 95 (70-99(Fasting)) mg/dl Calcium 8.2 L (8.6-10.3) mg/dl Total Bilirubin 0.8 D (0.2-1.0) mg/dl AST 15 (13-39) U/L ALT 9 (7-52) U/L Alkaline Phosphatase 58 (34-104) U/L Total Protein 5.1 L (6.0-8.3) gm/dl Albumin 3.2 L (3.4-5.0) gm/dl Globulin 1.9 L (2.5-4.0) gm/dl Albumin/Globulin Ratio 1.7 (0.9-2) POC Stool Occult Blood 10/02/24 10/01/24 Range/Units 12:08 21:19 WBC (4.8-10.8) K/ul RBC (4.70-6.10) M/uL Hgb 9.4 L (14.0-18.0) g/dl Hct 28.1 L (42.0-52.0) % MCV (80.0-100.0) fL MCH (25.0-34.0) pg MCHC (32.0-36.0) g/dL RDW Std Deviation (36.4-46.3) fL RDW Coeff of Karla (11.5-14.5) % Plt Count (130-400) K/uL MPV (9.4-12.4) fL Immature Gran % (Auto) % Neut % (Auto) % Lymph % (Auto) % [place] % (Auto) % Eos % (Auto) % Baso % (Auto) % Neut # (Auto) (1.40-6.50) K/uL Lymph # (Auto) (1.20-3.40) K/uL [place] # (Auto) (0.11-0.59) K/uL Eos # (Auto) (0.00-0.50) K/uL Baso # (Auto) (0.00-0.20) K/uL Immature Gran # (Auto) (0.01-0.20) K/uL Sodium (136-145) mmol/L Potassium (3.5-5.1) mmol/L Chloride (98-107) mmol/L Carbon Dioxide (21-32) mmol/L Anion Gap (3-11) BUN (6-23) mg/dl Creatinine (0.6-1.4) mg/dl Est Cr Clr Drug Dosing ml/min eGFR BUN/Creatinine Ratio (10-20) Glucose (70-99(Fasting)) mg/dl Calcium (8.6-10.3) mg/dl Total Bilirubin (0.2-1.0) mg/dl AST (13-39) U/L ALT (7-52) U/L Alkaline Phosphatase (34-104) U/L Total Protein (6.0-8.3) gm/dl Albumin (3.4-5.0) gm/dl Globulin (2.5-4.0) gm/dl Albumin/Globulin Ratio (0.9-2) POC Stool Occult Blood Cancelled PG Care Time/CCT Total # of Minutes Spent Total Time Spent with Patient: Total time spent is greater than 50% in coordination of care (as documented) at patient's floor/unit and/or counseling patient: Coding Level of Care Code None Diagnoses Acute lower GI bleeding K92.2
--- NOTE | 2024-10-03 14:58 | Anesthesiology Consultation ---
Date of Service October 03, 2024 Assessment & Plan Chart Review Chart Review: Acceptable Risk for Surgery Consults Requested none ASA ASA3 Proposed Anesthesia Anesthesia Type: MAC History Surgery Operation Date: 10/03/24 16:30 Proposed Procedures p Colonoscopy EGD Inocencio Painter MD Height/Weight Height: 5 ft 6 in Weight: 78.5 kg Allergies Allergy/AdvReac Type Severity Reaction Status Date / Time Penicillins Allergy Unknown HAPPENED Verified 10/01/24 23:24 A SMALL CHILD Medications Home Medications Medication Instructions Recorded Confirmed Last Taken lisinopril 10 mg tablet 10 mg PO QAM 06/06/18 10/01/24 10/01/24 [place] 1 tab PO DAILY 10/01/24 10/01/24 10/01/24 [place]e Extract 1 dose INJ 3XWK 10/01/24 10/01/24 Unknown Active Medications Generic Name Dose Route Start Last Admin Trade Name Matiasq PRN Reason Stop Dose Admin Lactated Ringer's 1,000 mls @ 100 mls/hr 10/02/24 03:15 10/03/24 09:07 Lr IV 10/05/24 03:14 100 mls/hr .Q10H GERTRUDIS Administration Pantoprazole Sodium 40 mg/ 100 mls @ 20 mls/hr 10/02/24 16:15 10/03/24 09:07 Dextrose IV 11/01/24 16:14 8 mg/hr Q5H GERTRUDIS 20 mls/hr Administration 8 MG/HR Polyethylene Glycol/Electrolytes 16 dose 10/02/24 18:00 10/02/24 18:10 Lavage Solution 4000ml PO 11/01/24 17:59 16 dose TODAY@1800 GERTRUDIS Administration NPO Last Intake of Solids Comment: Greater then 8 hrs Exercise / Class Metabolic Activity III < 4 Walking/Shop/Light housework Past Family History Family History Mother Family history of diabetes mellitus Past Anesthesia History No Hx of Anesthesia Complications History of PONV No Hx of PONV Social History Smoking Status: Former smoker tobacco type: cigarettes Do You Dip or Chew Tobacco: No Hx Alcohol Use: No Alcohol type: beer alcohol intake frequency: holidays/special occasions only Hx Substance Use: No substance use type: does not use Physical Exam Vital Signs Last Vital Signs Temp 36.5 C 10/03/24 11:39 Pulse 48 L 10/03/24 11:39 Resp 16 10/03/24 11:39 BP 180/79 H 10/03/24 11:39 Pulse Ox 98 10/03/24 11:39 O2 Del Method Room Air 10/03/24 11:39 O2 Flow Rate 3 10/02/24 08:00 Constitutional no acute distress ENMT Mouth: no TMJ abnormality Thyromental Distance: > or= 3.5 Finger Breadths Mallampati Class: I Neck normal visual inspection Respiratory normal respiratory effort Auscultation: lungs clear to auscultation bilaterally Cardiovascular Rate/Rhythm: regular rate and regular rhythm Neurologic moves all extremities Psychiatric Orientation: alert and oriented x 3 Testing Laboratory Results 10/03/24 04:20 10/03/24 04:20 PT 11.5 Seconds (9.0-12.0) 10/01/24 21:31 INR 1.1 (0.9-1.1) 10/01/24 21:31 APTT 29 Seconds (21-31) 10/01/24 21:31 Blood Type A Positive 10/01/24 21:31 Antibody Screen NEGATIVE 10/01/24 21:31
--- NOTE | 2024-10-03 15:44 | Hospitalist Progress Note ---
Date of Service October 03, 2024 Assessment & Plan (1) Acute lower GI bleeding: (2) Adenocarcinoma: (3) Symptomatic hypotension: Plan Patient is a 74-year-old male with past medical history of hypertension, OA, and colon cancer presented due to significant rectal bleeding that began at 6 PM. 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 He is now s/p partial left hemicolectomy, splenectomy, and Julio Cesar pancreatectomy resection at [facility] who has since opted for homeopathic treatment rather than chemoradiation. He is on [place], mistletoe, and vitamin C. Patient had approximately a 5 point drop in his hemoglobin after several episodes of diffuse rectal bleeding along with associated symptomatic hypotension. Blood pressure has improved after IV fluids and patient has 2 units PRBC ordered and currently transfusing this unit. Will trial FFP to reduce the bleeding given patient is on fibrinolytic supplement, and feels tired reduce bleeding, patient will need transfer to tertiary care center for IR guided embolization. #lower GI bleed/Hx adenocarcinoma - Suspected TIC. Hgb dropped from 15.3 to 10.5, PLT stable, coag panel WNL. Patient is on [place] which is a fibrinolytic supplement. APCT shows concern for nonspecific colitis vs residual neoplasm and liver masses and small amount of ascites, otherwise postsurgical changes. Patient was initially unstable with symptomatic hypotension, reported 77/48. Hypotension resolved after IVF in ED. - Hemoccult pending however diffuse bright red blood in stool - 2 units PRBC ordered and transfusing; 10/02 bleeding had stopped 10/03 patient is scheduled for EGD and colonoscopy today #HTN hypotensive on arrival - Holding lisinopril with hypotension and bowel rest - IV Vasotec on as needed basis will resume his medication afterward VTE ppx: SCDs, defer chemical PPx with active bleeding Dispo: PCU versus transfer Admission and Anticipated Discharge Date Admission Date: October 02, 2024 Subjective Patient is n.p.o. tolerated his bowel prep very well hemoglobin has been stable at 9.2 awaiting for EGD and colonoscopy by GI Review of Systems Gastrointestinal: Negative for lower GI bleed abdominal pain or discomfort Physical Exam Physical Exam: onstitutional: WD/WN, vitals as a juana Respiratory: normal respiratory effort Cardiovascular: Rate/Rhythm: regul ar rate and regula r rhythm Gastrointestinal ( Abdomen): normal bowel sound s, soft, nontender , no hepatosplenom egaly Skin: no rashes, warm an d dry Results & Data Results & Data Vital Signs (Past 12 Hours) Vital Signs Temp Pulse Pulse Resp BP BP Pulse Ox 10/03/24 09:09 52 L 13 10/03/24 08:40 10/03/24 08:30 51 L 16 10/03/24 08:00 185/76 H 96 10/03/24 08:00 55 L 15 10/03/24 07:30 48 L 15 10/03/24 07:15 51 L 15 10/03/24 04:00 36.5 C 52 L 16 161/81 H 96 10/03/24 02:00 49 L 16 159/58 H 96 10/03/24 01:00 36.5 C 50 L 16 182/85 H 95 10/02/24 23:59 49 L O2 Del Method 10/03/24 09:09 10/03/24 08:40 Room Air 10/03/24 08:30 10/03/24 08:00 Room Air 10/03/24 08:00 10/03/24 07:30 10/03/24 07:15 10/03/24 04:00 Room Air 10/03/24 02:00 Room Air 10/03/24 01:00 Room Air 10/02/24 23:59 PG Care Time/CCT Total # of Minutes Spent Total Time Spent with Patient: Total time spent is greater than 50% in coordination of care (as documented) at patient's floor/unit and/or counseling patient: Coding Level of Care Code 67949 SUB INP/OBS CARE 2/35MIN Diagnoses Acute lower GI bleeding K92.2 Adenocarcinoma C80.1 Symptomatic hypotension I95.9
--- NOTE | 2024-10-03 16:25 | Anesthesiology Progress Note ---
Date of Service October 03, 2024 Anesthesia Post Procedure Vital Signs Vital Signs: Temp Pulse Pulse Resp BP BP BP 10/03/24 16:15 51 L 16 197/92 H 10/03/24 16:00 50 L 16 144/80 H 10/03/24 15:03 221/94 H 10/03/24 14:58 36.7 C 52 L 20 223/94 H 10/03/24 11:39 36.5 C 48 L 16 180/79 H 10/03/24 09:09 52 L 13 10/03/24 09:00 36.7 C 10/03/24 08:40 10/03/24 08:30 51 L 16 10/03/24 08:00 185/76 H 10/03/24 08:00 55 L 15 10/03/24 07:30 48 L 15 10/03/24 07:15 51 L 15 10/03/24 04:00 36.5 C 52 L 16 161/81 H 10/03/24 02:00 49 L 16 159/58 H 10/03/24 01:00 36.5 C 50 L 16 182/85 H 10/02/24 23:59 49 L 10/02/24 20:50 50 L 20 181/87 H 10/02/24 19:46 37.1 C 52 L 205/95 H Pulse Ox O2 Del Method 10/03/24 16:15 97 Room Air 10/03/24 16:00 99 Room Air 10/03/24 15:03 10/03/24 14:58 98 Room Air 10/03/24 11:39 98 Room Air 10/03/24 09:09 10/03/24 09:00 10/03/24 08:40 Room Air 10/03/24 08:30 10/03/24 08:00 96 Room Air 10/03/24 08:00 10/03/24 07:30 10/03/24 07:15 10/03/24 04:00 96 Room Air 10/03/24 02:00 96 Room Air 10/03/24 01:00 95 Room Air 10/02/24 23:59 10/02/24 20:50 99 Room Air 10/02/24 19:46 97 Room Air Transfer of Care Handoff Completed per policy Notes Mental Status: alert / awake / arousable Patient Amnestic to Procedure: Yes Nausea / Vomiting: adequately controlled Pain: adequately controlled Airway Patency, RR, SpO2: stable & adequate BP & HR: stable & adequate Hydration State: stable & adequate Anesthetic Complications: no major complications apparent
--- NOTE | 2024-10-03 16:29 | GI REPORT ---
[facility] Patient: NABILA MACHUCA : 1950 Sex at : Male Age: 74 Years Procedure: Colonoscopy Date: 10/03/2024 Attending Physician: Willem Painter MD Referring MD: Referred Self; Leonor Traylor MD Indications: - Screening for colorectal malignant neoplasm - Melena - Rectal bleeding Medications: - Monitored Anesthesia Care Complications: - No immediate complications. Estimated Blood Loss: - Estimated blood loss: None. - Estimated blood loss was minimal. Procedure: - Prior to the procedure, a History and Physical was performed, and patient medications and allergies were reviewed. The patient's tolerance of previous anesthesia was also reviewed. The risks and benefits of the procedure and the sedation options and risks were discussed with the patient. All questions were answered, and informed consent was obtained. Prior Anticoagulants: The patient has taken no anticoagulant or antiplatelet agents. ASA Grade Assessment: III - A patient with severe systemic disease. After reviewing the risks and benefits, the patient was deemed in satisfactory condition to undergo the procedure. - The pediatric colonoscope was introduced through the anus and advanced to the cecum, identified by appendiceal orifice and ileocecal valve. - The colonoscopy was performed without difficulty. - The patient tolerated the procedure well. - The quality of the bowel preparation was good. - The ileocecal valve, appendiceal orifice, and rectum were photographed. Findings: - The exam was otherwise without abnormality on direct and retroflexion views. - A few small-mouthed diverticula were found in the descending colon. - A continuous area of bleeding ulcerated mucosa with stigmata of recent bleeding was present in the transverse colon. For hemostasis, two hemostatic clips were successfully placed. Area was unsuccessfully injected with 2 mL of a 0.1 mg/mL solution of epinephrine for hemostasis. Coagulation for hemostasis using argon plasma was successful. - There were 2 spots of visible vessels with ulcerated mucosa noted at the anastomosis. The anastomosis was bulging and it appeared to have something underneath i.e. colorectal cancer cannot be excluded. Using epinephrine 2 cc were injected then thermotherapy was done with APC and then 2 clips placed. The area is very friable and no more therapy can be done and the concern is that if this is due to underlying malignancy, this may rebleed. If rebleeding occurs would definitely suggest transfer to tertiary center for IR guided embolization. Impression: - The examination was otherwise normal on direct and retroflexion views. - Diverticulosis in the descending colon. - Mucosal ulceration in the transverse colon. Clips were placed. Treatment not successful. Treated with argon plasma coagulation (APC). - There were 2 spots of visible vessels with ulcerated mucosa noted at the anastomosis. The anastomosis was bulging and it appeared to have something underneath i.e. colorectal cancer cannot be excluded. Using epinephrine 2 cc were injected then thermotherapy was done with APC and then 2 clips placed. The area is very friable and no more therapy can be done and the concern is that if this is due to underlying malignancy, this may rebleed. If rebleeding occurs would definitely suggest transfer to tertiary center for IR guided embolization. - No specimens collected. Recommendation: - Discharge patient to home (ambulatory). - Resume previous diet. - Continue present medications. - Return to referring physician as previously scheduled. - Patient has a contact number available for emergencies. The signs and symptoms of potential delayed complications were discussed with the patient. Return to normal activities tomorrow. Written discharge instructions were provided to the patient. Procedure Code(s): - 16461, Colonoscopy, flexible; with control of bleeding, any method Diagnosis Code(s): - Z12.11, Encounter for screening for malignant neoplasm of colon - K92.1, Melena (includes Hematochezia) - K62.5, Hemorrhage of anus and rectum - K63.3, Ulcer of intestine - K57.30, Diverticulosis of large intestine without perforation or abscess without bleeding CPT(R) - 2023 copyright [employer]. All Rights Reserved. The CPT codes, CCI edits and ICD codes generated are intended as suggestions and were generated based on input data. These codes are preliminary and upon freezer machine operator review may be revised to meet current compliance and payer requirements. The provider is responsible for the final determination of appropriate codes, and modifiers. Willem Painter MD This document has been electronically signed. Note Initiated:10/03/2024 Note Completed:10/03/2024 4:28 PM \\[email or web address]\Central\InterfaceData\Data\Provation\Results\LIVE\[id number].pdf
--- NOTE | 2024-10-03 16:35 | GI REPORT ---
[facility] Patient: NABILA MACHUCA : 1950 Sex at : Male Age: 74 Years Procedure: Upper GI endoscopy Date: 10/03/2024 Attending Physician: Willem Painter MD Referring MD: Referred Self; Leonor Traylor MD Indications: - Melena Medications: - Monitored Anesthesia Care Complications: - No immediate complications. Estimated Blood Loss: - Estimated blood loss: None. Procedure: - Prior to the procedure, a History and Physical was performed, and patient medications and allergies were reviewed. The patient's tolerance of previous anesthesia was also reviewed. The risks and benefits of the procedure and the sedation options and risks were discussed with the patient. All questions were answered, and informed consent was obtained. Prior Anticoagulants: The patient has taken no anticoagulant or antiplatelet agents. ASA Grade Assessment: III - A patient with severe systemic disease. After reviewing the risks and benefits, the patient was deemed in satisfactory condition to undergo the procedure. - The pediatric colonoscope was introduced through the mouth and advanced to the third part of the duodenum. - The upper GI endoscopy was accomplished without difficulty. - The patient tolerated the procedure well. Findings: - The examined esophagus was normal. - Diffuse severe inflammation characterized by congestion (edema), erythema and erosions was found in the gastric body. Biopsies were taken with a cold forceps for histology. Severe gastritis that is thickened I took biopsies to make sure there is no infiltrative gastritis. - The examined duodenum was normal. Impression: - Normal esophagus. - Acute gastritis, characterized by congestion (edema), erythema and erosions. Biopsied. - Severe gastritis that is thickened I took biopsies to make sure there is no infiltrative gastritis. - Normal examined duodenum. Recommendation: - Discharge patient to home (ambulatory). - Resume previous diet. - Continue present medications. - Await pathology results. - Return to primary care physician as previously scheduled. - Patient has a contact number available for emergencies. The signs and symptoms of potential delayed complications were discussed with the patient. Return to normal activities tomorrow. Written discharge instructions were provided to the patient. Procedure Code(s): - 56028, Esophagogastroduodenoscopy, flexible, transoral; with biopsy, single or multiple Diagnosis Code(s): - K92.1, Melena (includes Hematochezia) - K29.00, Acute gastritis without bleeding CPT(R) - 2023 copyright [employer]. All Rights Reserved. The CPT codes, CCI edits and ICD codes generated are intended as suggestions and were generated based on input data. These codes are preliminary and upon brain wave technician review may be revised to meet current compliance and payer requirements. The provider is responsible for the final determination of appropriate codes, and modifiers. Willem Painter MD This document has been electronically signed. Note Initiated:10/03/2024 Note Completed:10/03/2024 4:34 PM \\[email or web address]\Central\InterfaceData\Data\Provation\Results\LIVE\[id number]
[2024-10-03] MEDS: LIDOCAINE 2% 2 ML VIAL/AMP(20MG/ML) INFIL ONE ×2 (17:08)
[2024-10-03] MEDS: ENALAPRILAT 1.25 MG in DEXTROSE 5% 25 ML IV SCH (17:08)
[2024-10-03] MEDS: PHENYLEPHRINE 100MCG/ML 5ML SYR ONE (17:08)
[2024-10-03] MEDS: PROPOFOL IV EMULSION 10 MG/ML 20 ML VIAL IV ONE ×3 (17:08)
[2024-10-03] MEDS: ONDANSETRON INJ 2 MG/ML 2 ML VIAL ONE (17:09)
[2024-10-03] MEDS: lisinopril 10 MG TAB PO SCH (17:39)
[2024-10-03] MEDS: PANTOprazole 40 MG TAB PO SCH (20:19)
--- NOTE | 2024-10-04 09:35 | Gastroenterology Progress Note ---
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 Carlitos Maloney [facility] practitioner in [place], [place] w/ known metastatic diseased admitted w/ rectal bleeding.CT w/ resection the splenic flexure site, some wall thickening of the mid to distal transverse colon to the anastomotic, mild wall left and sigmoid colon wall thickening, rectal wall thickening w/ small enhancing vessels adjacent to the rectum, numerous liver masses S/P EGD/Colonoscopy 10/03/24, path pending but evidence of acute, severe gastritis w/ erosions and thickened mucosa, mucosal ulceration in transverse colon (clipped, APC), ulceration at anastomosis w/ visible vessel (clipped, epi, APC). This AM he is feeling well, passing brown stools. Follow pathology. OP follow up w/ hematology/oncology. May advance diet as tolerated. Trend H&H. Transfuse PRN per primary service. If rebleeding occurs transfer to tertiary center for IR guided embolization. Recall GI as needed. Thank you for allowing us to participate in the care of this patient. Please call with any acute changes, questions or concerns. Please see addendum below with additional recommendation from my supervising physician. I spent a total of 40 minutes on the date of service in review of patient's record, and previously obtained information in person and appropriate medical visit, discussion and education of plan, with patient and/or caregiver, placing orders for tests/referral/procedures as medically necessary and documentation of pertinent clinical information in patient's medical records for their visit today. Admission and Anticipated Discharge Date Admission Date: October 02, 2024 Supervising Physician Co-Signing Physician Notes I personally saw and examined the patient. I have reviewed the chart and agree with the documentation provided by the DEPARTMENT CHAIR including discussion about the assessment, treatment and plan. Briefly, clinically improved from a bleeding standpoint. He had a brown stool and is tolerating a diet. We can advance to soft solids. My concern is that he has metastatic disease and does not understand the nature and extent of his problems. He has chosen a pathway and I just want to make him aware of other options. I will speak to his today. If he tolerates a soft diet, we can consider discharge tomorrow. Subjective Feeling well. Denies abd pain. Reports he had a brown stool this AM. Mostly liquid, small volume w/ some pieces of solid. No black or bloody stools. No fever, chills, CP, SOB. Path pending at time of AM rounds. EGD 2024: - Normal esophagus. - Acute gastritis, characterized by congestion (edema), erythema and erosions. Biopsied. - Severe gastritis that is thickened I took biopsies to make sure there is no infiltrative gastritis. - Normal examined duodenum. Colonoscopy 2024: The exam was otherwise without abnormality on direct and retroflexion views. - A few small-mouthed diverticula were found in the descending colon. - A continuous area of bleeding ulcerated mucosa with stigmata of recent bleeding was present in the transverse colon. For hemostasis, two hemostatic clips were successfully placed. Area was unsuccessfully injected with 2 mL of a 0.1 mg/mL solution of epinephrine for hemostasis. Coagulation for hemostasis using argon plasma was successful. - There were 2 spots of visible vessels with ulcerated mucosa noted at the anastomosis. The anastomosis was bulging and it appeared to have something underneath i.e. colorectal cancer cannot be excluded. Using epinephrine 2 cc were injected then thermotherapy was done with APC and then 2 clips placed. The area is very friable and no more therapy can be done and the concern is that if this is due to underlying malignancy, this may rebleed. If rebleeding occurs would definitely suggest transfer to tertiary center for IR guided embolization. Review of Systems Review of Systems: All other findings negative except as noted in HPI. Physical Exam Constitutional: WD/WN, vitals as above Respiratory: normal respiratory effort Cardiovascular: Rate/Rhythm: regular rate and regular rhythm Gastrointestinal (Abdomen): normal bowel sounds, soft, nontender, no hepatosplenomegaly Skin: no rashes, warm and dry Results & Data Results & Data Vital Signs (Past 12 Hours) Vital Signs Temp Pulse Pulse Resp BP BP Pulse Ox 10/04/24 07:41 97.5 F L 49 L 18 166/77 H 98 10/04/24 07:30 50 L 10/04/24 05:57 49 L 16 150/69 H 96 10/04/24 04:00 51 L 17 170/75 H 95 10/04/24 00:00 52 L 145/72 H 10/04/24 00:00 50 L 10/03/24 23:00 51 L 17 172/79 H 95 O2 Del Method 10/04/24 07:41 Room Air 10/04/24 07:30 10/04/24 05:57 Room Air 10/04/24 04:00 Room Air 10/04/24 00:00 10/04/24 00:00 10/03/24 23:00 Room Air PG Care Time/CCT Total # of Minutes Spent Total Time Spent with Patient: Total time spent is greater than 50% in coordination of care (as documented) at patient's floor/unit and/or counseling patient: Coding Level of Care Code 08834 SUB INP/OBS CARE 2/35MIN Diagnoses Acute lower GI bleeding K92.2
--- NOTE | 2024-10-04 11:01 | Palliative Care Consultation ---
Date of Consultation October 04, 2024 Assessment & Plan (1) Abdominal pain, generalized: (2) Palliative care by specialist: Introduced Palliative Medicine and explained our role in patient's care. Patient and/or family were receptive to palliative services for goals of care discussions. Reviewed we are different from hospice, a home health nurse visiting service. (3) Advanced care planning/counseling discussion: A 40min face to face ACP was held at bedside with pt events to date discussed with pt imaging reviewed He says he was told cancer is potentially controllable but not curable. he has a very negative perspective of hospice from a family member's experience and so I did not initiate this topic with him at all. i think we need to give him some time for the information gathering and the IDT. he thinks our CT scan is not accurate-says his recent PETCT at [facility] was "showing improvement." he has a lot of trust in his functional medicine team and wants them looped in for all discussions. he is not willing to reconsider chemoradiation and cited several examples of friends and family who did not have success with chemo, could not tolerate chemo or looked worse for wear with chemo. He does not want any changes to anything. He wants to await path results and would like an IDT teleconf with his functional med team in [place]. Of note, he has never met with Dr Maloney, only his [employer] Yudy. History of Present Illness Reason for Consultation: Hospice /Palliative care Attending Physician: Leonor Traylor MD History of Present Illness Mr Douglas is a 74yo male with history of dyslipidemia, renal insufficiency, splenic flexure adenocarcinoma s/p resection who was initially on ch emoradiation but then stopped cancer RX and chose to move over to homeopathy with "Boluoke, IV Vitamin C and Mistletoe" managed through Carlitos Maloney MD,at the [facility] in [place], [place]. +metastatic diseased admitted w/ rectal bleeding. 10/01/24: CT Abd/Pelvis: Interval resection the splenic flexure site of previously demonstrated thickening. Interval splenectomy. Wall thickening of the mid to distal transverse colon to the anastomotic sutures with collapse of the colon distally. Mild wall left and sigmoid colon wall thickening. Considerations include nonspecific colitis versus recurrent or residual neoplasm.Ventral abdominal pelvic incision scar with associated nonobstructing bowel containing hernia.Distal rectal wall thickening. Multiple small enhancing vessels adjacent to the rectum, possibly varicosities.Small amount of ascites. Interval development of numerous liver masses, most suspicious for metastatic disease. Redemonstrated multiple simple and complex cyst versus solid masses, similar to the prior study. Recommend correlation to prior images to determine stability. Interval development of severe bilateral hydronephrosis and diffuse hydroureter without obstructing calculus. Partially contracted urinary bladder with diffuse wall thickening, possibly related to enlarged prostate gland. CT w/ resection the splenic flexure site, some wall thickening of the mid to distal transverse colon to the anastomotic, mild wall left and sigmoid colon wall thickening, rectal wall thickening w/ small enhancing vessels adjacent to the rectum, numerous liver masses. S/P EGD/Colonoscopy 10/03/24, path pending but evidence of acute, severe gastritis w/ erosions and thickened mucosa, mucosal ulceration in transverse colon (clipped, APC), ulceration at anastomosis w/ visible vessel (clipped, epi, APC). This AM he is feeling well, passing brown stools. Per [employer] Link, Dr Buzz Perez/[facility] Med Onc Note Apr 2023: DIAGNOSIS: - Splenic flexure adenocarcinoma S/P resection, pathological T4a,N2b.( 01/11) - S/P splenectomy. No spleen involvement. - Normal preoperative CEA level - MSI stable Iron deficiency anemia received Ferric Derisomaltose (Monoferric) x1 dose on 11/19/2021. CURRENT TREATMENT: -he declined for adjuvant chemotherapy treatment options. Currently he is having alternative neuropathy medication treatment. He follows with Dr. Carlitos Maloney Alternative medicine practitioner in [place], [place]. DIAGNOSTIC WORKUP: He was admitted between 08/13/2021-08/17/2021 for hematochezia.previous colonoscopy was in 2016. Hemoglobin level was around 14.5 earlier in late 06/2021,, dropped down to around 9.8 g/dL. CT scan of the abdomen and pelvis without contrast (08/13/2021: 1. Moderate circumferential wall thickening of the splenic flexure of the colon with mild pericolonic infiltration. This favors a nonspecific colitis. A nonemergent colonoscopy once symptoms resolve is recommended to exclude the possibility of an underlying lesion. No intraluminal contrast to suggest active bleed by CT. 2. Multiple airspace opacities within the lower lungs which favor an infectious process, possibly resolving. Colonoscopy (08/16/2021: - Severe stricture at the splenic flexure. Could not have complete colonoscopic evaluation. Colon, stricture, biopsy: - Invasive adenocarcinoma, signet-ring cell type - MSI stable (NANCY) CEA level --> 1.7 (08/30/2021). CT chest (09/03/2021). Scattered faint peripheral ground-glass opacities. Previously seen opacities at the lung bases are less prominent. Findings may be related to resolving infection. Mildly enlarged right hilar lymph node which may be reactive. Indeterminate bilateral renal lesions measuring higher than fluid density. Ultrasound is recommended for further evaluation. Underwent resection of the splenic flexure is a splenectomy on 09/16/[address] Resendez. Final pathology showed invasive Signet ring adenocarcinoma 8.5 cm, invading the retroperitoneum, tumor cells are present in the section of the mesenteric margin. Head and proximal and distal margin negative - Extensive lymphovascular invasion noted - 7 out of 14 lymph nodes positive for metastatic disease - T4 a N2b.( 01/11) Splenectomy showed benign findings, one out of two lymph duyen positive for metastatic adenocarcinoma. Allergies Allergy/AdvReac Type Severity Reaction Status Date / Time Penicillins Allergy Unknown HAPPENED Verified 10/01/24 23:24 A SMALL CHILD Home Medications Medication Instructions Recorded Confirmed Type lisinopril 10 mg tablet 10 mg PO QAM 06/06/18 10/01/24 History Boluoke 1 tab PO DAILY 10/01/24 10/01/24 History Mistletoe Extract 1 dose INJ [id number] 10/01/24 10/01/24 History Patient History Family History Mother Family history of diabetes mellitus Social History Smoking Status: Former smoker Tobacco Type: Cigarettes Second Hand Exposure: No; Do You Dip or Chew Tobacco: No; Tobacco Cessation Education Requested by Patient: No Hx Alcohol Use: No Hx Substance Use: No Preferred Language: Czech Communication Ability: Effective Job Estimator Required: No Beliefs That Will Affect Care: None marital status: Current Living Situation: Spouse Other Information That Helps Us Care for You: No Feels Safe at Home: Yes Safety Concerns: Feels Safe At This Time Assistive Devices: Cane Review of Systems Review of Systems: All systems reviewed & are unremarkable except as noted in Subjective Physical Exam Physical Exam: The patient is awake, alert and oriented 3, pale. HEENT- EOMI, mucous membranes dry. Hearing impaired,+hearing aides Heart-normal S1 and S2. No murmurs, rubs or gallops. Lungs-clear bilaterally, no respiratory distress, no accessory muscle use. Abdomen-normal bowel sounds and soft. No ascites noted. Non-tender. Extremities- no clubbing, cyanosis, or edema. HAJI AAOx3 +anxious Results & Data Vital Signs (Past 12 Hours) Vital Signs Temp Pulse Pulse Resp BP BP Pulse Ox 10/04/24 07:41 36.4 C L 49 L 18 166/77 H 98 10/04/24 07:30 50 L 10/04/24 05:57 49 L 16 150/69 H 96 10/04/24 04:00 51 L 17 170/75 H 95 10/04/24 00:00 52 L 145/72 H 10/04/24 00:00 50 L O2 Del Method 10/04/24 07:41 Room Air 10/04/24 07:30 10/04/24 05:57 Room Air 10/04/24 04:00 Room Air 10/04/24 00:00 10/04/24 00:00 Laboratory Results 10/03/24 10/02/24 10/02/24 Range/Units 04:20 19:49 16:00 WBC 11.21 H (4.8-10.8) K/ul RBC 3.13 L (4.70-6.10) M/uL Hgb 9.2 L 10.0 L 9.9 L (14.0-18.0) g/dl POC Hgb (14.0-18.0) g/dl Hct 27.1 L 29.6 L 29.6 L (42.0-52.0) % POC Hct (42-52) % MCV 86.6 (80.0-100.0) fL MCH 29.4 (25.0-34.0) pg MCHC 33.9 (32.0-36.0) g/dL RDW Std Deviation 58.4 H (36.4-46.3) fL RDW Coeff of Karla 18.6 H (11.5-14.5) % Plt Count 389 (130-400) K/uL MPV 11.3 (9.4-12.4) fL Immature Gran % (Auto) 0.4 % Neut % (Auto) 61.8 % Lymph % (Auto) 22.2 % [place] % (Auto) 12.8 % Eos % (Auto) 2.1 % Baso % (Auto) 0.7 % Neut # (Auto) 6.91 H (1.40-6.50) K/uL Lymph # (Auto) 2.49 (1.20-3.40) K/uL [place] # (Auto) 1.44 H (0.11-0.59) K/uL Eos # (Auto) 0.24 (0.00-0.50) K/uL Baso # (Auto) 0.08 (0.00-0.20) K/uL Immature Gran # (Auto) 0.05 (0.01-0.20) K/uL PT (9.0-12.0) Seconds INR (0.9-1.1) APTT (21-31) Seconds PTT Ratio POC Sodium (135-144) mmol/L Sodium 140 (136-145) mmol/L POC Potassium (3.3-5.0) mmol/L Potassium 4.0 (3.5-5.1) mmol/L POC Chloride (101-112) mmol/L Chloride 104 (98-107) mmol/L Carbon Dioxide 32 (21-32) mmol/L POC Total CO2 (24-31) mmol/L Anion Gap 4 (3-11) POC Anion Gap (16-25) mmol/L POC BUN (7-18) mg/dl BUN 14 (6-23) mg/dl Creatinine 0.96 (0.6-1.4) mg/dl POC Creatinine (0.6-1.3) mg/dl Est Cr Clr Drug Dosing 64.5 ml/min eGFR 81.92 BUN/Creatinine Ratio 14.6 (10-20) Glucose 95 (70-99(Fasting)) mg/dl POC Glucose (other) (70-99) mg/dl Calcium 8.2 L (8.6-10.3) mg/dl POC Ioniz Calcium Peggy (1.12-1.32) mmol/l Magnesium (1.7-2.4) mg/dl Total Bilirubin 0.8 D (0.2-1.0) mg/dl AST 15 (13-39) U/L ALT 9 (7-52) U/L Alkaline Phosphatase 58 (34-104) U/L Troponin I High Sens (0-20) pg/ml Total Protein 5.1 L (6.0-8.3) gm/dl Albumin 3.2 L (3.4-5.0) gm/dl Globulin 1.9 L (2.5-4.0) gm/dl Albumin/Globulin Ratio 1.7 (0.9-2) POC Stool Occult Blood Blood Type Antibody Screen Crossmatch 10/02/24 10/02/24 10/02/24 Range/Units 12:08 07:48 03:05 WBC (4.8-10.8) K/ul RBC (4.70-6.10) M/uL Hgb 9.4 L 9.5 L (14.0-18.0) g/dl POC Hgb (14.0-18.0) g/dl Hct 28.1 L 28.3 L Cancelled (42.0-52.0) % POC Hct (42-52) % MCV 87.1 (80.0-100.0) fL MCH 28.9 (25.0-34.0) pg MCHC 33.1 (32.0-36.0) g/dL RDW Std Deviation 58.1 H (36.4-46.3) fL RDW Coeff of Karla 18.2 H (11.5-14.5) % Plt Count 372 (130-400) K/uL MPV 10.5 (9.4-12.4) fL Immature Gran % (Auto) 0.5 % Neut % (Auto) 78.8 % Lymph % (Auto) 12.5 % [place] % (Auto) 7.7 % Eos % (Auto) 0.2 % Baso % (Auto) 0.3 % Neut # (Auto) 8.03 H (1.40-6.50) K/uL Lymph # (Auto) 1.27 (1.20-3.40) K/uL [place] # (Auto) 0.78 H (0.11-0.59) K/uL Eos # (Auto) 0.02 (0.00-0.50) K/uL Baso # (Auto) 0.03 (0.00-0.20) K/uL Immature Gran # (Auto) 0.05 (0.01-0.20) K/uL PT (9.0-12.0) Seconds INR (0.9-1.1) APTT (21-31) Seconds PTT Ratio POC Sodium (135-144) mmol/L Sodium 141 (136-145) mmol/L POC Potassium (3.3-5.0) mmol/L Potassium 4.7 (3.5-5.1) mmol/L POC Chloride (101-112) mmol/L Chloride 108 H (98-107) mmol/L Carbon Dioxide 29 (21-32) mmol/L POC Total CO2 (24-31) mmol/L Anion Gap 4 (3-11) POC Anion Gap (16-25) mmol/L POC BUN (7-18) mg/dl BUN 22 (6-23) mg/dl Creatinine 1.08 (0.6-1.4) mg/dl POC Creatinine (0.6-1.3) mg/dl Est Cr Clr Drug Dosing 57.4 ml/min eGFR 71.12 BUN/Creatinine Ratio 20.4 H (10-20) Glucose 141 H (70-99(Fasting)) mg/dl POC Glucose (other) (70-99) mg/dl Calcium 8.0 L (8.6-10.3) mg/dl POC Ioniz Calcium Peggy (1.12-1.32) mmol/l Magnesium 1.7 (1.7-2.4) mg/dl Total Bilirubin 2.2 H D (0.2-1.0) mg/dl AST 14 (13-39) U/L ALT 10 (7-52) U/L Alkaline Phosphatase 62 (34-104) U/L Troponin I High Sens (0-20) pg/ml Total Protein 5.1 L (6.0-8.3) gm/dl Albumin 3.2 L (3.4-5.0) gm/dl Globulin 1.9 L (2.5-4.0) gm/dl Albumin/Globulin Ratio 1.7 (0.9-2) POC Stool Occult Blood Blood Type Antibody Screen Crossmatch 10/02/24 10/02/24 10/02/24 Range/Units 03:05 03:05 00:25 WBC 10.18 (4.8-10.8) K/ul RBC 3.50 L (4.70-6.10) M/uL Hgb Cancelled 10.1 L 8.5 L (14.0-18.0) g/dl POC Hgb (14.0-18.0) g/dl Hct 30.5 L 26.0 L (42.0-52.0) % POC Hct (42-52) % MCV (80.0-100.0) fL MCH (25.0-34.0) pg MCHC (32.0-36.0) g/dL RDW Std Deviation (36.4-46.3) fL RDW Coeff of Karla (11.5-14.5) % Plt Count (130-400) K/uL MPV (9.4-12.4) fL Immature Gran % (Auto) % Neut % (Auto) % Lymph % (Auto) % [place] % (Auto) % Eos % (Auto) % Baso % (Auto) % Neut # (Auto) (1.40-6.50) K/uL Lymph # (Auto) (1.20-3.40) K/uL [place] # (Auto) (0.11-0.59) K/uL Eos # (Auto) (0.00-0.50) K/uL Baso # (Auto) (0.00-0.20) K/uL Immature Gran # (Auto) (0.01-0.20) K/uL PT (9.0-12.0) Seconds INR (0.9-1.1) APTT (21-31) Seconds PTT Ratio POC Sodium (135-144) mmol/L Sodium (136-145) mmol/L POC Potassium (3.3-5.0) mmol/L Potassium (3.5-5.1) mmol/L POC Chloride (101-112) mmol/L Chloride (98-107) mmol/L Carbon Dioxide (21-32) mmol/L POC Total CO2 (24-31) mmol/L Anion Gap (3-11) POC Anion Gap (16-25) mmol/L POC BUN (7-18) mg/dl BUN (6-23) mg/dl Creatinine (0.6-1.4) mg/dl POC Creatinine (0.6-1.3) mg/dl Est Cr Clr Drug Dosing ml/min eGFR BUN/Creatinine Ratio (10-20) Glucose (70-99(Fasting)) mg/dl POC Glucose (other) (70-99) mg/dl Calcium (8.6-10.3) mg/dl POC Ioniz Calcium Peggy (1.12-1.32) mmol/l Magnesium (1.7-2.4) mg/dl Total Bilirubin (0.2-1.0) mg/dl AST (13-39) U/L ALT (7-52) U/L Alkaline Phosphatase (34-104) U/L Troponin I High Sens (0-20) pg/ml Total Protein (6.0-8.3) gm/dl Albumin (3.4-5.0) gm/dl Globulin (2.5-4.0) gm/dl Albumin/Globulin Ratio (0.9-2) POC Stool Occult Blood Blood Type Antibody Screen Crossmatch 10/01/24 10/01/24 10/01/24 Range/Units 21:41 21:31 21:19 WBC 11.18 H (4.8-10.8) K/ul RBC 3.55 L (4.70-6.10) M/uL Hgb 10.5 L (14.0-18.0) g/dl POC Hgb 11.2 L (14.0-18.0) g/dl Hct 31.9 L (42.0-52.0) % POC Hct 33 L (42-52) % MCV 89.9 (80.0-100.0) fL MCH 29.6 (25.0-34.0) pg MCHC 32.9 (32.0-36.0) g/dL RDW Std Deviation 53.3 H (36.4-46.3) fL RDW Coeff of Karla 16.2 H (11.5-14.5) % Plt Count 516 H (130-400) K/uL MPV 10.7 (9.4-12.4) fL Immature Gran % (Auto) 0.4 % Neut % (Auto) 62.1 % Lymph % (Auto) 23.8 % [place] % (Auto) 11.8 % Eos % (Auto) 1.3 % Baso % (Auto) 0.6 % Neut # (Auto) 6.94 H (1.40-6.50) K/uL Lymph # (Auto) 2.66 (1.20-3.40) K/uL [place] # (Auto) 1.32 H (0.11-0.59) K/uL Eos # (Auto) 0.15 (0.00-0.50) K/uL Baso # (Auto) 0.07 (0.00-0.20) K/uL Immature Gran # (Auto) 0.04 (0.01-0.20) K/uL PT 11.5 (9.0-12.0) Seconds INR 1.1 (0.9-1.1) APTT 29 (21-31) Seconds PTT Ratio 1.1 POC Sodium 139 (135-144) mmol/L Sodium 140 (136-145) mmol/L POC Potassium 3.9 (3.3-5.0) mmol/L Potassium 4.1 (3.5-5.1) mmol/L POC Chloride 101 (101-112) mmol/L Chloride 104 (98-107) mmol/L Carbon Dioxide 31 (21-32) mmol/L POC Total CO2 25 (24-31) mmol/L Anion Gap 5 (3-11) POC Anion Gap 18.0 (16-25) mmol/L POC BUN 23 H (7-18) mg/dl BUN 22 (6-23) mg/dl Creatinine 1.20 (0.6-1.4) mg/dl POC Creatinine 1.3 (0.6-1.3) mg/dl Est Cr Clr Drug Dosing 51.5 ml/min eGFR 62.67 BUN/Creatinine Ratio 18.3 (10-20) Glucose 126 H (70-99(Fasting)) mg/dl POC Glucose (other) 128 H (70-99) mg/dl Calcium 9.0 (8.6-10.3) mg/dl POC Ioniz Calcium Peggy 1.13 (1.12-1.32) mmol/l Magnesium (1.7-2.4) mg/dl Total Bilirubin 0.6 (0.2-1.0) mg/dl AST 18 (13-39) U/L ALT 12 (7-52) U/L Alkaline Phosphatase 79 (34-104) U/L Troponin I High Sens 7.6 (0-20) pg/ml Total Protein 6.3 (6.0-8.3) gm/dl Albumin 3.9 (3.4-5.0) gm/dl Globulin 2.4 L (2.5-4.0) gm/dl Albumin/Globulin Ratio 1.6 (0.9-2) POC Stool Occult Blood Cancelled Blood Type A Positive Antibody Screen NEGATIVE Crossmatch See Detail Diagnostic Findings Abdomen/Pelvis CT 10/01/24 21:37 Exam(s): CT ABDOMEN + PELVIS With Contrast IV Amt: 90 ml optiray 320 EXAM: CT Abdomen and Pelvis With Intravenous Contrast CLINICAL HISTORY: rectal bleeding. TECHNIQUE: Axial computed tomography images of the abdomen and pelvis with intravenous contrast. CTDI is 19.45 mGy and DLP is 1007.49 mGy-cm. Automated exposure control was utilized for the study. A dose lowering technique was utilized adhering to the principles of ALARA. CONTRAST: Patient received 90 ml optiray 320 of IV contrast COMPARISON: 08/13/2021. FINDINGS: Lung bases: Coronary artery calcifications. No mass. No consolidation. ABDOMEN: Liver: Interval development of multiple solid masses throughout the liver, largest in the right lobe 3.8 x 4.1 cm. Gallbladder and bile ducts: Unremarkable. No calcified stones. No ductal dilation. Pancreas: Unremarkable. No mass. No ductal dilation. Spleen: Interval splenectomy. Adrenals: Unremarkable. No mass. Kidneys and ureters: Moderate bilateral hydronephrosis with severe bilateral hydroureter. No obstructing calculus. No renal or ureteral calcifications. Multiple bilateral renal cortical cysts. Multiple intermediate density bilateral renal masses versus complex cyst measuring up to 3.2 cm in the midpole of the left kidney. Stomach and bowel: Interval midline abdominal pelvic incision scar with interval development of a wide-mouth nonobstructing small bowel containing hernia. No obstruction or ileus. Status post left colon resection with anastomotic sutures at the splenic flexure. Mid transverse colon wall thickening to the splenic flexure. Collapsed left and proximal sigmoid colon with mild wall thickening. Distal left and sigmoid colon wall thickening. Distal rectal wall thickening. Multiple small enhancing vessels adjacent to the rectum, possibly varicosities. No evidence for diverticulitis. PELVIS: Appendix: No findings to suggest acute appendicitis. Bladder: Partially contracted with diffuse wall thickening. No mass. Reproductive: Enlarged heterogeneous prostate gland 5.9 x 4.8 cm. ABDOMEN and PELVIS: Intraperitoneal space: No free air. Small amount of pelvic free fluid. Bones/joints: No acute fracture. Degenerative changes of the spine. Soft tissues: Unremarkable. Vasculature: Atherosclerotic vascular calcifications. No abdominal aortic aneurysm. Lymph nodes: Unremarkable. No enlarged lymph nodes. IMPRESSION: Interval resection the splenic flexure site of previously demonstrated thickening. Interval splenectomy. Wall thickening of the mid to distal transverse colon to the anastomotic sutures with collapse of the colon distally. Mild wall left and sigmoid colon wall thickening. Considerations include nonspecific colitis versus recurrent or residual neoplasm. Ventral abdominal pelvic incision scar with associated nonobstructing bowel containing hernia. Distal rectal wall thickening. Multiple small enhancing vessels adjacent to the rectum, possibly varicosities. Small amount of ascites. Interval development of numerous liver masses, most suspicious for metastatic disease. Redemonstrated multiple simple and complex cyst versus solid masses, similar to the prior study. Recommend correlation to prior images to determine stability. Interval development of severe bilateral hydronephrosis and diffuse hydroureter without obstructing calculus. Partially contracted urinary bladder with diffuse wall thickening, possibly related to enlarged prostate gland. Otherwise no change. Electronically signed by: Minor Smith M.D. 10/02/24 00:24 AM PG Care Time/CCT Total # of Minutes Spent Total Time Spent with Patient: Total time spent is greater than 50% in coordination of care (as documented) at patient's floor/unit and/or counseling patient: I spent 115 minutes overall addressing this case: 25 min in medical data review/discussion with referring provider(s) and/or preparation for the [facility] OS data review, [email or web address] emr link 25 min in direct interaction with the patient/exam 40 min in Advance Care Planning/Goals of Care discussions as detailed above in note (must be >16min) 15 min in subsequent review and synthesis of assessment and plan 15 min communicating with other providers regarding the patient's case: primary team, med onc Advanced Care Planning 82649 Advanced Care Planning 30 Min 32421 Advanced Care Planning Additional 30 [place] [address] IN/OBS CONSULT LVL 5,80M (25 - SIGNIFICANT, SEPARATELY IDENTIFIABLE ) Patient Type New Medical Decision Making High Complexity Diagnoses Abdominal pain, generalized R10.84 Palliative care by specialist Z51.5 Advanced care planning/counseling discussion Z71.89 Additional Codes Advanced Care Planning - 39231 Advanced Care Planning 30 Min: 01985 Advanced Care Planning 30 Min ([id number]) Advanced Care Planning - 96680 Advanced Care Planning Additional 30 Min: 06515 Advanced Care Planning Additional 30 Min ([id number]) Comment [id number], [id number]
[2024-10-04] MEDS: ENALAPRILAT 1.25 MG in DEXTROSE 5% 25 ML IV PRN (17:15)
--- NOTE | 2024-10-04 19:50 | Hospitalist Progress Note ---
Date of Service October 04, 2024 Assessment & Plan (1) Acute lower GI bleeding: (2) Adenocarcinoma: (3) Symptomatic hypotension: Plan Patient is a 74-year-old male with past medical history of hypertension, OA, and colon cancer presented due to significant rectal bleeding that began at 6 PM. 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 He is now s/p partial left hemicolectomy, splenectomy, and Julio Cesar pancreatectomy resection at [facility] who has since opted for homeopathic treatment rather than chemoradiation. He is on Bolu[place], mistletoe, and vitamin C. Patient had approximately a 5 point drop in his hemoglobin after several episodes of diffuse rectal bleeding along with associated symptomatic hypotension. Blood pressure has improved after IV fluids and patient has 2 units PRBC ordered and currently transfusing this unit. Will trial FFP to reduce the bleeding given patient is on fibrinolytic supplement, and feels tired reduce bleeding, patient will need transfer to tertiary care center for IR guided embolization. #lower GI bleed/Hx adenocarcinoma - Suspected TIC. Hgb dropped from 15.3 to 10.5, PLT stable, coag panel WNL. Patient is on Bolu[place] which is a fibrinolytic supplement. APCT shows concern for nonspecific colitis vs residual neoplasm and liver masses and small amount of ascites, otherwise postsurgical changes. Patient was initially unstable with symptomatic hypotension, reported 77/48. Hypotension resolved after IVF in ED. - Hemoccult pending however diffuse bright red blood in stool - 2 units PRBC ordered and transfusing; 10/02 bleeding had stopped 10/03 patient is scheduled for EGD and colonoscopy today 10/04 patient has been started on a diet will follow what is the response for patient appreciate GI input #HTN hypotensive on arrival - Holding lisinopril with hypotension and bowel rest - IV Vasotec on as needed basis will resume his medication afterward VTE ppx: SCDs, defer chemical PPx with active bleeding Dispo: PCU versus transfer Admission and Anticipated Discharge Date Admission Date: October 02, 2024 Subjective Feeling well. Denies abd pain. Reports he had a brown stool this AM. Mostly liquid, small volume w/ some pieces of solid. No black or bloody stools. No fever, chills, CP, SOB. Path pending at time of AM rounds. EGD 2024: - Normal esophagus. - Acute gastritis, characterized by congestion (edema), erythema and erosions. Biopsied. - Severe gastritis that is thickened I took biopsies to make sure there is no infiltrative gastritis. - Normal examined duodenum. Colonoscopy 2024: The exam was otherwise without abnormality on direct and retroflexion views. - A few small-mouthed diverticula were found in the descending colon. - A continuous area of bleeding ulcerated mucosa with stigmata of recent bleeding was present in the transverse colon. For hemostasis, two hemostatic clips were successfully placed. Area was unsuccessfully injected with 2 mL of a 0.1 mg/mL solution of epinephrine for hemostasis. Coagulation for hemostasis using argon plasma was successful. - There were 2 spots of visible vessels with ulcerated mucosa noted at the anastomosis. The anastomosis was bulging and it appeared to have something underneath i.e. colorectal cancer cannot be excluded. Using epinephrine 2 cc were injected then thermotherapy was done with APC and then 2 clips placed. The area is very friable and no more therapy can be done and the concern is that if this is due to underlying malignancy, this may rebleed. If rebleeding occurs would definitely suggest transfer to tertiary center for IR guided embolization. Case discussed with Dr. Peralta and with palliative care as well as with patient's Pam at the bedside family is still considering their options patient has started diet and will follow closely Physical Exam Physical Exam: The patient is awake, alert and oriented 3, pale. HEENT- EOMI, mucous membranes dry. Hearing impaired,+hearing aides Heart-normal S1 and S2. No murmurs, rubs or gallops. Lungs-clear bilaterally, no respiratory distress, no accessory muscle use. Abdomen-normal bowel sounds and soft. No ascites noted. Non-tender. Extremities- no clubbing, cyanosis, or edema. HAJI AAOx3 +anxious Results & Data Results & Data Vital Signs (Past 12 Hours) Vital Signs Temp Pulse Pulse Resp BP BP Pulse Ox 10/04/24 19:12 36.8 C 54 L 18 155/74 H 96 10/04/24 17:28 181/83 H 10/04/24 16:55 222/95 H 10/04/24 16:13 36.7 C 49 L 18 201/88 H 206/90 H 97 10/04/24 15:55 59 L 10/04/24 12:28 136/61 10/04/24 11:23 36.5 C 45 L 18 187/87 H 100 O2 Del Method 10/04/24 19:12 Room Air 10/04/24 17:28 10/04/24 16:55 10/04/24 16:13 Room Air 10/04/24 15:55 10/04/24 12:28 10/04/24 11:23 Room Air PG Care Time/CCT Total # of Minutes Spent Total Time Spent with Patient: Total time spent is greater than 50% in coordination of care (as documented) at patient's floor/unit and/or counseling patient: Coding Level of Care Code 78582 SUB INP/OBS CARE 2/35MIN Diagnoses Acute lower GI bleeding K92.2 Adenocarcinoma C80.1 Symptomatic hypotension I95.9
--- NOTE | 2024-10-05 18:10 | Hospitalist Progress Note ---
Date of Service October 05, 2024 Assessment & Plan (1) Acute lower GI bleeding: (2) Adenocarcinoma: (3) Symptomatic hypotension: Plan Patient is a 74-year-old male with past medical history of hypertension, OA, and colon cancer presented due to significant rectal bleeding that began at 6 PM. 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 He is now s/p partial left hemicolectomy, splenectomy, and Julio Cesar pancreatectomy resection at [facility] who has since opted for homeopathic treatment rather than chemoradiation. He is on Bolu[place], mistletoe, and vitamin C. Patient had approximately a 5 point drop in his hemoglobin after several episodes of diffuse rectal bleeding along with associated symptomatic hypotension. Here in this admission patient had a flexible sigmoidoscopy done it showed suspicious lesion and may have been consistent with metastatic nature of colon cancer spoke to patient's yesterday and with GI specialist plan is to watch patient for any bleeding while he is on a diet after the procedure if everything stays stable patient may be able to go home with outpatient follow-up with oncology team and patient's holistic team that he follows with #lower GI bleed/Hx adenocarcinoma - Suspected TIC. Hgb dropped from 15.3 to 10.5, PLT stable, coag panel WNL. Patient is on Boluoke which is a fibrinolytic supplement. APCT shows concern for nonspecific colitis vs residual neoplasm and liver masses and small amount of ascites, otherwise postsurgical changes. Patient was initially unstable with symptomatic hypotension, reported 77/48. Hypotension resolved after IVF in ED. - Hemoccult pending however diffuse bright red blood in stool - 2 units PRBC ordered and transfusing; 10/02 bleeding had stopped 10/03 patient is scheduled for EGD and colonoscopy today 10/04 patient has been started on a diet will follow what is the response for patient appreciate GI input 10/05 patient denies any bleeding episode I will order CBC for the morning #HTN hypotensive on arrival - Holding lisinopril with hypotension and bowel rest - IV Vasotec on as needed basis will resume his medication afterward VTE ppx: SCDs, defer chemical PPx with active bleeding Patient is a staying in hospital Admission and Anticipated Discharge Date Admission Date: October 02, 2024 Subjective Feeling well. Denies abd pain. Reports he had a brown stool this AM. Mostly liquid, small volume w/ some pieces of solid. No black or bloody stools. No fever, chills, CP, SOB. Path pending at time of AM rounds. EGD 2024: - Normal esophagus. - Acute gastritis, characterized by congestion (edema), erythema and erosions. Biopsied. - Severe gastritis that is thickened I took biopsies to make sure there is no infiltrative gastritis. - Normal examined duodenum. Colonoscopy 2024: The exam was otherwise without abnormality on direct and retroflexion views. - A few small-mouthed diverticula were found in the descending colon. - A continuous area of bleeding ulcerated mucosa with stigmata of recent bleeding was present in the transverse colon. For hemostasis, two hemostatic clips were successfully placed. Area was unsuccessfully injected with 2 mL of a 0.1 mg/mL solution of epinephrine for hemostasis. Coagulation for hemostasis using argon plasma was successful. - There were 2 spots of visible vessels with ulcerated mucosa noted at the anastomosis. The anastomosis was bulging and it appeared to have something underneath i.e. colorectal cancer cannot be excluded. Using epinephrine 2 cc were injected then thermotherapy was done with APC and then 2 clips placed. The area is very friable and no more therapy can be done and the concern is that if this is due to underlying malignancy, this may rebleed. If rebleeding occurs would definitely suggest transfer to tertiary center for IR guided embolization. Case discussed with Dr. Peralta and with palliative care as well as with patient's Pam at the bedside family is still considering their options patient has started diet and will follow closely 10/05 patient had no obvious bleeding from his gut and he is doing well at this time denies any pain mentions that he has some gas from colonoscopy Physical Exam Physical Exam: The patient is awake, alert and oriented 3, pale. HEENT- EOMI, mucous membranes dry. Hearing impaired,+hearing aides Heart-normal S1 and S2. No murmurs, rubs or gallops. Lungs-clear bilaterally, no respiratory distress, no accessory muscle use. Abdomen-normal bowel sounds and soft. No ascites noted. Non-tender. Extremities- no clubbing, cyanosis, or edema. HAJI AAOx3 +anxious Results & Data Results & Data Vital Signs (Past 12 Hours) Vital Signs Temp Pulse Pulse Resp BP Pulse Ox O2 Del Method 10/05/24 16:47 36.3 C L 59 L 18 162/85 H 95 Room Air 10/05/24 15:19 50 L 10/05/24 11:54 36.6 C 47 L 20 175/74 H 100 Room Air 10/05/24 08:05 36.7 C 51 L 18 177/90 H 99 Room Air 10/05/24 07:29 52 L PG Care Time/CCT Total # of Minutes Spent Total Time Spent with Patient: Total time spent is greater than 50% in coordination of care (as documented) at patient's floor/unit and/or counseling patient: Coding Level of Care Code 31590 SUB INP/OBS CARE 2/35MIN Diagnoses Acute lower GI bleeding K92.2 Adenocarcinoma C80.1 Symptomatic hypotension I95.9
[2024-10-06 07:07] LABS: Hematocrit (blood only) 30.1 % (42.0-52.0); Hemoglobin 9.9 g/dl (14.0-18.0); Mean Corpuscular Hemoglobin 29.1 pg (25.0-34.0); Mean Corpuscular Hgb Conc 32.9 g/dL (32.0-36.0); Mean Corpuscular Volume 88.5 fL (80.0-100.0); Mean Platelet Volume 10.9 fL (9.4-12.4); Platelet Count 521 K/uL (130-400); RDW Coefficient of Variation 17.5 % (11.5-14.5); RDW Standard Deviation 56.5 fL (36.4-46.3); White Blood Count 10.58 K/ul (4.8-10.8)
[2024-10-06 07:31] LABS: BUN Creatinine Ratio 13.4 (10-20); Calcium 8.9 mg/dl (8.6-10.3); Creatinine Clr Calc Pharmacy 55.2 ml/min; Potassium 4.3 mmol/L (3.5-5.1)
[2024-10-06] MEDS: lisinopril 10 MG TAB PO ONE (19:07)
--- NOTE | 2024-10-06 20:40 | Hospitalist Progress Note ---
Date of Service October 06, 2024 Assessment & Plan (1) Acute lower GI bleeding: (2) Adenocarcinoma: (3) Symptomatic hypotension: Plan Patient is a 74-year-old male with past medical history of hypertension, OA, and colon cancer presented due to significant rectal bleeding that began at 6 PM. 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 He is now s/p partial left hemicolectomy, splenectomy, and Julio Cesar pancreatectomy resection at [facility] who has since opted for homeopathic treatment rather than chemoradiation. He is on Bolu[place], mistletoe, and vitamin C. Patient had approximately a 5 point drop in his hemoglobin after several episodes of diffuse rectal bleeding along with associated symptomatic hypotension. Here in this admission patient had a flexible sigmoidoscopy done it showed suspicious lesion and may have been consistent with metastatic nature of colon cancer spoke to patient's yesterday and with GI specialist plan is to watch patient for any bleeding while he is on a diet after the procedure if everything stays stable patient may be able to go home with outpatient follow-up with oncology team and patient's holistic team that he follows with #lower GI bleed/Hx adenocarcinoma - Suspected TIC. Hgb dropped from 15.3 to 10.5, PLT stable, coag panel WNL. Patient is on Bolu[place] which is a fibrinolytic supplement. APCT shows concern for nonspecific colitis vs residual neoplasm and liver masses and small amount of ascites, otherwise postsurgical changes. Patient was initially unstable with symptomatic hypotension, reported 77/48. Hypotension resolved after IVF in ED. - Hemoccult pending however diffuse bright red blood in stool - 2 units PRBC ordered and transfusing; 10/02 bleeding had stopped 10/03 patient is scheduled for EGD and colonoscopy today 10/04 patient has been started on a diet will follow what is the response for patient appreciate GI input 10/05 patient denies any bleeding episode I will order CBC for the morning 10/06 hemoglobin level is stable at 9.9 on Monday after the procedure patient's hemoglobin was 10 #HTN hypotensive on arrival - Holding lisinopril with hypotension and bowel rest - IV Vasotec on as needed basis will resume his medication afterward - Back to lisinopril 20 mg Once GI clears him patient wants to go home encouraged to consult with local oncologist after biopsy results are back and with the integrative physician doctor in [place] and see if patient can get IV infusions of vitamin C locally rather than driving 3 hours to [place] also consulting with the local oncologist on the evidence of success for the chemotherapy based on biopsy results and genetic markers of the tumor Admission and Anticipated Discharge Date Admission Date: October 02, 2024 Subjective Feeling well. Denies abd pain. Reports he had a brown stool this AM. Mostly liquid, small volume w/ some pieces of solid. No black or bloody stools. No fever, chills, CP, SOB. Path pending at time of AM rounds. EGD 2024: - Normal esophagus. - Acute gastritis, characterized by congestion (edema), erythema and erosions. Biopsied. - Severe gastritis that is thickened I took biopsies to make sure there is no infiltrative gastritis. - Normal examined duodenum. Colonoscopy 2024: The exam was otherwise without abnormality on direct and retroflexion views. - A few small-mouthed diverticula were found in the descending colon. - A continuous area of bleeding ulcerated mucosa with stigmata of recent bleeding was present in the transverse colon. For hemostasis, two hemostatic clips were successfully placed. Area was unsuccessfully injected with 2 mL of a 0.1 mg/mL solution of epinephrine for hemostasis. Coagulation for hemostasis using argon plasma was successful. - There were 2 spots of visible vessels with ulcerated mucosa noted at the anastomosis. The anastomosis was bulging and it appeared to have something underneath i.e. colorectal cancer cannot be excluded. Using epinephrine 2 cc were injected then thermotherapy was done with APC and then 2 clips placed. The area is very friable and no more therapy can be done and the concern is that if this is due to underlying malignancy, this may rebleed. If rebleeding occurs would definitely suggest transfer to tertiary center for IR guided embolization. Case discussed with Dr. Painter and with palliative care as well as with patient's Pam at the bedside family is still considering their options patient has started diet and will follow closely 10/05 patient had no obvious bleeding from his gut and he is doing well at this time denies any pain mentions that he has some gas from colonoscopy 10/06 patient's blood pressure went up to 220 started him on IV Vasotec increased his dose of lisinopril to 20 mg Physical Exam Physical Exam: The patient is awake, alert and oriented 3, pale. HEENT- EOMI, mucous membranes dry. Hearing impaired,+hearing aides Heart-normal S1 and S2. No murmurs, rubs or gallops. Lungs-clear bilaterally, no respiratory distress, no accessory muscle use. Abdomen-normal bowel sounds and soft. No ascites noted. Non-tender. Extremities- no clubbing, cyanosis, or edema. HAJI AAOx3 Results & Data Results & Data Vital Signs (Past 12 Hours) Vital Signs Temp Pulse Pulse Resp BP BP Pulse Ox 10/06/24 19:30 36.7 C 54 L 20 160/97 H 97 10/06/24 18:30 57 L 176/81 H 10/06/24 16:45 51 L 218/95 H 10/06/24 16:15 194/86 H 192/90 H 10/06/24 15:37 54 L 10/06/24 12:04 36.9 C 48 L 18 143/76 H 100 O2 Del Method 10/06/24 19:30 Room Air 10/06/24 18:30 10/06/24 16:45 10/06/24 16:15 10/06/24 15:37 10/06/24 12:04 Room Air PG Care Time/CCT Total # of Minutes Spent Total Time Spent with Patient: Total time spent is greater than 50% in coordination of care (as documented) at patient's floor/unit and/or counseling patient: Coding Level of Care Code 56122 SUB INP/OBS CARE 3/50MIN Diagnoses Acute lower GI bleeding K92.2 Adenocarcinoma C80.1 Symptomatic hypotension I95.9
[2024-10-07 07:06] LABS: Hematocrit (blood only) 31.1 % (42.0-52.0); Hemoglobin 10.3 g/dl (14.0-18.0); Mean Corpuscular Hemoglobin 29.5 pg (25.0-34.0); Mean Corpuscular Hgb Conc 33.1 g/dL (32.0-36.0); Mean Corpuscular Volume 89.1 fL (80.0-100.0); Platelet Count 569 K/uL (130-400); RDW Coefficient of Variation 17.7 % (11.5-14.5); RDW Standard Deviation 57.2 fL (36.4-46.3); Red Blood Count 3.49 M/uL (4.70-6.10); White Blood Count 10.95 K/ul (4.8-10.8)
[2024-10-07 07:30] LABS: BUN Creatinine Ratio 12.9 (10-20); Calcium 8.9 mg/dl (8.6-10.3); Creatinine Clr Calc Pharmacy 53.5 ml/min; Potassium 3.8 mmol/L (3.5-5.1)
[2024-10-07] MEDS: lisinopril 20 MG TAB PO SCH (08:10)
--- NOTE | 2024-10-07 08:43 | Hospitalist Progress Note ---
Date of Service October 07, 2024 Assessment & Plan (1) Acute lower GI bleeding: (2) Adenocarcinoma: (3) Symptomatic hypotension: Plan Patient is a 74-year-old male with past medical history of hypertension, OA, and colon cancer presented due to significant rectal bleeding that began at 6 PM. 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 He is now s/p partial left hemicolectomy, splenectomy, and Julio Cesar pancreatectomy resection at [facility] who has since opted for homeopathic treatment rather than chemoradiation. He is on Bolu[place], mistletoe, and vitamin C. Patient had approximately a 5 point drop in his hemoglobin after several episodes of diffuse rectal bleeding along with associated symptomatic hypotension. Here in this admission patient had a flexible sigmoidoscopy done it showed suspicious lesion and may have been consistent with metastatic nature of colon cancer spoke to patient's yesterday and with GI specialist plan is to watch patient for any bleeding while he is on a diet after the procedure if everything stays stable patient may be able to go home with outpatient follow-up with oncology team and patient's holistic team that he follows with #lower GI bleed/Hx adenocarcinoma - Suspected TIC. Hgb dropped from 15.3 to 10.5, PLT stable, coag panel WNL. Patient is on Boluoke which is a fibrinolytic supplement. APCT shows concern for nonspecific colitis vs residual neoplasm and liver masses and small amount of ascites, otherwise postsurgical changes. Patient was initially unstable with symptomatic hypotension, reported 77/48. Hypotension resolved after IVF in ED. - Hemoccult pending however diffuse bright red blood in stool - 2 units PRBC ordered and transfusing; 10/03 patient is scheduled for EGD and colonoscopy 10/06 hemoglobin level is stable at 9.9 on Monday after the procedure patient's hemoglobin was 10 #HTN hypotensive on arrival - Holding lisinopril with hypotension and bowel rest - IV Vasotec on as needed basis will resume his medication afterward - Back to lisinopril 20 mg Once GI clears him patient wants to go home encouraged to consult with local oncologist after biopsy results are back and with the integrative physician doctor in [place] and see if patient can get IV infusions of vitamin C locally rather than driving 3 hours to [place] also consulting with the local oncologist on the evidence of success for the chemotherapy based on biopsy results and genetic markers of the tumor Admission and Anticipated Discharge Date Admission Date: October 02, 2024 Results & Data Results & Data Vital Signs (Past 12 Hours) Vital Signs Temp Pulse Pulse Resp BP Pulse Ox O2 Del Method 10/07/24 07:25 97.7 F 50 L 19 169/85 H 99 Room Air 10/07/24 05:15 59 L 173/87 H 10/07/24 03:37 98.1 F 55 L 18 185/89 H 96 Room Air 10/06/24 23:49 55 L 10/06/24 23:15 97.7 F 73 20 183/85 H 98 Room Air PG Care Time/CCT Total # of Minutes Spent Total Time Spent with Patient: Total time spent is greater than 50% in coordination of care (as documented) at patient's floor/unit and/or counseling patient: Coding Diagnoses Acute lower GI bleeding K92.2 Adenocarcinoma C80.1 Symptomatic hypotension I95.9
[2024-10-07 10:59] VITALS: PULSE 53; RESP 17; TEMP 97.9; O2SAT 98
[2024-10-07 12:00] VITALS: BP 160/97
--- NOTE | 2024-10-07 17:27 | Discharge Summary ---
Discharge Summary Date of Service October 07, 2024 Principal Dx & Hospital Course #1 = Principal Diagnosis (1) Acute lower GI bleeding: (2) Adenocarcinoma: (3) Symptomatic hypotension: Plan Patient is a 74-year-old male with past medical history of hypertension, OA, and colon cancer presented due to significant rectal bleeding. 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 He is now s/p partial left hemicolectomy, splenectomy, and Julio Cesar pancreatectomy resection at [facility] who has since opted for homeopathic treatment rather than chemoradiation. He is on Boluoke, mistletoe, and vitamin C. associated symptomatic hypotension. Found to have Gastritis on endoscopy and anastamotic ulcer in colon that required cauterization as clips did not provide hemostasis from bleeding site #lower GI bleed/Hx adenocarcinoma - APCT shows concern for nonspecific colitis vs residual neoplasm and liver masses and small amount of ascites, otherwise postsurgical changes. Patient was initially unstable with symptomatic hypotension, reported 77/48. Hypotension resolved after IVF in ED. - pathology from 10/03 stomach H pylori negative, chronic active gastritis, colon biopsy tissue not listed yet, instructed to follow up with oncology - 2 units PRBC, 1 unit FFP 10/06 hemoglobin level is stable at 9.9 on Monday after the procedure patient's hemoglobin was 10 #HTN hypotensive on arrival -bp up and pt will resume lilsinopril at previous dose of 20 mg a day and follow up with pcp - Back to lisinopril 20 mg Notes For Next Care Provider needs to have tissue follow up for colon anastomotic area pt felt protonix was causing some somatic symptoms will have home on pepcid for gastric irritation Admission HPI Per Admitting Provider Patient is a 74-year-old male with past medical history of hypertension, OA, and colon cancer presented due to significant rectal bleeding that began at 6 PM. 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 He is now s/p partial left hemicolectomy, splenectomy, and Julio Cesar pancreatectomy resection at [facility] who has since opted for homeopathic treatment rather than chemoradiation. He is on Boluoke, mistletoe, and vitamin C. Patient had approximately a 5 point drop in his hemoglobin after several episodes of diffuse rectal bleeding along with associated symptomatic hypotension. Blood pressure has improved after IV fluids and patient has 2 units PRBC ordered and currently transfusing this unit. Will trial FFP to reduce the bleeding given patient is on fibrinolytic supplement, and feels tired reduce bleeding, patient will need transfer to tertiary care center for IR guided embolization. Patient seen at bedside with his present. He stated approximately 6 PM the rectal bleeding started. In the ED he had an episode of symptomatic hypotension which he developed dizziness, weakness, and nausea; this is since resolved and pressures have improved to 136/76 after IV fluids. He denies any abdominal pain, nausea, vomiting, current lightheadedness or dizziness. After surgical procedure noted above, patient has opted for homeopathic treatment with supplements first chemo and radiation. He follows with Kim and a functional medicine provider in [place]. Patient stated that he has been following with functional medicine provider receiving the supplements to treat his cancer, recent PET scan did show a liver metastasis which patient believed was okay. Patient is agreeable with above. He denies any nicotine or alcohol use. He took his home medications this morning. He wishes to be full code. Blood consent form signed at bedside. Discharge Exam awake and alert, no distress, hgb has been stable abd is soft, lungs are clear Discharge Plan Discharge Items Patient Disposition: Home - Self-Care Reason For Visit: LGIB Discharge Diagnosis: anemia from lower GI bleed hypertension Condition on Discharge: Serious Activity: Per Instructions section Non-emergency contact: Primary Care Provider and Specialist Call non-emergency contact if: your symptoms worsen Follow-up/Referrals: Baljit Boateng [Primary Care Provider] - (Dr. Boateng's office will call Pt to schedule follow up) Diet: Low Sodium (2gm) Addtl Attending Provider Instructions: You were treated for anemia, you did have a blood transfusion, in the after affects your blood pressure was up a bit, you will be asked to restart you lisinopril 20 mg once a day and follow up with Dr Boateng You did have some stomach irritation on your upper endoscopy and you had a ulcer at the conecti of you colon, this was cauterized. this may bleed a small amount after discharge but it should be a small amount, if bleeding more than one bowel movement, if you have black stools, if you are weak or dizzy or look pale to your family return for a blood count recheck please take pecid ( Famotidine) once a day for about 6 weeks, we chose this medicine because you had said you felt pooly after taking Protonix ( pantoprozole) Pending Studies at Discharge: No Stand-Alone Forms: My [facility], Smoking Cessation Medications and DC Order Prescriptions: New famotidine [Pepcid] 40 mg tablet 40 mg PO DAILY Qty: 30 2RF Continued Boluoke 1 tab PO DAILY Rx Instructions: UNKNOWN STRENGTH, UNABLE TO VERIFY. Mistletoe Extract 1 dose [id number] [id number] Rx Instructions: DOSE AND STRENGTH UNKNOWN, UNABLE TO VERIFY. Changed lisinopril 10 mg Tablet 20 mg PO QAM Qty: 0 0RF Discharge Orders: Discharge Order (Routine); Ordered 10/07/24 Ordered By: Jordy Quevedo Admission Data Admit Date/Time: 10/02/24 00:52 Attending Provider: Jordy Quevedo Admit Provider: Arturo Escobar Primary Care Provider: Baljit Boateng Other Providers: Willem Painter; Arturo Escobar; Purnima Sheikh; Vida Andrade Other Interventions: Discharge Summary Assessment (RN) Last Done: 10/07/24 12:00 Hospital Stay Data Consultations 10/01/24 22:50 Consult Gastroenterology Stat 10/01/24 23:38 ED Decision to Admit Stat 10/03/24 17:04 Consult Palliative Care Routine Procedures Performed Operation Date: 10/03/24 16:30 Actual Procedures p EGD Biopsy Cytology - Willem Painter MD s Colonoscopy Hemostasis - Willem Painter MD Diagnostic Imagining Performed 10/01/24 21:37 CT abd pelvis IV con only Stat Pending Results Patient Have Any Pending Studies at Discharge: No Discharge Instructions Given to Patient (Per Discharging Provider) You were treated for anemia, you did have a blood transfusion, in the after affects your blood pressure was up a bit, you will be asked to restart you lisinopril 20 mg once a day and follow up with Dr Boateng You did have some stomach irritation on your upper endoscopy and you had a ulcer at the conecti of you colon, this was cauterized. this may bleed a small amount after discharge but it should be a small amount, if bleeding more than one bowel movement, if you have black stools, if you are weak or dizzy or look pale to your family return for a blood count recheck please take pecid ( Famotidine) once a day for about 6 weeks, we chose this medicine because you had said you felt pooly after taking Protonix ( pantoprozole) Total Time Total Time Spent Total Time Spent (In Minutes): It required greater than 30 minutes to prepare this patient for discharge. Coding Level of Care Code 89989 INP/OBS DISCH >30 MIN Diagnoses Acute lower GI bleeding K92.2 Adenocarcinoma C80.1 Symptomatic hypotension I95.9
== END 2024-10-07 15:12 | disposition home or self-care (01) | DRG 378 ==
LOC: SUATTDRO → ED 21:12 → 1E 10-02 00:52 → SUATTDRO 10-02 00:52 → 1E 10-02 02:05 → 2S 10-04 06:50